=== PATIENT | male | born 1955 | race African-American/Black ===

== ENCOUNTER 2016-05-14 22:11 | Observation (INO) | payer MEDICARE, OTHER ==
[~2016-05-14] VITALS: Ht 175.3 cm; Wt 81.0 kg
[~2016-05-14 22:11] MED LIST: ALBU6.7H INH; ASPI81TA82 PO; BUME0.5T PO; CARV3.12 OR; DIGO0.25 PO; LOSA25TA31 PO; NITR0.4S SL; SPIR25TA PO; WAL-10TA2 PO
[2016-05-14 22:17] VITALS: BP 107/67; PULSE 70; RESP 16; TEMP 98; O2SAT 95
[2016-05-14 22:32] VITALS: BP 132/92; PULSE 89; RESP 18; TEMP 97.9; O2SAT 100
[2016-05-14 23:47] VITALS: PULSE 68; RESP 18; O2SAT 98
--- NOTE | 2016-05-14 23:47 | RADRPT ---
EXAM DATE/TIME: 05/14/2016 23:41 [place] COMPARISON: CHEST SINGLE AP, August 10, 2015, 2:12. INDICATIONS : Chest pain. MEDICAL HISTORY : Congestive heart failure. SURGICAL HISTORY : Pacemaker. ENCOUNTER: Initial ACUITY: 1 day PAIN SCORE: 4/10 LOCATION: Left chest FINDINGS: Pacemaker device is noted with control pack over the left chest. Lungs are focally clear. Cardiomedia stinal contours are stable with mild cardiac enlargement. CONCLUSION: No acute disease Rico Andre MD on May 14, 2016 at 23:45 Board Certified Radiologist. This report was verified electronically.
--- NOTE | 2016-05-14 23:48 | PD ---
HPI Chief Complaint: Chest Pain Time Seen by Provider: 23:29 Travel History International Travel<30 days: No Contact w/Intl Traveler<30days: No Traveled to known affect area: No History of Present Illness HPI The patient is a 61 year old male who presents to the [facility] emergency department with a history of chest pain surrounding his pacemaker site and shortness of breath that he reports is been present for the last month. He reports that he has a history of congestive heart failure with bradycardia and ventricular tachycardia managed by Dr. Styles. 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 He reports that they did do a stress test at that time that was reportedly normal. He reports that he is using an inhaler, however he denies ever being diagnosed with COPD or asthma. He denies any prior history of smoking. He reports that his cough is productive at times of clear sputum. He denies having any recent fevers or other congestion. He reports that he did have lower extremity edema previously, however this has improved with following the diet recommended by his dry mill operator. The patient reports that he did take his baby aspirin earlier today. The patient denies any recent neck pain, abdominal pain, vomiting, diarrhea, urinary symptoms, or neurologic symptoms. [facility] Past Medical History Narrative Medical The patient's past medical history is significant for a TIA, bradycardia, history of ventricular tachycardia congestive heart failure, nephrolithiasis. Hx Anticoagulant Therapy: Yes Arthritis: No Asthma: No Autoimmune Disease: No Blood Disorders: No Anxiety: No Depression: No Heart Rhythm Problems: Yes Cancer: No Cardiovascular Problems: Yes (HTN, PACEMAKER) High Cholesterol: No Chemotherapy: No Chest Pain: Yes Congestive Heart Failure: Yes COPD: No Cerebrovascular Accident: Yes (TIA) Diabetes: No Diminished Hearing: No Endocrine: No GERD: No Genitourinary: No Hiatal Hernia: No Hypertension: Yes Immune Disorder: No Kidney Stones: Yes Musculoskeletal: No Neurologic: Yes Psychiatric: No Reproductive: No Respiratory: Yes Immunizations Current: Yes Migraines: No Radiation Therapy: No Renal Failure: No Seizures: No Sleep Apnea: No Thyroid Disease: No Ulcer: No Past Surgical History Narrative Surgical The patient's past surgical history is significant for a pacemaker placement. Abdominal Surgery: No AICD: Yes Arteriovenous Shunt: No Cardiac Surgery: Yes (PACEMAKER DEFIB) Ear Surgery: No Endocrine Surgery: No Eye Surgery: No Genitourinary Surgery: No Gynecologic Surgery: No Insulin Pump: No Joint Replacement: No Oral Surgery: No Pacemaker: Yes Thoracic Surgery: No Other Surgery: Yes (glass removal from arm.) Social History Alcohol Use: No Tobacco Use: No Substance Use: No Allergies-Medications (Allergen,Severity, Reaction): Coded Allergies: No Known Allergies (Verified , 01/04/16) Reported Meds & Prescriptions Reported Meds & Active Scripts Active Reported Spironolactone 25 Mg Tab 25 Mg PO DAILY Nitroglycerin SL (Nitroglycerin) 0.4 Mg Subl 0.4 Mg SL DIRECTED PRN ONE TABLET UNDER THE TONGUE NEEDED FOR CHEST PAIN, MAY REPEAT EVERY FIVE MINUTES FOR A TOTAL OF 3 DOSES OR CALL 911 IF NO RELIEF Losartan (Losartan Potassium) 25 Mg Tab 25 Mg PO DAILY Loratadine 10 Mg Tab 10 Mg PO DAILY Digoxin 0.25 Mg Tab 0.25 Mg PO DAILY Carvedilol 3.125 Mg Tab 3.125 Mg PO BID Bumex (Bumetanide) 0.5 Mg Tab 0.5 Mg PO DAILY Aspirin 81 Mg Chew 81 Mg CHEW DAILY Proventil Hfa 6.7 GM Inh (Albuterol Sulfate) 90 Mcg/Act Aer 1 Puff INH Q4H PRN Review of Systems Except as stated in HPI: all other systems reviewed are Neg General / Constitutional: No: Fever Eyes: No: Visual changes HENT: No: Headaches Cardiovascular: Positive: Chest Pain or Discomfort, Dyspnea on exertion Respiratory: Positive: Cough, Shortness of Breath, Wheezing Gastrointestinal: No: Abdominal Pain Genitourinary: No: Dysuria Musculoskeletal: No: Pain Skin: No Rash Neurologic: No: Weakness Psychiatric: No: Depression Endocrine: No: Polydipsia Hematologic/Lymphatic: No: Easy Bruising Physical Exam Narrative General: The patient is a well-developed well-nourished male in no acute distress. Head and Neck exam: Head is normocephalic atraumatic. Eyes: EOMI, pupils are equal round and reactive to light. Nose: Midline septum with pink mucous membranes Mouth: Dentition unremarkable. Moist mucus membranes. Posterior oropharynx is not erythematous. No tonsillar hypertrophy. Uvula midline. Airway patent. Neck: No palpable lymphadenopathy. No nuchal rigidity. No thyromegaly. Cardiovascular: Regular rate and rhythm without murmurs, gallops, or rubs. No pulse deficit to the extremities and simultaneous auscultation and palpation of his radial artery. On palpation of the left side of his chest over his pacemaker, the patient has no swelling or erythema, no tenderness on palpation. No crepitus. Lungs: Soft expiratory wheezes audible in the lower lung contreras. No rhonchi, no crackles. Abdomen: Soft, without tenderness to palpation in all 4 quadrants of the abdomen. No guarding, rebound, or rigidity. Normal bowel sounds are audible. Extremities: No clubbing, cyanosis, or edema. 2+ pulses in all 4 extremities. No calf tenderness on palpation. Back: No spinous process tenderness to palpation. No costovertebral angle tenderness to palpation. Neurologic Exam: Grossly nonfocal. Skin Exam: No rash noted. Intact skin that is warm and dry. Data Data Last Documented VS Vital Signs Date Time Temp Pulse Resp B/P Pulse Ox O2 Delivery O2 Flow Rate FiO2 05/15/16 00:55 100 21 05/14/16 23:47 68 18 05/14/16 22:32 97.9 132/92 Room Air Orders Electrocardiogram (05/14/16 ) Complete Blood Count With Diff (05/14/16 23:29) Comprehensive Metabolic Panel (05/14/16 23:29) Creatine Kinase (Cpk) (05/14/16 23:29) Ckmb (Isoenzyme) Profile (05/14/16 23:29) Troponin I (05/14/16 23:29) B-Type Natriuretic Peptide (05/14/16 23:29) Prothrombin Time / Inr (Pt) (05/14/16 23:29) Act Partial Throm Time (Ptt) (05/14/16 23:29) Lipase (05/14/16 23:29) Urinalysis - C+S If Indicated (05/14/16 23:29) Magnesium (Mg) (05/14/16 23:29) Chest, Single Ap (05/14/16 23:29) Iv Access Insert/Monitor (05/14/16 23:29) Ecg Monitoring (05/14/16 23:29) Oximetry (05/14/16 23:29) Digoxin (05/15/16 00:04) CKMB (05/14/16 23:30) CKMB% (05/14/16 23:30) Nitroglycerin Sl (Nitrostat Sl) (05/15/16 01:00) Nitroglycerin 2% Oint (Nitroglycerin 2% (05/15/16 01:00) Aspirin Chew (Aspirin Chew) (05/15/16 01:00) Albuterol-Ipratropium Neb (Duoneb Neb) (05/15/16 01:00) Admit Order (Ed Use Only) (05/15/16 01:07) Labs Laboratory Tests Test 05/14/16 05/15/16 23:30 00:10 White Blood Count 4.8 TH/MM3 Red Blood Count 5.34 MIL/MM3 Hemoglobin 14.4 GM/DL Hematocrit 44.5 % Mean Corpuscular Volume 83.3 FL Mean Corpuscular Hemoglobin 27.0 PG Mean Corpuscular Hemoglobin 32.4 % Concent Red Cell Distribution Width 17.9 % Platelet Count 181 TH/MM3 Mean Platelet Volume 9.2 FL Neutrophils (%) (Auto) 57.7 % Lymphocytes (%) (Auto) 32.1 % Monocytes (%) (Auto) 9.2 % Eosinophils (%) (Auto) 0.4 % Basophils (%) (Auto) 0.6 % Neutrophils # (Auto) 2.8 TH/MM3 Lymphocytes # (Auto) 1.5 TH/MM3 Monocytes # (Auto) 0.4 TH/MM3 Eosinophils # (Auto) 0.0 TH/MM3 Basophils # (Auto) 0.0 TH/MM3 CBC Comment DIFF FINAL Differential Comment Prothrombin Time 15.5 SEC Prothromb Time International 1.4 RATIO Ratio Activated Partial 25.7 SEC Thromboplast Time Sodium Level 135 MEQ/L Potassium Level 4.8 MEQ/L Chloride Level 100 MEQ/L Carbon Dioxide Level 25.4 MEQ/L Anion Gap 10 MEQ/L Blood Urea Nitrogen 35 MG/DL Creatinine 1.84 MG/DL Estimat Glomerular Filtration 46 ML/MIN Rate Random Glucose 106 MG/DL Calcium Level 8.3 MG/DL Magnesium Level 2.0 MG/DL Total Bilirubin 1.4 MG/DL Aspartate Amino Transf 68 U/L (AST/SGOT) Alanine Aminotransferase 62 U/L (ALT/SGPT) Alkaline Phosphatase 178 U/L Total Creatine Kinase 164 U/L Creatine Kinase MB 1.8 NG/ML Troponin I 0.07 NG/ML B-Type Natriuretic Peptide 1227 PG/ML Total Protein 7.8 GM/DL Albumin 2.5 GM/DL Lipase 238 U/L Digoxin Level 0.8 NG/ML MDM Medical Decision Making Medical Screen Exam Complete: Yes Emergency Medical Condition: Yes Medical Record Reviewed: Yes Interpretation(s) Last Impressions Chest X-Ray 05/14/16 2329 Signed Impressions: Service Date/Time: Saturday, May 14, 2016 23:41 - CONCLUSION: No acute disease Rico Andre MD Differential Diagnosis Acute coronary syndrome, versus COPD exacerbation, versus congestive heart failure exacerbation, versus pneumonia Narrative Course During the course of the patients emergency department visit, the patients history, examination, and differential diagnosis were reviewed with the patient. The patient had IV access obtained and blood work sent for analysis. The patient was placed on a vegetable trimmer with oximetry and blood pressure monitoring. An EKG was ordered. The patient's EKG was compared to prior EKGs and showed no acute abnormality. The patient was provided aspirin 162 mg by mouth 1. The patient was given a DuoNeb 1. The patient was given nitroglycerin sublingual 1, nitroglycerin 1/ 2 inch the chest wall. The patients laboratory studies were reviewed and remarkable for a white count of 4.8, hemoglobin 14.4, platelets 181 with 9.2 monocytes. CMP is remarkable for sodium of 135, BUN 35, creatinine 1.84, calcium 8.3, total bilirubin 1.4, AST 68, alkaline phosphatase 178, CPK 164, troponin I of 0.07, BNP 1227, lipase 238. INR 1.4 Radiology studies were reviewed and remarkable for a chest x-ray that shows no acute abnormality. As the patient is reporting chest pain with an intermediate troponin I, the patient will be admitted to the hospital for rule out serial cardiac enzyme protocol. The patient's elevated troponin could be related to the patient's renal insufficiency which is slightly worse compared to previously. The trend of the patient's troponins will be evaluated over the next day. The patients results were discussed with the patient, including the plan of care. I explained that further testing and/ or monitoring is indicated based on the patients history, examination, and/ or laboratory findings. Therefore, I recommended admission for additional evaluation. The patient expressed understanding and was agreeable with this plan. The patient was admitted to the hospital in stable condition and sent to a bed under the care of Dr. Lopez. Physician Communication Physician Communication The patient's case was discussed with Dr. Lopez who did agree to admit the patient for further evaluation and treatment at this time Diagnosis Primary Impression: Chest pain, rule out acute myocardial infarction Additional Impression: Elevated troponin I level Admitting Information Admitting Physician Requests: Admit Tari Sanchez MD May 14, 2016 23:48
[2016-05-14 23:55] LABS: AUTOMATED NEUTROPHIL # 2.8 TH/MM3 (1.8-7.7); BASOPHIL % 0.6 % (0.0-2.0); EOSINOPHIL % 0.4 % (0.0-4.0); HEMATOCRIT 44.5 % (39.0-51.0); HEMO FLAGS DIFF FINAL; LYMPH % 32.1 % (9.0-44.0); LYMPHOCYTE # 1.5 TH/MM3 (1.0-4.8); MEAN CELL VOLUME 83.3 FL (80.0-100.0); MEAN CORPUSCULAR HGB CONC 32.4 % (32.0-36.0); MONO % 9.2 % (0.0-8.0); NEUT % 57.7 % (16.0-70.0); PLATELET COUNT 181 TH/MM3 (150-450); RED BLOOD COUNT 5.34 MIL/MM3 (4.50-5.90); RED CELL DISTRIBUTION WIDTH 17.9 % (11.6-17.2); WHITE BLOOD COUNT 4.8 TH/MM3 (4.0-11.0)
[2016-05-15] VITALS (10 sets, daily range): BP systolic 101–122; BP diastolic 65–84; PULSE 53–74; RESP 18–21; TEMP 95.8–98.8; O2SAT 90–100
[2016-05-15] MEDS ORDERED: BUME1TAB25 PO (00:03)
[2016-05-15] MEDS ORDERED: ASPI81CH CHEW (00:03)
[2016-05-15] MEDS ORDERED: NITR1SUB3 SL (00:03)
[2016-05-15] MEDS ORDERED: LOSA25TA PO (00:03)
[2016-05-15] MEDS ORDERED: LORA10TA PO (00:03)
[2016-05-15] MEDS ORDERED: DIGO0.25 PO (00:03)
[2016-05-15] MEDS ORDERED: CARV3.12 PO (00:03)
[2016-05-15] MEDS ORDERED: SPIR25TA PO (00:03)
[2016-05-15] MEDS ORDERED: ALBU6.7H INH (00:03)
[2016-05-15 00:15] LABS: ALKALINE PHOSPHATASE 178 U/L (45-117); ALT (GPT) 62 U/L (12-78); ANION GAP 10 MEQ/L (5-15); AST (GOT) 68 U/L (15-37); BICARBONATE 25.4 MEQ/L (21.0-32.0); BLOOD UREA NITROGEN 35 MG/DL (7-18); CHLORIDE 100 MEQ/L (98-107); CREATINE KINASE 164 U/L (39-308); GLOMERULAR FILTRATION RATE 46 ML/MIN (>89); POTASSIUM 4.8 MEQ/L (3.5-5.1); SODIUM (NA) 135 MEQ/L (136-145); TOTAL BILIRUBIN ADULT 1.4 MG/DL (0.2-1.0)
[2016-05-15 00:23] LABS: APTT (PATIENT) 25.7 SEC (24.3-30.1); INTERNATIONAL NORMALIZED RATIO 1.4 RATIO; PROTHROMBIN TIME - PATIENT 15.5 SEC (9.8-11.6)
[2016-05-15 00:32] LABS: CKMB 1.8 NG/ML (0.5-3.6)
[2016-05-15] MEDS ORDERED: RESP: ALBUTEROL 2.5 MG/IPRATROPIUM 0.5 MG NEB (SCH) NEB ONE (01:00)
[2016-05-15] MEDS ORDERED: NITROGLYCERIN 2% OINT 1 GM PACKET TOPICAL ONE (01:00)
[2016-05-15] MEDS ORDERED: ASPIRIN 81 MG CHEW TAB CHEW ONE (01:00)
[2016-05-15] MEDS ORDERED: NITROGLYCERIN 0.4 MG SL 25 TABS/BTL SL ONE (01:00)
[2016-05-15 01:44] LABS: BACTERIA, URINE RARE /hpf; BLOOD, URINE NEG (NEG); GLUCOSE,URINE NEG (NEG); HYALINE CAST, URINE 15 /lpf (RARE); KETONE, URINE NEG (NEG); MUCUS URINE FEW /lpf (OCC); NITRITE,URINE NEG (NEG); PH, URINE 5.5 (5.0-8.5); SQUAMOUS EPITHELIAL CELL URINE <1 /hpf (0-5); URINE COLOR YELLOW (YELLW/STRAW)
[2016-05-15 01:45] LABS: COMMENT (UR) CULT NOT INDICATED; CULTURE IF INDICATED CULT NOT INDICATED
--- NOTE | 2016-05-15 08:30 | HHI.HP ---
History of Present Illness Primary Care Physician Tao Lopez MD Admission Diagnosis cp ro mi, intermediate troponin Diagnoses: (1) CHF (congestive heart failure) (2) Elevated troponin I level (3) Chest pain, rule out acute myocardial infarction History of Present Illness 61 Y AAM. WAS AT [employer]OND[employer]OMIN[employer] YESTERDAY AND HAD CP. HE ADDS HE FELT PAIN ALL OVER LIKE HIS BODY WAS SQUEEZING IN AND THE BECAME SOB . PT RESENTED TO [facility]. PT SEEN IN ER. I WAS CALLED FOR ADMIT. PT STATES HIS CP IS GONE BUT HE IS VERY SHORT OF BREATH WITH ANY MOVEMENT. NTG RELIEVED THE PAIN. HE IS AFRAID TO MOVE HE REPORTS. PT DOES HAVE ANXIETY YET HAS HAD POOR UNDERSTANDING OF HIS CURRENT ILLNESS. Review of Systems ROS Limitations: Clinical Condition, Poor Historian Other NEGATIVE FOURTEEN POINT ROS EXCEPT ABOVE. Past Family Social History Allergies: Coded Allergies: No Known Allergies (Verified , 01/04/16) Past Medical History SCHF RI Past Surgical History PACER Active Ordered Medications Current Medications Medications (Trade) Dose Ordered Sig/Levi Route Start Time Stop Time Status Last Admin (Nitroglycerin 2% Oint) 0.5 inch Q6H TOPICAL 05/15/16 08:00 Family History NC Social History NO E/T/D; DISABLED Physical Exam Vital Signs Vital Signs Date Time Temp Pulse Resp B/P Pulse Ox O2 Delivery O2 Flow Rate FiO2 05/15/16 04:51 98.8 64 21 107/69 98 05/15/16 04:09 73 05/15/16 02:10 60 18 106/65 94 Room Air 05/15/16 00:55 100 21 05/14/16 23:47 68 18 98 05/14/16 22:32 97.9 89 18 132/92 100 Room Air 05/14/16 22:17 98.0 70 16 107/67 95 Room Air Physical Exam GENERAL: This is a well-nourished, well-developed patient, in no apparent distress. SKIN: No rashes, ecchymoses or lesions. Cool and dry. HEAD: Atraumatic. Normocephalic. No temporal or scalp tenderness. EYES: Pupils equal round and reactive. Extraocular motions intact. No scleral icterus. No injection or drainage. ENT: Nose without bleeding, purulent drainage or septal hematoma. Throat without erythema, tonsillar hypertrophy or exudate. Uvula midline. Airway patent. NECK: Trachea midline. No JVD or lymphadenopathy. Supple, nontender, no meningeal signs. CARDIOVASCULAR: Regular rate and rhythm without murmurs, gallops, or rubs. RESPIRATORY: Clear to auscultation. Breath sounds equal bilaterally. No wheezes , rales, or rhonchi. GASTROINTESTINAL: Abdomen soft, non-tender, nondistended. No hepato-splenomegaly , or palpable masses. No guarding. MUSCULOSKELETAL: Extremities without clubbing, cyanosis, or edema. No joint tenderness, effusion, or edema noted. No calf tenderness. Negative Homans sign bilaterally. NEUROLOGICAL: Awake and alert. Cranial nerves II through XII intact. Motor and sensory grossly within normal limits. 3 out of 5 muscle strength in all muscle groups. Normal speech. Laboratory Laboratory Tests Test 05/14/16 05/15/16 05/15/16 05/15/16 23:30 00:10 01:30 06:35 White Blood Count 4.8 Red Blood Count 5.34 Hemoglobin 14.4 Hematocrit 44.5 Mean Corpuscular Volume 83.3 Mean Corpuscular Hemoglobin 27.0 Mean Corpuscular Hemoglobin 32.4 Concent Red Cell Distribution Width 17.9 Platelet Count 181 Mean Platelet Volume 9.2 Neutrophils (%) (Auto) 57.7 Lymphocytes (%) (Auto) 32.1 Monocytes (%) (Auto) 9.2 Eosinophils (%) (Auto) 0.4 Basophils (%) (Auto) 0.6 Neutrophils # (Auto) 2.8 Lymphocytes # (Auto) 1.5 Monocytes # (Auto) 0.4 Eosinophils # (Auto) 0.0 Basophils # (Auto) 0.0 CBC Comment DIFF FINAL Differential Comment Prothrombin Time 15.5 Prothromb Time International 1.4 Ratio Activated Partial 25.7 Thromboplast Time Sodium Level 135 Potassium Level 4.8 Chloride Level 100 Carbon Dioxide Level 25.4 Anion Gap 10 Blood Urea Nitrogen 35 Creatinine 1.84 Estimat Glomerular Filtration 46 Rate Random Glucose 106 Calcium Level 8.3 Magnesium Level 2.0 Total Bilirubin 1.4 Aspartate Amino Transf 68 (AST/SGOT) Alanine Aminotransferase 62 (ALT/SGPT) Alkaline Phosphatase 178 Total Creatine Kinase 164 Creatine Kinase MB 1.8 Troponin I 0.07 0.06 B-Type Natriuretic Peptide 1227 Total Protein 7.8 Albumin 2.5 Lipase 238 Digoxin Level 0.8 Urine Color YELLOW Urine Turbidity CLEAR Urine pH 5.5 Urine Specific [place] 1.012 Urine Protein 30 Urine Glucose (UA) NEG Urine Ketones NEG Urine Occult Blood NEG Urine Nitrite NEG Urine Bilirubin NEG Urine Urobilinogen 2.0 Urine Leukocyte Esterase NEG Urine RBC 1 Urine WBC 2 Urine Squamous Epithelial <1 Cells Urine Bacteria RARE Urine Hyaline Casts 15 Urine Mucus FEW Microscopic Urinalysis Comment CULT NOT INDICATED Result Diagram: 05/14/16 23305/14/16 233 Imaging Last 24 hours Impressions Chest X-Ray 05/14/162328 Signed Impressions: Service Date/Time: Saturday, May 14, 2016 23:41 - CONCLUSION: No acute disease Rico Andre MD Assessment and Plan Problem List: (1) CHF (congestive heart failure) Status: Acute (2) Elevated troponin I level Status: Acute (3) Chest pain, rule out acute myocardial infarction Status: Acute Assessment and Plan NSTEMI ACS SCHF ANXIETY AC ON CKD 3 EDEMA DM PLAN: CARDIAC ENZYMES NTG PASTE ASA HEPARIN BID PROTONIX IV PT DR SOLIZ CONSULT OBS ADMIT SEE MY ORDERS PLEASE Tao Lopez MD May 15, 2016 08:30
[2016-05-15] MEDS ORDERED: BISACODYL 10 MG SUPP PR PRN (08:45)
[2016-05-15] MEDS ORDERED: ONDANSETRON HCL 4 MG/2 ML VIAL IVP PRN (08:45)
[2016-05-15] MEDS ORDERED: ACETAMINOPHEN/HYDROcodone 325 MG/5 MG TAB PO PRN (08:45)
[2016-05-15] MEDS ORDERED: ACETAMINOPHEN 325 MG TAB PO PRN (08:45)
[2016-05-15] MEDS ORDERED: MORPHINE SULFATE 8 MG/ML INJ IV PUSH PRN (08:45)
[2016-05-15] MEDS ORDERED: SODIUM CHLORIDE 0.9% FLUSH 5 ML FLUSH FLUSH PRN (08:45)
[2016-05-15] MEDS ORDERED: NALOXONE HCL 0.4 MG/ML AMP IV PRN (08:45)
[2016-05-15] MEDS ORDERED: LORazepam 0.5 MG TAB PO PRN (08:45)
[2016-05-15] MEDS ORDERED: MAGNESIUM HYDROXIDE SUSP 30 ML CUP PO PRN (08:45)
[2016-05-15] MEDS ORDERED: hydrALAZINE HCL 20 MG/ML VIAL IV PUSH PRN (08:45)
[2016-05-15] MEDS ORDERED: ENALAPRILAT 2.5 MG/2 ML VIAL IV PUSH PRN (08:45)
[2016-05-15] MEDS ORDERED: PILL SPLITTER OTHER PRN (08:45)
[2016-05-15] MEDS ORDERED: cloNIDine HCL 0.1 MG TAB PO PRN (08:45)
[2016-05-15] MEDS: HEPARIN SODIUM - SQ 10,000 UNITS/ML VIAL SQ SCH ×2 (09:00→22:03)
[2016-05-15] MEDS ORDERED: DIGOXIN 0.25 MG TAB PO SCH (09:00)
[2016-05-15] MEDS: ASPIRIN 81 MG CHEW TAB CHEW SCH (09:01)
[2016-05-15] MEDS: BUMETANIDE 1 MG TAB PO SCH (09:01)
[2016-05-15] MEDS: DOCUSATE SODIUM 100 MG CAP PO SCH ×2 (09:01→22:02)
[2016-05-15] MEDS: SPIRONOLACTONE 25 MG TAB PO SCH (09:01)
[2016-05-15] MEDS: NITROGLYCERIN 2% OINT 1 GM PACKET TOPICAL SCH ×3 (09:01→20:00)
[2016-05-15] MEDS: CARVEDILOL 3.125 MG TAB PO SCH ×2 (09:01→22:02)
[2016-05-15] MEDS: SODIUM CHLORIDE 0.9% FLUSH 5 ML FLUSH FLUSH SCH ×2 (09:02→22:02)
[2016-05-15] MEDS: PANTOPRAZOLE SODIUM 40 MG VIAL IV PUSH SCH (09:02)
--- NOTE | 2016-05-15 19:27 | EKG ---
Date Performed: 05/14/2016 Time Performed: 22:41:54 PTAGE: 61 years EKG: Sinus rhythm POSSIBLE LEFT ATRIAL ENLARGEMENT POSSIBLE ANTERIOR MYOCARDIAL INFARCTION ABNORMAL ECG PREVIOUS TRACING : 08/10/2015 10.52 DOCTOR: Jsoe Rodriguez Interpretating Date/Time 05/15/2016 19:23:28
[2016-05-15] MEDS ORDERED: ZOLPIDEM TARTRATE 5 MG TAB PO PRN (21:00)
[2016-05-16] VITALS (10 sets, daily range): BP systolic 98–121; BP diastolic 62–83; PULSE 61–112; RESP 16–20; TEMP 97.2–98.7; O2SAT 94–99
[2016-05-16] MEDS: NITROGLYCERIN 2% OINT 1 GM PACKET TOPICAL SCH ×2 (02:00→09:07)
[2016-05-16 04:15] LABS: AUTOMATED NEUTROPHIL # 2.4 TH/MM3 (1.8-7.7); BASOPHIL % 0.3 % (0.0-2.0); EOSINOPHIL % 0.6 % (0.0-4.0); HEMATOCRIT 42.1 % (39.0-51.0); HEMO FLAGS DIFF FINAL; LYMPH % 35.4 % (9.0-44.0); LYMPHOCYTE # 1.6 TH/MM3 (1.0-4.8); MEAN CELL VOLUME 83.6 FL (80.0-100.0); MEAN CORPUSCULAR HGB CONC 32.2 % (32.0-36.0); MONO % 9.4 % (0.0-8.0); NEUT % 54.3 % (16.0-70.0); PLATELET COUNT 172 TH/MM3 (150-450); RED BLOOD COUNT 5.03 MIL/MM3 (4.50-5.90); WHITE BLOOD COUNT 4.5 TH/MM3 (4.0-11.0)
[2016-05-16 04:31] LABS: BICARBONATE 25.9 MEQ/L (21.0-32.0)
--- NOTE | 2016-05-16 07:13 | MB ---
cc: WINSTON SOLIZ DATE OF CONSULTATION 05/15/2016 REASON FOR CONSULTATION Mr. Mann is a 61 year-old black male with a history of severe nonischemic cardiomyopathy, chronic systolic congestive heart failure, and Medtronic implantable defibrillator placement. He went to [place] yesterday and developed sudden shortness of breath, pain all over his body with squeezing sensation. He presented to the emergency room and had no pain, but was still short of breath. This was relieved with nitroglycerin. The patient slept well and today has no cardiac symptoms. PAST MEDICAL HISTORY Positive for: 1. Severe nonischemic cardiomyopathy with an ejection fraction of 15%. 2. Cardiac catheterization in 08/2011 showed widely patent coronary arteries. 3. Medtronic single chamber defibrillator was placed in 08/2011. 4. The patient also has a history of left elbow surgery. MEDICATIONS At home include: 1. Baby aspirin 2. Bumex 0.5 mg daily 3. Digoxin 0.25 mg daily 4. Spironolactone 25 mg daily 5. Carvedilol 3.125 mg twice a day 6. Losartan 25 mg once a day ALLERGIES None SOCIAL HISTORY The patient does not smoke or drink alcohol. FAMILY HISTORY Negative for heart disease. REVIEW OF SYSTEMS Otherwise negative. PHYSICAL EXAM Blood pressure 109/66, pulse 71 and regular. HEAD, EYES, EARS, NOSE, AND THROAT: Negative. NECK: 2+carotid upstrokes. No bruits. LUNGS: Clear. HEART: Regular with no murmur, gallop, rub. ABDOMEN: Soft, no bruits. EXTREMITIES: Without edema. 2+ distal pulses. NEUROLOGIC: Grossly nonfocal. EKG was reviewed and showed a normal sinus rhythm, delayed R-wave progression in the precordial leads. LABS Hemoglobin 14.4, potassium 4.8, creatinine 1.84, CK 164, CK-MB 1.8, 4.0, 0.07 and 0.06. BNP 1227. DIAGNOSIS 1. Acute exacerbation of chronic systolic congestive heart failure (Class 3) 2. Severe nonischemic cardiomyopathy (EF 15%) 3. Renal insufficiency 4. History of Medtronic single chamber defibrillator placement 5. Mildly abnormal troponin secondary to renal insufficiency DISPOSITION Mr. Mann likely suffered acute exacerbation of his chronic systolic congestive heart failure. He is now feeling better. I recommend to continue his therapy for heart failure including Carvedilol, Losartan and diuretics. He may need to decrease his Digoxin dose due to his renal insufficiency. His cardiac catheterization in 2011 showed widely patent coronary arteries. I do not believe his presentation is consistent with acute coronary syndrome. I recommend to increase his activities. He may benefit from renal evaluation. I will follow him for cardiology as an outpatient in our office after discharge. MD ADOLFO Blue/MAGNOLIA /2:56 PM /6:56 AM MTDGómez
[2016-05-16] MEDS: DOCUSATE SODIUM 100 MG CAP PO SCH ×2 (09:00→19:45)
[2016-05-16] MEDS ORDERED: DIGOXIN 0.125 MG TAB PO SCH (09:00)
[2016-05-16] MEDS: HEPARIN SODIUM - SQ 10,000 UNITS/ML VIAL SQ SCH ×2 (09:00→19:44)
[2016-05-16] MEDS: PANTOPRAZOLE SODIUM 40 MG VIAL IV PUSH SCH (09:07)
[2016-05-16] MEDS: SPIRONOLACTONE 25 MG TAB PO SCH (09:07)
[2016-05-16] MEDS: BUMETANIDE 1 MG TAB PO SCH (09:08)
[2016-05-16] MEDS: ASPIRIN 81 MG CHEW TAB CHEW SCH (09:08)
[2016-05-16] MEDS: CARVEDILOL 3.125 MG TAB PO SCH ×2 (09:08→19:44)
[2016-05-16] MEDS: SODIUM CHLORIDE 0.9% FLUSH 5 ML FLUSH FLUSH SCH ×2 (09:09→19:44)
--- NOTE | 2016-05-16 09:45 | HHI.FPPN ---
Subjective Remarks C/O SOB C/O WEAKNESS TELE REVIEWED LABS REVIEWED SPECIALISTS NOTES REVIEWED D/W RN Objective Vitals Vital Signs Date Time Temp Pulse Resp B/P Pulse Ox O2 Delivery O2 Flow Rate FiO2 05/16/16 08:00 97.2 62 18 104/73 99 05/16/16 04:14 97.9 86 20 98/69 94 05/16/16 00:40 97.8 72 20 103/79 94 05/15/16 20:02 72 05/15/16 19:13 53 05/15/16 19:04 97.9 74 18 110/84 96 05/15/16 16:00 96.0 70 20 101/81 90 05/15/16 12:00 95.8 71 20 109/66 95 I/O 05/15/16 05/15/16 05/15/16 05/16/16 05/16/16 05/16/16 07:00 15:00 23:00 07:00 15:00 23:00 Intake Total 0 ml Balance 0 ml Intake Oral 0 ml # Voids 1 1 Result Diagram: 05/16/16 0337 05/16/16 0354 Objective Remarks GENERAL: SKIN: Warm and dry. HEAD: Atraumatic. Normocephalic. EYES: Pupils equal and round. No scleral icterus. No injection or drainage. ENT: No nasal bleeding or discharge. Mucous membranes pink and moist. NECK: Trachea midline. No JVD. CARDIOVASCULAR: Regular rate and rhythm. RESPIRATORY: No accessory muscle use. Clear to auscultation. Breath sounds equal bilaterally. GASTROINTESTINAL: Abdomen soft, non-tender, nondistended. Hepatic and splenic margins not palpable. MUSCULOSKELETAL: Extremities without clubbing, cyanosis, or edema. No obvious deformities. NEUROLOGICAL: Awake and alert. No obvious cranial nerve deficits. Motor grossly within normal limits. 3 out of 5 muscle strength in the arms and legs. Normal speech. PSYCHIATRIC: Appropriate mood and affect; insight and judgment normal. Medications and IVs Current Medications Medications (Trade) Dose Ordered Sig/Levi Route Start Time Stop Time Status Last Admin (Nitroglycerin 2% Oint) 0.5 inch Q6H TOPICAL 05/15/16 08:00 05/15/16 09:01 (Aspirin Chew) 81 mg DAILY CHEW 05/15/16 09:00 05/16/16 09:08 (Bumetanide) 0.5 mg DAILY PO 05/15/16 09:00 05/16/16 09:08 (Coreg) 3.125 mg BID PO 05/15/16 09:00 05/16/16 09:08 (Aldactone) 25 mg DAILY PO 05/15/16 09:00 05/16/16 09:07 (NS Flush) 2 ml UNSCH PRN FLUSH 05/15/16 08:45 (NS Flush) 2 ml BID FLUSH 05/15/16 09:00 05/16/16 09:09 (Tylenol) 650 mg Q4H PRN PO 05/15/16 08:45 (Zofran Inj) 4 mg Q6H PRN IVP 05/15/16 08:45 (Dulcolax Supp) 10 mg DAILY PRN [place] 05/15/16 08:45 (Colace) 100 mg Q12HR PO 05/15/16 09:00 05/15/16 22:02 (Milk Of Magnesia Liq) 30 ml Q12H PRN PO 05/15/16 08:45 (Ambien) 5 mg HS PRN PO 05/15/16 21:00 (Heparin Inj) 5,000 units Q12H SQ 05/15/16 09:00 05/15/16 22:03 (Narcan Inj) 0.4 mg UNSCH PRN IV 05/15/16 08:45 (Apresoline Inj) 20 mg Q4H PRN IV PUSH 05/15/16 08:45 (Catapres) 0.1 mg Q6H PRN PO 05/15/16 08:45 (Ativan) 0.5 mg Q8H PRN PO 05/15/16 08:45 ([place] 5-325 Mg) 1 tab Q4H PRN PO 05/15/16 08:45 (Vasotec Inj) 2.5 mg Q6H PRN IV PUSH 05/15/16 08:45 (Morphine Inj) 5 mg Q4H PRN IV PUSH 05/15/16 08:45 (Protonix Inj) 40 mg Q24H IV PUSH 05/15/16 08:45 05/16/16 09:07 (Pill Splitter) 1 ea UNSCH PRN OTHER 05/15/16 08:45 (Lanoxin) 0.125 mg DAILY PO 05/16/16 09:00 05/16/16 09:08 A/P Problem List: (1) CHF (congestive heart failure) Status: Acute (2) Elevated troponin I level Status: Acute (3) Chest pain, rule out acute myocardial infarction Status: Acute Plan: NSTEMI ACS SCHF ANXIETY AC ON CKD 3 EDEMA DM PLAN: RENAL US RENAL CONSULT STOP NTG HOLD DIG ON T AND FRI CARDIAC ENZYMES ASA HEPARIN BID PROTONIX IV PT QUADRAT CONSULT OBS ADMIT SEE MY ORDERS PLEASE MAYBE DC TOMORROW. Tao Lopez MD May 16, 2016 09:45
--- NOTE | 2016-05-16 11:46 | RADRPT ---
EXAM DATE/TIME: 05/16/2016 09:51 [facility] COMPARISON: No previous studies available for comparison. INDICATIONS : Increased BUN and creatinine. MEDICAL HISTORY : Congestive heart failure. Hypertension. Renal calculi. Dyspnea. Gallbladder disease. Transient ischem ic attack. SURGICAL HISTORY : Eye prosthesis. Pacemaker. Left elbow surgery. ENCOUNTER: Initial ACUITY: 1 day PAIN SCORE: 0/10 LOCATION: Bilateral flank MEASUREMENTS: RIGHT KIDNEY: 9.0 x 4.6 x 4.4 cm LEFT KIDNEY: 10.0 x 4.7 x 5.8 cm FINDINGS: The kidneys demonstrates increased echogenicity of the cortex compatible with medical renal disease. No hydronephrosis or mass lesions are identified. There is a 1 cm cyst in the upper pole the right ki dney. Left pleural effusion is seen. The bladder appears normal. No wall thickening or intraluminal m asses are identified. CONCLUSION: 1. Echogenic kidneys bilaterally compatible with medical renal disease. Braden Treviño MD on May 16, 2016 at 11:44 Board Certified Radiologist. This report was verified electronically.
--- NOTE | 2016-05-16 19:38 | PD.CONS ---
HPI Service Nephrology Consult Requested By Dr. Styles Reason for Consult MICHELLE Primary Care Physician Tao Lopez MD History of Present Illness patient is a 61 year old male with history of Cardiomyopathy EF 15%, AICD placement came is with increasing shortness of breath while he was at [facility] his breathing got worse and he has to come in next day , he receive diuretics with good response and kidney US showed echogenic kidney, old records revealed creatinine 1.3 in January 2016. He has a creatinine of 18- 1.6 range upon this admission. Review of Systems Constitutional: COMPLAINS OF: Fatigue Respiratory: COMPLAINS OF: Shortness of breath Cardiovascular: COMPLAINS OF: Dyspnea on Exertion Past Family Social History Allergies: Coded Allergies: No Known Allergies (Verified , 01/04/16) Past Medical History Cardiomyopathy EF 15% AICD RI COPD Past Surgical History AICD Placement Heart catheterization Reported Medications Reported Meds & Active Scripts Active Reported Spironolactone 25 Mg Tab 25 Mg PO DAILY Nitroglycerin SL (Nitroglycerin) 0.4 Mg Subl 0.4 Mg SL DIRECTED PRN ONE TABLET UNDER THE TONGUE NEEDED FOR CHEST PAIN, MAY REPEAT EVERY FIVE MINUTES FOR A TOTAL OF 3 DOSES OR CALL 911 IF NO RELIEF Losartan (Losartan Potassium) 25 Mg Tab 25 Mg PO DAILY Loratadine 10 Mg Tab 10 Mg PO DAILY Digoxin 0.25 Mg Tab 0.25 Mg PO DAILY Carvedilol 3.125 Mg Tab 3.125 Mg PO BID Bumex (Bumetanide) 0.5 Mg Tab 0.5 Mg PO DAILY Aspirin 81 Mg Chew 81 Mg CHEW DAILY Proventil Hfa 6.7 GM Inh (Albuterol Sulfate) 90 Mcg/Act Aer 1 Puff INH Q4H PRN Active Ordered Medications Current Medications Medications (Trade) Dose Ordered Sig/Levi Route Start Time Stop Time Status Last Admin (Aspirin Chew) 81 mg DAILY CHEW 05/15/16 09:00 05/16/16 09:08 (Bumetanide) 0.5 mg DAILY PO 05/15/16 09:00 05/16/16 09:08 (Coreg) 3.125 mg BID PO 05/15/16 09:00 05/16/16 09:08 (Aldactone) 25 mg DAILY PO 05/15/16 09:00 05/16/16 09:07 (NS Flush) 2 ml UNSCH PRN FLUSH 05/15/16 08:45 (NS Flush) 2 ml BID FLUSH 05/15/16 09:00 05/16/16 09:09 (Tylenol) 650 mg Q4H PRN PO 05/15/16 08:45 (Zofran Inj) 4 mg Q6H PRN IVP 05/15/16 08:45 (Dulcolax Supp) 10 mg DAILY PRN MN 05/15/16 08:45 (Colace) 100 mg Q12HR PO 05/15/16 09:00 05/15/16 22:02 (Milk Of Sonia Liq) 30 ml Q12H PRN PO 05/15/16 08:45 (Ambien) 5 mg HS PRN PO 05/15/16 21:00 (Heparin Inj) 5,000 units Q12H SQ 05/15/16 09:00 05/15/16 22:03 (Narcan Inj) 0.4 mg UNSCH PRN IV 05/15/16 08:45 (Apresoline Inj) 20 mg Q4H PRN IV PUSH 05/15/16 08:45 (Catapres) 0.1 mg Q6H PRN PO 05/15/16 08:45 (Ativan) 0.5 mg Q8H PRN PO 05/15/16 08:45 ([place] 5-325 Mg) 1 tab Q4H PRN PO 05/15/16 08:45 (Vasotec Inj) 2.5 mg Q6H PRN IV PUSH 05/15/16 08:45 (Morphine Inj) 5 mg Q4H PRN IV PUSH 05/15/16 08:45 (Pill Splitter) 1 ea UNSCH PRN OTHER 05/15/16 08:45 (Protonix) 40 mg DAILY PO 05/17/16 09:00 (Lanoxin) 0.125 mg DAILY PO 05/17/16 09:00 Family History noncontributory Social History denies smoking/ETOH Physical Exam Vital Signs Vital Signs Date Time Temp Pulse Resp B/P Pulse Ox O2 Delivery O2 Flow Rate FiO2 05/16/16 15:58 97.6 64 16 100/83 95 05/16/16 12:36 97.5 64 18 100/62 94 05/16/16 10:00 70 05/16/16 09:50 98 21 05/16/16 08:00 97.2 62 18 104/73 99 05/16/16 04:14 97.9 86 20 98/69 94 05/16/16 00:40 97.8 72 20 103/79 94 05/15/16 20:02 72 Physical Exam GENERAL: Well-nourished, well-developed patient. SKIN: Warm and dry. HEAD: Normocephalic. EYES: No scleral icterus. No injection or drainage. NECK: Supple, trachea midline. No JVD or lymphadenopathy. CARDIOVASCULAR: Regular rate and rhythm without murmurs, gallops, or rubs. RESPIRATORY: Breath sounds Diminished at bases. No accessory muscle use. GASTROINTESTINAL: Abdomen soft, non-tender, nondistended. EXTREMITIES: No cyanosis, or edema. NEUROLOGICAL: Awake, alert, and oriented x 3. Non-focal. Laboratory Laboratory Tests Test 05/16/16 05/16/16 03:37 03:54 White Blood Count 4.5 Red Blood Count 5.03 Hemoglobin 13.6 Hematocrit 42.1 Mean Corpuscular Volume 83.6 Mean Corpuscular Hemoglobin 27.0 Mean Corpuscular Hemoglobin 32.2 Concent Red Cell Distribution Width 18.0 Platelet Count 172 Mean Platelet Volume 9.1 Neutrophils (%) (Auto) 54.3 Lymphocytes (%) (Auto) 35.4 Monocytes (%) (Auto) 9.4 Eosinophils (%) (Auto) 0.6 Basophils (%) (Auto) 0.3 Neutrophils # (Auto) 2.4 Lymphocytes # (Auto) 1.6 Monocytes # (Auto) 0.4 Eosinophils # (Auto) 0.0 Basophils # (Auto) 0.0 CBC Comment DIFF FINAL Differential Comment Sodium Level 135 Potassium Level 4.0 Chloride Level 99 Carbon Dioxide Level 25.9 Anion Gap 10 Blood Urea Nitrogen 34 Creatinine 1.67 Estimat Glomerular Filtration 51 Rate Random Glucose 115 Calcium Level 8.7 Result Diagram: 05/16/16 0337 05/16/16 0354 Imaging Last Impressions Renal Ultrasound 05/16/16 0000 Signed Impressions: Service Date/Time: Monday, May 16, 2016 09:51 - CONCLUSION: 1. Echogenic kidneys bilaterally compatible with medical renal disease. Braden Treviño MD Chest X-Ray 05/14/16 2329 Signed Impressions: Service Date/Time: Saturday, May 14, 2016 23:41 - CONCLUSION: No acute disease Rico Andre MD Assessment and Plan Problem List: (1) Acute renal failure Plan: Patient is diuresing and he may have cardiorenal syndrome due to poor EF causing relative ischemia leading to nephrosclerosis this can be followed as out patient check STEPHAN, C3, SPEP Discharge planning can send patient home follow up in 2 weeks (2) CKD (chronic kidney disease) stage 3, GFR 30-59 ml/min Plan: likely etiology as above (3) CHF (congestive heart failure) Plan: EF 15% Cardiology following Jacek oPtter MD May 16, 2016 19:38
[2016-05-17 04:01] VITALS: BP 109/73; PULSE 63; RESP 18; TEMP 97.8; O2SAT 95
[2016-05-17 04:29] LABS: AUTOMATED NEUTROPHIL # 2.5 TH/MM3 (1.8-7.7); BASOPHIL % 0.3 % (0.0-2.0); EOSINOPHIL % 0.6 % (0.0-4.0); HEMATOCRIT 46.1 % (39.0-51.0); HEMO FLAGS DIFF FINAL; LYMPH % 32.5 % (9.0-44.0); LYMPHOCYTE # 1.4 TH/MM3 (1.0-4.8); MEAN CELL VOLUME 86.9 FL (80.0-100.0); MEAN CORPUSCULAR HEMOGLOBIN 26.5 PG (27.0-34.0); MEAN CORPUSCULAR HGB CONC 30.5 % (32.0-36.0); MONO % 9.4 % (0.0-8.0); NEUT % 57.2 % (16.0-70.0); PLATELET COUNT 157 TH/MM3 (150-450); RED BLOOD COUNT 5.31 MIL/MM3 (4.50-5.90); RED CELL DISTRIBUTION WIDTH 18.7 % (11.6-17.2); WHITE BLOOD COUNT 4.5 TH/MM3 (4.0-11.0)
[2016-05-17 04:53] LABS: BICARBONATE 29.3 MEQ/L (21.0-32.0); POTASSIUM 4.1 MEQ/L (3.5-5.1)
[2016-05-17 04:54] LABS: TOTAL PROTEIN SPE 7.3 GM/DL (6.0-7.6)
[2016-05-17 07:56] VITALS: BP 98/60; PULSE 64; RESP 18; TEMP 97.6; O2SAT 94
[2016-05-17 08:10] VITALS: PULSE 68
[2016-05-17] MEDS: SPIRONOLACTONE 25 MG TAB PO SCH (09:00)
[2016-05-17] MEDS ORDERED: DIGOXIN 0.125 MG TAB PO SCH (09:00)
[2016-05-17] MEDS ORDERED: PANTOPRAZOLE SOD 40 MG DELAYED RELEASE TAB PO SCH (09:00)
[2016-05-17] MEDS: HEPARIN SODIUM - SQ 10,000 UNITS/ML VIAL SQ SCH (09:00)
[2016-05-17] MEDS: SODIUM CHLORIDE 0.9% FLUSH 5 ML FLUSH FLUSH SCH (09:00)
[2016-05-17] MEDS: CARVEDILOL 3.125 MG TAB PO SCH (09:01)
[2016-05-17] MEDS: ASPIRIN 81 MG CHEW TAB CHEW SCH (09:01)
[2016-05-17] MEDS: BUMETANIDE 1 MG TAB PO SCH (09:01)
[2016-05-17] MEDS: DOCUSATE SODIUM 100 MG CAP PO SCH (09:01)
[2016-05-17 09:35] LABS: ALBUMIN SPE 2.82 GM/DL (3.50-5.00); ALPHA 1 GLOBULIN 0.28 GM/DL (0.11-0.29); ALPHA 2 GLOBULIN 0.96 GM/DL (0.22-1.00); BETA GLOBULINS (SPE) 0.92 GM/DL (0.53-1.03)
--- NOTE | 2016-05-17 10:18 | HHI.DS ---
Discharge Summary Admission Date May 15, 2016 at 01:09 Discharge Date: May 17, 2016 Admitting Diagnosis cp ro mi, intermediate troponin (1) CHF (congestive heart failure) (2) Elevated troponin I level (3) Chest pain, rule out acute myocardial infarction (4) Acute renal failure (5) CKD (chronic kidney disease) stage 3, GFR 30-59 ml/min Brief History 61 Y AAM. WAS AT [employer] YESTERDAY AND HAD CP. HE ADDS HE FELT PAIN ALL OVER LIKE HIS BODY WAS SQUEEZING IN AND THE BECAME SOB . PT RESENTED TO [facility] [place] ER. PT SEEN IN ER. I WAS CALLED FOR ADMIT. PT STATES HIS CP IS GONE BUT HE IS VERY SHORT OF BREATH WITH ANY MOVEMENT. NTG RELIEVED THE PAIN. HE IS AFRAID TO MOVE HE REPORTS. PT DOES HAVE ANXIETY YET HAS HAD POOR UNDERSTANDING OF HIS CURRENT ILLNESS. CBC/BMP: 05/17/16 0400 05/17/16 0400 Significant Findings Laboratory Tests Test 05/14/16 05/15/16 05/15/16 05/16/16 23:30 01:30 06:35 03:37 Red Cell Distribution Width 17.9 % 18.0 % (11.6-17.2) (11.6-17.2) Monocytes (%) (Auto) 9.2 % (0.0-8.0) 9.4 % (0.0-8.0) Prothrombin Time 15.5 SEC (9.8-11.6) Sodium Level 135 MEQ/L (136-145) Blood Urea Nitrogen 35 MG/DL (7-18) Creatinine 1.84 MG/DL (0.60-1.30) Estimat Glomerular Filtration 46 ML/MIN (>89) Rate Calcium Level 8.3 MG/DL (8.5-10.1) Total Bilirubin 1.4 MG/DL (0.2-1.0) Aspartate Amino Transf 68 U/L (15-37) (AST/SGOT) Alkaline Phosphatase 178 U/L (45-117) Troponin I 0.07 NG/ML 0.06 NG/ML (0.02-0.05) (0.02-0.05) B-Type Natriuretic Peptide 1227 PG/ML (0-100) Albumin 2.5 GM/DL (3.4-5.0) Urine Protein 30 mg/dL (NEG-TRACE) Urine Bacteria RARE /hpf (NONE) Urine Mucus FEW /lpf (OCC) Test 05/16/16 05/17/16 03:54 04:00 Sodium Level 135 MEQ/L 134 MEQ/L (136-145) (136-145) Blood Urea Nitrogen 34 MG/DL (7-18) 33 MG/DL (7-18) Creatinine 1.67 MG/DL 1.59 MG/DL (0.60-1.30) (0.60-1.30) Estimat Glomerular Filtration 51 ML/MIN (>89) 54 ML/MIN (>89) Rate Random Glucose 115 MG/DL 152 MG/DL (74-106) (74-106) Mean Corpuscular Hemoglobin 26.5 PG (27.0-34.0) Mean Corpuscular Hemoglobin 30.5 % Concent (32.0-36.0) Red Cell Distribution Width 18.7 % (11.6-17.2) Monocytes (%) (Auto) 9.4 % (0.0-8.0) Calcium Level 8.4 MG/DL (8.5-10.1) Albumin 2.82 GM/DL (3.50-5.00) Albumin/Globulin Ratio 0.63 (1.39-2.23) Gamma Globulins 2.32 GM/DL (0.50-1.39) PE at Discharge GENERAL: SKIN: Warm and dry. HEAD: Atraumatic. Normocephalic. EYES: Pupils equal and round. No scleral icterus. No injection or drainage. ENT: No nasal bleeding or discharge. Mucous membranes pink and moist. NECK: Trachea midline. No JVD. CARDIOVASCULAR: Regular rate and rhythm. RESPIRATORY: No accessory muscle use. Clear to auscultation. Breath sounds equal bilaterally. GASTROINTESTINAL: Abdomen soft, non-tender, nondistended. Hepatic and splenic margins not palpable. MUSCULOSKELETAL: Extremities without clubbing, cyanosis, or edema. No obvious deformities. NEUROLOGICAL: Awake and alert. No obvious cranial nerve deficits. Motor grossly within normal limits. Five out of 5 muscle strength in the arms and legs. Normal speech. PSYCHIATRIC: Appropriate mood and affect; insight and judgment normal. Hospital Course 61 y AAM, ADMIT WITH - NSTEMI ACS SCHF ANXIETY CARDIORENAL SYNDROME AC ON CKD 3 EDEMA DM PLAN: RENAL US - RENAL CONSULT STOP NTG HOLD DIG ON T AND FRI CARDIAC ENZYMES ASA HEPARIN BID PROTONIX IV PT DR STYLES CONSULT OBS ADMIT SEE MY ORDERS PLEASE Discharge Instructions Follow up Referrals: Cardiology - 1 Week with Chace Styles MD Nephrology - [address] SHANIA YOUNGER PCP Follow-up - 1 Week New Medications: Ipratropium-Albuterol Neb (Duoneb) 0.5-2.5 Mg/3 Ml Neb 1 NEBULE INH Q6HR NEB PRN SHORTNESS OF BREATH #120 Ref 11 NEBULE Continued Medications: Albuterol 6.7 GM Inh (Proventil Hfa 6.7 GM Inh) 90 Mcg/Act Aer 1 PUFF INH Q4H PRN SHORTNESS OF BREATH #1 Ref 0 INHALER Aspirin (Aspirin) 81 Mg Chew 81 MG CHEW DAILY Ref 0 TAB Bumetanide (Bumex) 0.5 Mg Tab 0.5 MG PO DAILY Ref 0 TAB Carvedilol (Carvedilol) 3.125 Mg Tab 3.125 MG PO BID #60 Ref 0 TAB Digoxin (Digoxin) 0.25 Mg Tab 0.25 MG PO DAILY Regulate Heart Beat #30 Ref 0 TAB Loratadine (Loratadine) 10 Mg Tab 10 MG PO DAILY Allergy Management Ref 0 TAB Losartan (Losartan) 25 Mg Tab 25 MG PO DAILY Blood Pressure Management #30 Ref 0 TAB Nitroglycerin SL (Nitroglycerin SL) 0.4 Mg Subl 0.4 MG SL DIRECTED ONE TABLET UNDER THE TONGUE NEEDED FOR CHEST PAIN, MAY REPEAT EVERY FIVE MINUTES FOR A TOTAL OF 3 DOSES OR CALL 911 IF NO RELIEF PRN CHEST PAIN #100 Ref 0 TAB.SL Spironolactone (Spironolactone) 25 Mg Tab 25 MG PO DAILY #30 Ref 0 TAB Tao Lopez MD May 17, 2016 10:18
--- NOTE | 2016-05-17 10:20 | HHI.DCPOC ---
Discharge Care Plan Diagnosis: (1) CHF (congestive heart failure) (2) Elevated troponin I level (3) Chest pain, rule out acute myocardial infarction (4) Acute renal failure (5) CKD (chronic kidney disease) stage 3, GFR 30-59 ml/min Goals to Promote Your Health * To prevent worsening of your condition and complications * To maintain your health at the optimal level Directions to Meet Your Goals Take your medications as prescribed Follow your dietary instruction Follow activity as directed Keep your appointments as scheduled Take your immunizations and boosters as scheduled If your symptoms worsen call your PCP, if no PCP go to Urgent Care Center or Emergency Room Smoking is Dangerous to Your Health. Avoid second hand smoke Call the 24-hour hour crisis hotline for domestic abuse at Tao Lopez MD May 17, 2016 10:20
[2016-05-17] MEDS ORDERED: IPRASOL INH (10:23)
== END 2016-05-17 11:52 | disposition home or self-care (01) ==
LOC: NEPE 22:11 → INTOOBSV 05-15 01:09 → NEDA 05-15 01:09 → NEPFCDU 05-15 03:43
PROVIDERS: ADMIT Family Medicine; ATTEND Family Medicine
DX: I13.0 Hypertensive heart and chronic kidney disease with heart failure and stage 1 through stage 4 chronic kidney disease, or unspecified chronic kidney disease (principal); I50.23 Acute on chronic systolic (congestive) heart failure; N18.3 Chronic kidney disease, stage 3 (moderate); N17.9 Acute kidney failure, unspecified; N28.9 Disorder of kidney and ureter, unspecified; R79.89 Other specified abnormal findings of blood chemistry; I42.8 Other cardiomyopathies; F41.9 Anxiety disorder, unspecified; R06.02 Shortness of breath; Z95.0 Presence of cardiac pacemaker; Z79.01 Long term (current) use of anticoagulants; Z86.73 Personal history of transient ischemic attack (TIA), and cerebral infarction without residual deficits
CPT/HCPCS: 71010; 76775; 80048; 80053; 80162; 81001; 82550; 82552; 83690; 83735; 83880; 84100; 84165; 84484; 85025; 85610; 85730; 86038; 86160; 93005; 94664; 97161; 99285; C9113; G0378; G8987; G8988; J1644

== ENCOUNTER 2016-10-02 04:54 | Observation (INO) | payer MEDICARE, OTHER ==
[2016-10-02] VITALS (9 sets, daily range): BP systolic 89–114; BP diastolic 60–87; PULSE 32–69; RESP 15–22; TEMP 95.4–98.2; O2SAT 93–97
[~2016-10-02] VITALS: Ht 175.3 cm; Wt 77.5 kg
[~2016-10-02 04:54] MED LIST changes: +ASPI81CH CHEW; -ASPI81TA82 PO; -BUME0.5T PO; +BUME1TAB25 PO; -CARV3.12 OR; +CARV3.12 PO; +IPRASOL INH; +LORA10TA PO; +LOSA25TA PO; -LOSA25TA31 PO; -NITR0.4S SL; +NITR1SUB3 SL; -WAL-10TA2 PO
[2016-10-02] MEDS ORDERED: TRAM50TA PO (05:12)
[2016-10-02] MEDS ORDERED: ZOFR4TAB PO (05:12)
[2016-10-02] MEDS ORDERED: POTA10CA PO (05:12)
--- NOTE | 2016-10-02 05:30 | PD ---
HPI Chief Complaint: Edema Time Seen by Provider: 05:08 Travel History International Travel<30 days: No Contact w/Intl Traveler<30days: No Traveled to known affect area: No History of Present Illness HPI 61-year-old male complains of shortness of breath, chest discomfort, bilateral lower extremity swelling. Patient states that the symptoms started a week ago. Patient has history of CHF, chronic kidney disease, severe nonischemic cardiomyopathy, [employer] implantable defibrillator placement. Patient states that he noticed bilateral lower extremity swelling more than usual for the past week. Patient denies any headache. Patient states that he has shortness of breath. Patient states that he has occasional chest discomfort. Patient states that he had rattling cough recently. Patient denies any fever chills. Patient denies abdominal pain. Patient denies any nausea vomiting diarrhea. Patient denies any recent injury to lower extremity. Patient denies history of DVT or PE. Patient is on Bumex 0.5 mg daily and has been taking it as directed. Patient also on spironolactone 25 mg daily. PFSH Past Medical History Hx Anticoagulant Therapy: Yes Arthritis: No Asthma: No Autoimmune Disease: No Blood Disorders: No Anxiety: No Depression: No Heart Rhythm Problems: Yes Cancer: No Cardiovascular Problems: Yes High Cholesterol: No Chemotherapy: No Chest Pain: Yes Congestive Heart Failure: Yes COPD: No Cerebrovascular Accident: Yes (TIA) Diabetes: No Diminished Hearing: No Endocrine: No GERD: No Genitourinary: No Hiatal Hernia: No Hypertension: Yes Immune Disorder: No Implanted Vascular Access Dvce: Yes Kidney Stones: Yes Musculoskeletal: No Neurologic: Yes Psychiatric: No Reproductive: No Respiratory: Yes Immunizations Current: Yes Migraines: No Radiation Therapy: No Renal Failure: No Seizures: No Sleep Apnea: No Thyroid Disease: No Ulcer: No Past Surgical History Abdominal Surgery: No AICD: Yes Arteriovenous Shunt: No Cardiac Surgery: Yes (PACEMAKER DEFIB) Ear Surgery: No Endocrine Surgery: No Eye Surgery: No Genitourinary Surgery: No Gynecologic Surgery: No Insulin Pump: No Joint Replacement: No Oral Surgery: No Pacemaker: Yes Thoracic Surgery: No Other Surgery: Yes (glass removal from arm.) Social History Alcohol Use: No Tobacco Use: No Substance Use: No Allergies-Medications (Allergen,Severity, Reaction): Coded Allergies: No Known Allergies (Verified , 10/02/16) Reported Meds & Prescriptions Reported Meds & Active Scripts Active Reported Zofran (Ondansetron HCl) 4 Mg Tab 4 Mg PO Q6HR PRN Tramadol (Tramadol HCl) 50 Mg Tab 50 Mg PO Q4H PRN Potassium Chloride ER (Potassium Chloride) 10 Meq Cap 10 Meq PO DAILY Spironolactone 25 Mg Tab 25 Mg PO DAILY Losartan (Losartan Potassium) 25 Mg Tab 25 Mg PO DAILY Digoxin 0.25 Mg Tab 0.25 Mg PO DAILY Carvedilol 3.125 Mg Tab 3.125 Mg PO BID Aspirin 81 Mg Chew 81 Mg CHEW DAILY Review of Systems General / Constitutional: No: Fever Eyes: No: Visual changes HENT: No: Headaches Cardiovascular: No: Chest Pain or Discomfort Respiratory: Positive: Cough, Shortness of Breath Gastrointestinal: No: Abdominal Pain Genitourinary: No: Dysuria Musculoskeletal: Positive: Edema, No: Pain Skin: No Rash Neurologic: No: Weakness Psychiatric: No: Depression Endocrine: No: Polydipsia Hematologic/Lymphatic: No: Easy Bruising Physical Exam Narrative GENERAL: Well-nourished, well-developed patient. SKIN: Focused skin assessment warm/dry. HEAD: Normocephalic. EYES: No scleral icterus. No injection or drainage. NECK: Supple, trachea midline. No JVD or lymphadenopathy. CARDIOVASCULAR: Regular rate and rhythm without murmurs, gallops, or rubs. RESPIRATORY: Breath sounds equal bilaterally. No accessory muscle use. GASTROINTESTINAL: Abdomen soft, non-tender, nondistended. MUSCULOSKELETAL: Patient had +2 pitting edema lower extremity. BACK: Nontender without obvious deformity. No CVA tenderness. Neurologic exam normal. Data Data Last Documented VS Vital Signs Date Time Temp Pulse Resp B/P Pulse Ox O2 Delivery O2 Flow Rate FiO2 10/02/16 06:00 68 20 106/69 93 Room Air 10/02/16 05:03 98.2 Orders Electrocardiogram (10/02/16 05:19) Complete Blood Count With Diff (10/02/16 05:19) Comprehensive Metabolic Panel (10/02/16 05:19) Creatine Kinase (Cpk) (10/02/16 05:19) Troponin I (10/02/16 05:19) B-Type Natriuretic Peptide (10/02/16 05:19) Prothrombin Time / Inr (Pt) (10/02/16 05:19) Act Partial Throm Time (Ptt) (10/02/16 05:19) Urinalysis - C+S If Indicated (10/02/16 05:19) Thyroid Stimulating Hormone (10/02/16 05:19) Chest, Single Ap (10/02/16 05:19) Iv Access Insert/Monitor (10/02/16 05:19) Ecg Monitoring (10/02/16 05:19) Oximetry (10/02/16 05:19) Us Leg Venous Doppler Bilat (10/02/16 05:19) Labs Laboratory Tests Test 10/02/16 05:15 White Blood Count 5.0 TH/MM3 Red Blood Count 5.11 MIL/MM3 Hemoglobin 13.6 GM/DL Hematocrit 41.4 % Mean Corpuscular Volume 80.9 FL Mean Corpuscular Hemoglobin 26.5 PG Mean Corpuscular Hemoglobin 32.7 % Concent Red Cell Distribution Width 21.4 % Platelet Count 193 TH/MM3 Mean Platelet Volume 10.1 FL Neutrophils (%) (Auto) 61.4 % Lymphocytes (%) (Auto) 27.3 % Monocytes (%) (Auto) 9.9 % Eosinophils (%) (Auto) 0.8 % Basophils (%) (Auto) 0.6 % Neutrophils # (Auto) 3.1 TH/MM3 Lymphocytes # (Auto) 1.4 TH/MM3 Monocytes # (Auto) 0.5 TH/MM3 Eosinophils # (Auto) 0.0 TH/MM3 Basophils # (Auto) 0.0 TH/MM3 CBC Comment DIFF FINAL Differential Comment Prothrombin Time 14.7 SEC Prothromb Time International 1.3 RATIO Ratio Activated Partial 26.5 SEC Thromboplast Time Sodium Level 135 MEQ/L Potassium Level 5.5 MEQ/L Chloride Level 99 MEQ/L Carbon Dioxide Level 28.9 MEQ/L Anion Gap 7 MEQ/L Blood Urea Nitrogen 43 MG/DL Creatinine 2.02 MG/DL Estimat Glomerular Filtration 41 ML/MIN Rate Random Glucose 78 MG/DL Calcium Level 8.5 MG/DL Total Bilirubin 2.5 MG/DL Aspartate Amino Transf 66 U/L (AST/SGOT) Alanine Aminotransferase 30 U/L (ALT/SGPT) Alkaline Phosphatase 334 U/L Total Creatine Kinase 166 U/L Troponin I 0.04 NG/ML B-Type Natriuretic Peptide 817 PG/ML Total Protein 8.5 GM/DL Albumin 2.3 GM/DL Thyroid Stimulating Hormone 4.470 uIU/ML 3rd Gen [facility] Medical Decision Making Medical Screen Exam Complete: Yes Emergency Medical Condition: Yes Interpretation(s) 6:37 AM. Chest x-ray shows clear lung. Cardiac silhouette remains widened. CBC within normal limit. Potassium 5.5. Slight hemolysis noted. BUN 43. Creatinine 2.02. GFR 41. Total bili 2.5. AST 66. Alkaline phosphatase 334. Cardiac enzymes are normal. BNP 817. TSH 4.47. INR 1.3. Differential Diagnosis Differential diagnosis including acute exacerbation CHF, DVT, pleural effusion, pneumonia, PE, pneumothorax. Narrative Course 61-year-old male with lower extremity edema, shortness of breath and chest discomfort. History of CHF and chronic renal disease. Emigdio De Los Santos MD Oct 02, 2016 05:30
[2016-10-02 05:40] LABS: AUTOMATED NEUTROPHIL # 3.1 TH/MM3 (1.8-7.7); BASOPHIL % 0.6 % (0.0-2.0); EOSINOPHIL % 0.8 % (0.0-4.0); HEMATOCRIT 41.4 % (39.0-51.0); HEMO FLAGS DIFF FINAL; LYMPH % 27.3 % (9.0-44.0); LYMPHOCYTE # 1.4 TH/MM3 (1.0-4.8); MEAN CELL VOLUME 80.9 FL (80.0-100.0); MEAN CORPUSCULAR HEMOGLOBIN 26.5 PG (27.0-34.0); MEAN CORPUSCULAR HGB CONC 32.7 % (32.0-36.0); MONO % 9.9 % (0.0-8.0); NEUT % 61.4 % (16.0-70.0); PLATELET COUNT 193 TH/MM3 (150-450); RED BLOOD COUNT 5.11 MIL/MM3 (4.50-5.90); RED CELL DISTRIBUTION WIDTH 21.4 % (11.6-17.2)
[2016-10-02 05:51] LABS: APTT (PATIENT) 26.5 SEC (24.3-30.1); INTERNATIONAL NORMALIZED RATIO 1.3 RATIO; PROTHROMBIN TIME - PATIENT 14.7 SEC (9.8-11.6)
[2016-10-02 06:13] LABS: ALKALINE PHOSPHATASE 334 U/L (45-117); ALT (GPT) 30 U/L (12-78); ANION GAP 7 MEQ/L (5-15); AST (GOT) 66 U/L (15-37); BICARBONATE 28.9 MEQ/L (21.0-32.0); BLOOD UREA NITROGEN 43 MG/DL (7-18); CHLORIDE 99 MEQ/L (98-107); CREATINE KINASE 166 U/L (39-308); GLOMERULAR FILTRATION RATE 41 ML/MIN (>89); SODIUM (NA) 135 MEQ/L (136-145); TOTAL BILIRUBIN ADULT 2.5 MG/DL (0.2-1.0)
[2016-10-02 06:14] LABS: POTASSIUM 5.5 MEQ/L (3.5-5.1)
--- NOTE | 2016-10-02 06:32 | RADRPT ---
EXAM DATE/TIME: 10/02/2016 05:36 [facility] COMPARISON: CHEST SINGLE AP, May 14, 2016, 23:41. INDICATIONS : Chest pain. MEDICAL HISTORY : None. SURGICAL HISTORY : Pacemaker. ENCOUNTER: Initial ACUITY: 1 day PAIN SCORE: 0/10 LOCATION: Bilateral chest FINDINGS: A single view of the chest demonstrates the lungs to be symmetrically aerated without evidence of mas s, infiltrate or effusion. Left subclavian pacer in good position. Cardiac silhouette remains enlarge d. The cardiomediastinal contours are unremarkable. Osseous structures are intact. CONCLUSION: Lungs are mostly clear. Cardiac silhouette remains widened. Robin Ramirez MD on October 02, 2016 at 6:30 Board Certified Radiologist. This report was verified electronically.
--- NOTE | 2016-10-02 09:11 | RADRPT ---
EXAM DATE/TIME: 10/02/2016 07:55 [facility] COMPARISON: US KIDNEY/RENAL/BLADDER, May 16, 2016, 9:51. INDICATIONS : Bilateral feet and ankle swelling. MEDICAL HISTORY : Congestive heart failure. Hypertension. Eye prosthesis. Reading glasses. Transient ischemic attack. Dizziness. Cardiac disorders. Anticoagulant therapy. Chest pain. Irregular heartbeat. Respiratory dis orders. Dyspnea. Gallbladder disease. Kidney stones. Claustrophobia. SURGICAL HISTORY : Pacemaker. Internal Defibrillator. Left elbow surgery. Glass removal from arm. ENCOUNTER: Initial ACUITY: 1 week PAIN SCORE: 2/10 LOCATION: Bilateral legs. TECHNIQUE: Venous ultrasound of the left and right leg was performed from the inguinal ligament to the proximal calf. Real-time, color Doppler and spectral tracing, compression and augmentation techniques were us ed. FINDINGS: RIGHT LEG: There is normal compressibility of the deep venous system from the inguinal region to the proximal ca lf. No echogenic clot is seen in the lumen of the common femoral, femoral, popliteal, and posterior tibial veins. There is a normal response of the venous system to proximal and distal augmentation an d respiration. LEFT LEG: There is normal compressibility of the deep venous system from the inguinal region to the proximal ca lf. No echogenic clot is seen in the lumen of the common femoral, femoral, popliteal, and posterior tibial veins. There is a normal response of the venous system to proximal and distal augmentation an d respiration. CONCLUSION: 1. No DVT identified. 2. There are edematous changes within the subcutaneous soft tissues bilaterally. Carmine Jernigan MD on October 02, 2016 at 9:09 Board Certified Radiologist. This report was verified electronically.
--- NOTE | 2016-10-02 10:48 | PD ---
Physical Exam Date Seen by Provider: Oct 02, 2016 Time Seen by Provider: 10:45 Narrative 61-year-old male came to the emergency room with history of bilateral pedal edema and shortness of breath upon exertion. This is slowly progressing over past few weeks. Patient has been admitted in recent past for congestive heart failure. He was seen by the previous ER physician and the case was signed out to me. Please refer to his history and physical for further details. Sign out was to follow-up on the ultrasound of his legs which was done to rule out DVT. Blood test was suggestive off renal insufficiency and congestive heart failure. Patient also had slightly elevated potassium level. Ultrasound came back negative for DVT. I discussed with the patient and his and realized that the patient's Bumex dose was doubled recently. In spite of that he has worsened with his congestive heart failure and now his kidneys are under stress as well with the evident renal insufficiency. I tried to put out a page to his unhairing inspector Dr. Styles to discuss this with him. However have not heard back from him yet. At this point I decided to admit him since patient obviously is failing outpatient treatment. Given the fact that he is in persistent congestive heart failure and at the same time worsening renal function he would benefit from inpatient treatment. I discussed this with his primary care who is in agreement. I also emphasized that patient should get a spudder consult it and referred to outpatient when he is discharged this time. Patient and is in agreement with this plan as well. Data Data Last Documented VS Vital Signs Date Time Temp Pulse Resp B/P Pulse Ox O2 Delivery O2 Flow Rate FiO2 10/02/16 07:39 58 15 89/66 97 Room Air 10/02/16 05:03 98.2 Orders Electrocardiogram (10/02/16 05:19) Complete Blood Count With Diff (10/02/16 05:19) Comprehensive Metabolic Panel (10/02/16 05:19) Creatine Kinase (Cpk) (10/02/16 05:19) Troponin I (10/02/16 05:19) B-Type Natriuretic Peptide (10/02/16 05:19) Prothrombin Time / Inr (Pt) (10/02/16 05:19) Act Partial Throm Time (Ptt) (10/02/16 05:19) Urinalysis - C+S If Indicated (10/02/16 05:19) Thyroid Stimulating Hormone (10/02/16 05:19) Chest, Single Ap (10/02/16 05:19) Iv Access Insert/Monitor (10/02/16 05:19) Ecg Monitoring (10/02/16 05:19) Oximetry (10/02/16 05:19) Us Leg Venous Doppler Bilat (10/02/16 05:19) Admit Order (Ed Use Only) (10/02/16 10:41) Labs Laboratory Tests Test 10/02/16 05:15 White Blood Count 5.0 TH/MM3 Red Blood Count 5.11 MIL/MM3 Hemoglobin 13.6 GM/DL Hematocrit 41.4 % Mean Corpuscular Volume 80.9 FL Mean Corpuscular Hemoglobin 26.5 PG Mean Corpuscular Hemoglobin 32.7 % Concent Red Cell Distribution Width 21.4 % Platelet Count 193 TH/MM3 Mean Platelet Volume 10.1 FL Neutrophils (%) (Auto) 61.4 % Lymphocytes (%) (Auto) 27.3 % Monocytes (%) (Auto) 9.9 % Eosinophils (%) (Auto) 0.8 % Basophils (%) (Auto) 0.6 % Neutrophils # (Auto) 3.1 TH/MM3 Lymphocytes # (Auto) 1.4 TH/MM3 Monocytes # (Auto) 0.5 TH/MM3 Eosinophils # (Auto) 0.0 TH/MM3 Basophils # (Auto) 0.0 TH/MM3 CBC Comment DIFF FINAL Differential Comment Prothrombin Time 14.7 SEC Prothromb Time International 1.3 RATIO Ratio Activated Partial 26.5 SEC Thromboplast Time Sodium Level 135 MEQ/L Potassium Level 5.5 MEQ/L Chloride Level 99 MEQ/L Carbon Dioxide Level 28.9 MEQ/L Anion Gap 7 MEQ/L Blood Urea Nitrogen 43 MG/DL Creatinine 2.02 MG/DL Estimat Glomerular Filtration 41 ML/MIN Rate Random Glucose 78 MG/DL Calcium Level 8.5 MG/DL Total Bilirubin 2.5 MG/DL Aspartate Amino Transf 66 U/L (AST/SGOT) Alanine Aminotransferase 30 U/L (ALT/SGPT) Alkaline Phosphatase 334 U/L Total Creatine Kinase 166 U/L Troponin I 0.04 NG/ML B-Type Natriuretic Peptide 817 PG/ML Total Protein 8.5 GM/DL Albumin 2.3 GM/DL Free Thyroxine 1.89 NG/DL Thyroid Stimulating Hormone 4.470 uIU/ML 3rd Gen Digoxin Level 1.4 NG/ML MDM Supervised Visit with GAUTAM: No Physician Communication Physician Communication Dr. Styles Diagnosis Primary Impression: CHF (congestive heart failure) Qualified Code: I50.9 - Congestive heart failure, unspecified congestive heart failure chronicity, unspecified congestive heart failure type Additional Impressions: Renal insufficiency Failure of outpatient treatment Admitting Information Admitting Physician Requests: it Haider Rossi MD Oct 02, 2016 10:48
--- NOTE | 2016-10-02 11:09 | HHI.HP ---
History of Present Illness Primary Care Physician Tao Lopez MD Admission Diagnosis congestive heart failure, renal insufficiency, outpatient treatment Diagnoses: (1) Chest pain, rule out acute myocardial infarction (2) Acute renal failure (3) CKD (chronic kidney disease) stage 3, GFR 30-59 ml/min (4) Renal insufficiency (5) Failure of outpatient treatment (6) CHF (congestive heart failure) (7) Elevated troponin I level History of Present Illness 61 Y AAM. INCREASING SOB AND CHF SYMPTOMS PROGRESSIVELY OVER THE PAST FEW YEARS. PT IN MY OFFICE ROUTINELY AND WE HAVE BEEN MONITORING HIS CHF. PT W GENERAL DECLINE OVER THE LAST FEW MONTHS AND PRESENTED WITH HIS TODAY WITH INCR SOB AND EDEMA. I WAS CALLED BY THE ER MD FOR ADMIT. DR SOLIZ CONSULTED. PT C/O INCR XIONG AND UNABLE TO FUNCTION AT HOME. LABS WORSENED, INCR RI. PT C/O DIZZINESS W SITTING UP AND WEAKNESS INCREASE. Review of Systems Constitutional: COMPLAINS OF: Fatigue, Weight gain, Change in appetite Respiratory: COMPLAINS OF: Cough, Shortness of breath Cardiovascular: COMPLAINS OF: Chest pain Musculoskeletal: COMPLAINS OF: Joint pain, Muscle aches, Stiffness, Joint Swelling, Back pain Psychiatric: COMPLAINS OF: Mood changes, Depression Past Family Social History Allergies: Coded Allergies: No Known Allergies (Verified , 10/02/16) Past Medical History chf htn RI Past Surgical History PACER Family History NC Social History NO E/T/D Physical Exam Vital Signs Vital Signs Date Time Temp Pulse Resp B/P Pulse Ox O2 Delivery O2 Flow Rate FiO2 10/02/16 07:39 58 15 89/66 97 Room Air 10/02/16 06:00 68 20 106/69 93 Room Air 10/02/16 05:33 20 97 Room Air 10/02/16 05:15 20 97 Room Air 10/02/16 05:03 98.2 66 22 93/68 97 10/02/16 04:59 97.7 32 18 99/80 Room Air Physical Exam GENERAL: This is frail, cachectic, SOB with talking SKIN: No rashes, ecchymoses or lesions. Cool and dry. HEAD: Atraumatic. Normocephalic. No temporal or scalp tenderness. EYES: Pupils equal round and reactive. Extraocular motions intact. No scleral icterus. No injection or drainage. ENT: Nose without bleeding, purulent drainage or septal hematoma. Throat without erythema, tonsillar hypertrophy or exudate. Uvula midline. Airway patent. NECK: Trachea midline. No JVD or lymphadenopathy. Supple, nontender, no meningeal signs. CARDIOVASCULAR: Regular rate and rhythm without murmurs, gallops, or rubs. RESPIRATORY: Clear to auscultation. Breath sounds equal bilaterally. No wheezes , rales, or rhonchi. GASTROINTESTINAL: Abdomen soft, non-tender, nondistended. No hepato-splenomegaly , or palpable masses. No guarding. MUSCULOSKELETAL: Extremities without clubbing, cyanosis, three plus edema. No joint tenderness, effusion, No calf tenderness. Negative Homans sign bilaterally. NEUROLOGICAL: Awake and alert. Cranial nerves II through XII intact. Motor and sensory grossly within normal limits. 2 out of 5 muscle strength in all muscle groups. Normal speech. Laboratory Laboratory Tests Test 10/02/16 05:15 White Blood Count 5.0 Red Blood Count 5.11 Hemoglobin 13.6 Hematocrit 41.4 Mean Corpuscular Volume 80.9 Mean Corpuscular Hemoglobin 26.5 Mean Corpuscular Hemoglobin 32.7 Concent Red Cell Distribution Width 21.4 Platelet Count 193 Mean Platelet Volume 10.1 Neutrophils (%) (Auto) 61.4 Lymphocytes (%) (Auto) 27.3 Monocytes (%) (Auto) 9.9 Eosinophils (%) (Auto) 0.8 Basophils (%) (Auto) 0.6 Neutrophils # (Auto) 3.1 Lymphocytes # (Auto) 1.4 Monocytes # (Auto) 0.5 Eosinophils # (Auto) 0.0 Basophils # (Auto) 0.0 CBC Comment DIFF FINAL Differential Comment Prothrombin Time 14.7 Prothromb Time International 1.3 Ratio Activated Partial 26.5 Thromboplast Time Sodium Level 135 Potassium Level 5.5 Chloride Level 99 Carbon Dioxide Level 28.9 Anion Gap 7 Blood Urea Nitrogen 43 Creatinine 2.02 Estimat Glomerular Filtration 41 Rate Random Glucose 78 Calcium Level 8.5 Total Bilirubin 2.5 Aspartate Amino Transf 66 (AST/SGOT) Alanine Aminotransferase 30 (ALT/SGPT) Alkaline Phosphatase 334 Total Creatine Kinase 166 Troponin I 0.04 B-Type Natriuretic Peptide 817 Total Protein 8.5 Albumin 2.3 Thyroid Stimulating Hormone 4.470 3rd Gen Result Diagram: 10/02/1615 10/02/1615 Assessment and Plan Problem List: (1) CHF (congestive heart failure) Status: Acute (2) Failure of outpatient treatment Status: Acute (3) Chest pain, rule out acute myocardial infarction Status: Acute (4) Acute renal failure Status: Acute (5) CKD (chronic kidney disease) stage 3, GFR 30-59 ml/min Status: Acute (6) Renal insufficiency Status: Acute Assessment and Plan PLAN: HOLD SPIRONOLACTONE D/T HYPERKALEMIA DX HOLD LOSARTAN CHECK DIGOXIN LEVEL HOLD FURTHER DIURESIS FOR NOW D/T MICHELLE TELE NEPHRO CONSULT CARDIO CONSULT PT HEPARIN 5000 BID FOR PROPHYLAXIS SCD'S/TEDS AM LABS OBS ADMIT. Problem Qualifiers (1) CHF (congestive heart failure): Qualified Code: I50.9 - Congestive heart failure, unspecified congestive heart failure chronicity, unspecified congestive heart failure type Tao Lopez MD Oct 02, 2016 11:09
[2016-10-02] MEDS ORDERED: NALOXONE HCL 0.4 MG/ML AMP IV PRN (11:30)
[2016-10-02] MEDS ORDERED: LACTULOSE SYRUP 20 GM/30 ML CUP PO PRN (11:30)
[2016-10-02] MEDS ORDERED: BISACODYL 10 MG SUPP RECTAL PRN (11:30)
[2016-10-02] MEDS ORDERED: ONDANSETRON HCL 4 MG/2 ML VIAL IVP PRN (11:30)
[2016-10-02] MEDS ORDERED: ACETAMINOPHEN 325 MG TAB PO PRN (11:30)
[2016-10-02] MEDS ORDERED: SODIUM CHLORIDE 0.9% FLUSH 10 ML FLUSH IV FLUSH PRN (11:30)
[2016-10-02] MEDS ORDERED: SENNOSIDES 8.6 MG TAB PO PRN (11:30)
[2016-10-02] MEDS ORDERED: ZOLPIDEM TARTRATE 5 MG TAB PO PRN (11:30)
[2016-10-02] MEDS ORDERED: MAGNESIUM HYDROXIDE SUSP 30 ML CUP PO PRN (11:30)
[2016-10-02] MEDS: DOCUSATE SODIUM 50 MG/SENNA 8.6 MG TAB PO SCH ×2 (12:00→20:53)
[2016-10-02] MEDS ORDERED: traMADol HCL 50 MG TAB PO PRN (12:00)
[2016-10-02] MEDS: HEPARIN SODIUM - SQ 10,000 UNITS/ML VIAL SQ SCH ×2 (12:00→23:42)
--- NOTE | 2016-10-02 12:02 | PD.CONS ---
HPI Service Nephrology Consult Requested By Reason for Consult Acute on CKD Primary Care Physician Tao Lopez MD History of Present Illness This is a very pleasant AAM patient. He came to ER for lower extremity edema and reports decreased urine output with weight gain of 5 pounds over past 3 weeks. We were consulted for renal management. His creatinine measures 2.02 today, K 5.5. Looking through his record, it appears he has CKD. In April of 2016 his best creatinine was 1.59 with GFR 54, consistent with CKD stage 2. In 2014 his creatinine was normal. PMH of HTN and CHF, with EF 15%, has AICD in place. Today he is not in distress. Blood pressure is borderline low since arrival. He admits to taking PRN NSAIDs. He is a full code. (Lis Crane) Review of Systems Constitutional: COMPLAINS OF: Fatigue, Weight gain, DENIES: Change in appetite , Night Sweats Respiratory: COMPLAINS OF: Shortness of breath Cardiovascular: COMPLAINS OF: Dyspnea on Exertion, Lower Extremity Edema, DENIES: Chest pain Gastrointestinal: DENIES: Abdominal pain (Lis Crane) Past Family Social History Allergies: Coded Allergies: No Known Allergies (Verified , 10/02/16) Past Medical History CKD 3, Creatinine 1.59, GFR 54 HTN CHF, EF 15% Past Surgical History AICD Reported Medications Zofran (Ondansetron HCl) 4 Mg Tab 4 Mg PO Q6HR PRN Tramadol (Tramadol HCl) 50 Mg Tab 50 Mg PO Q4H PRN Potassium Chloride ER (Potassium Chloride) 10 Meq Cap 10 Meq PO DAILY Spironolactone 25 Mg Tab 25 Mg PO DAILY Losartan (Losartan Potassium) 25 Mg Tab 25 Mg PO DAILY Digoxin 0.25 Mg Tab 0.25 Mg PO DAILY Carvedilol 3.125 Mg Tab 3.125 Mg PO BID Aspirin 81 Mg Chew 81 Mg CHEW DAILY Active Ordered Medications Current Medications Medications (Trade) Dose Ordered Sig/Levi Route Start Time Stop Time Status Last Admin (Aspirin Chew) 81 mg DAILY CHEW 10/03/16 09:00 (Coreg) 3.125 mg BID PO 10/02/16 21:00 (Lanoxin) 0.25 mg DAILY PO 10/03/16 09:00 (Ultram) 50 mg Q4H PRN PO 10/02/16 12:00 (NS Flush) 2 ml UNSCH PRN IV FLUSH 10/02/16 11:30 (NS Flush) 2 ml BID IV FLUSH 10/02/16 21:00 (Tylenol) 650 mg Q4H PRN PO 10/02/16 11:30 (Zofran Inj) 4 mg Q6H PRN IVP 10/02/16 11:30 (Ambien) 5 mg HS PRN PO 10/02/16 11:30 (Heparin Inj) 5,000 units Q12H SQ 10/02/16 12:00 (Narcan Inj) 0.4 mg UNSCH PRN IV 10/02/16 11:30 (Maria G-Colace) 1 tab BID PO 10/02/16 12:00 (Milk Of Magnesia Liq) 30 ml Q12H PRN PO 10/02/16 11:30 (Senokot) 17.2 mg Q12H PRN PO 10/02/16 11:30 (Dulcolax Supp) 10 mg DAILY PRN RECTAL 10/02/16 11:30 (Lactulose Liq) 30 ml DAILY PRN PO 10/02/16 11:30 Family History no hx of renal disorders Social History non smoker denies ETOH , 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 (Lis Crane) Physical Exam Vital Signs Vital Signs Date Time Temp Pulse Resp B/P Pulse Ox O2 Delivery O2 Flow Rate FiO2 10/02/16 07:39 58 15 89/66 97 Room Air 10/02/16 06:00 68 20 106/69 93 Room Air 10/02/16 05:33 20 97 Room Air 10/02/16 05:15 20 97 Room Air 10/02/16 05:03 98.2 66 22 93/68 97 10/02/16 04:59 97.7 32 18 99/80 Room Air Physical Exam Middle aged AAM, awake/alert not in distress S1/S2, regular rate, no murmurs; AICD left chest lungs clear abdomen soft, non tender Ext 2-3+ pitting Laboratory Laboratory Tests Test 10/02/16 05:15 White Blood Count 5.0 Red Blood Count 5.11 Hemoglobin 13.6 Hematocrit 41.4 Mean Corpuscular Volume 80.9 Mean Corpuscular Hemoglobin 26.5 Mean Corpuscular Hemoglobin 32.7 Concent Red Cell Distribution Width 21.4 Platelet Count 193 Mean Platelet Volume 10.1 Neutrophils (%) (Auto) 61.4 Lymphocytes (%) (Auto) 27.3 Monocytes (%) (Auto) 9.9 Eosinophils (%) (Auto) 0.8 Basophils (%) (Auto) 0.6 Neutrophils # (Auto) 3.1 Lymphocytes # (Auto) 1.4 Monocytes # (Auto) 0.5 Eosinophils # (Auto) 0.0 Basophils # (Auto) 0.0 CBC Comment DIFF FINAL Differential Comment Prothrombin Time 14.7 Prothromb Time International 1.3 Ratio Activated Partial 26.5 Thromboplast Time Sodium Level 135 Potassium Level 5.5 Chloride Level 99 Carbon Dioxide Level 28.9 Anion Gap 7 Blood Urea Nitrogen 43 Creatinine 2.02 Estimat Glomerular Filtration 41 Rate Random Glucose 78 Calcium Level 8.5 Total Bilirubin 2.5 Aspartate Amino Transf 66 (AST/SGOT) Alanine Aminotransferase 30 (ALT/SGPT) Alkaline Phosphatase 334 Total Creatine Kinase 166 Troponin I 0.04 B-Type Natriuretic Peptide 817 Total Protein 8.5 Albumin 2.3 Thyroid Stimulating Hormone 4.470 3rd Gen (Lis Crane) Result Diagram: 10/02/1651410/02/16514 Imaging Last Impressions Lower Extremity Ultrasound 10/02/16518 Signed Impressions: Service Date/Time: Sunday, October 02, 2016 07:55 - CONCLUSION: 1. No DVT identified. 2. There are edematous changes within the subcutaneous soft tissues bilaterally. Carmine Jernigan MD Chest X-Ray 10/02/16518 Signed Impressions: Service Date/Time: Sunday, October 02, 2016 05:36 - CONCLUSION: Lungs are mostly clear. Cardiac silhouette remains widened. Robin Ramirez MD (Lis Crane) Assessment and Plan Problem List: (1) Acute renal failure Plan: Acute on CKD 3 MICHELLE may be due to CHF exacerbation, also relative hypotension causing decreased renal perfusion cardiorenal syndrome will have to be considered K 5.5, at this time I would stop Spironolactone begin Bumex 40 IV BID, monitor effect obtain UA for analysis avoid IVF, nephrotoxic medications. daily renal panel (2) CHF (congestive heart failure) Plan: EF 15%, continue diuresis, follow weights, I/Os,. fluid status oral restriction discussed he is on coreg (3) Hypertension Plan: borderline hypotensive monitor BP with addition of lasix. He is on coreg continue with hold parameters (Lis Crane) Problem List: (1) Acute renal failure Plan: Acute on CKD 3 MICHELLE may be due to CHF exacerbation, also relative hypotension causing decreased renal perfusion cardiorenal syndrome will have to be considered K 5.5, at this time I would stop Spironolactone begin Lasix 40 IV BID, monitor effect obtain UA for analysis avoid IVF, nephrotoxic medications. daily renal panel (2) CHF (congestive heart failure) Plan: EF 15%, continue diuresis, follow weights, I/Os,. fluid status oral restriction discussed he is on coreg (3) Hypertension Plan: borderline hypotensive monitor BP with addition of lasix. He is on coreg continue with hold parameters Assessment and Plan patient was seen and examined. Acute on CKD could be due to increased renal vein pressure resulting from CHF decompensation. Continue diuretics. Prognosis is guarded. Hold Spironolactone for the time being due to hyperkalemia. ( Jim Mccoy MD) Problem Qualifiers (1) CHF (congestive heart failure): Qualified Code: I50.9 - Congestive heart failure, unspecified congestive heart failure chronicity, unspecified congestive heart failure type Lis Crane Oct 02, 2016 12:01 Jim Mccoy MD Oct 02, 2016 13:11
--- NOTE | 2016-10-02 14:26 | EKG ---
Date Performed: 10/02/2016 Time Performed: 05:07:54 PTAGE: 61 years EKG: Sinus rhythm WITH FREQUENT VENTRICULAR PREMATURE COMPLEXES POSSIBLE LEFT ATRIAL ENLARGEMENT MARKED RIGHT AXIS DEV IATION POSSIBLE ANTERIOR MYOCARDIAL INFARCTION Compared to prior tracing the axis has shifted slightl y, otherwise no major change ABNORMAL ECG PREVIOUS TRACING : 05/14/2016 22.41 DOCTOR: Pedro Sanchez Interpretating Date/Time 10/02/2016 14:25:37
[2016-10-02] MEDS: FUROSEMIDE 40 MG/4 ML VIAL IV PUSH SCH (18:37)
[2016-10-02] MEDS: SODIUM CHLORIDE 0.9% FLUSH 10 ML FLUSH IV FLUSH SCH (20:53)
[2016-10-02] MEDS: CARVEDILOL 3.125 MG TAB PO SCH (21:00)
[2016-10-03] VITALS (10 sets, daily range): BP systolic 98–130; BP diastolic 59–85; PULSE 32–70; RESP 16–20; TEMP 95.9–98.8; O2SAT 90–97
[2016-10-03 05:50] LABS: BICARBONATE 29.2 MEQ/L (21.0-32.0)
--- NOTE | 2016-10-03 08:17 | MB ---
cc: CHACE STYLES MD Corrected: 10/16/2016 DATE OF CONSULTATION 10/02/16 HISTORY OF PRESENT ILLNESS Mr. Mann is a 61-year-old black male known to my practice with history of nonischemic cardiomyopathy and chronic systolic congestive heart failure with an ejection fraction of 15%. He has had increased edema and also mildly increased shortness of breath over the last week. He denies any chest discomfort. He has had several admissions for CHF exacerbation over the last several months. PAST MEDICAL HISTORY Positive for congestive heart failure, chronic systolic nonischemic cardiomyopathy with severe LV dysfunction, Medtronic dual chamber defibrillator placement in 08/2011. Cardiac catheterization on 09/08/2011 showing patent coronary arteries and severe left ventricular systolic dysfunction. History of left elbow surgery. MEDICATIONS At home included: 1. Aspirin. 2. Bumex. 3. Digoxin. 4. Spironolactone. 5. Carvedilol. 6. Losartan. 7. Klor-Con. 8. Zofran. 9. Pantoprazole. ALLERGIES None. SOCIAL HISTORY The patient does not smoke. He does not drink alcohol. FAMILY HISTORY Negative for heart disease. REVIEW OF SYSTEMS The review of systems is otherwise negative. PHYSICAL EXAMINATION VITAL SIGNS: Blood pressure 100/60, pulse 57. HEENT: Negative. 2+ carotid upstrokes. No bruits. LUNGS: Clear. HEART: Regular with no murmur or gallop. ABDOMEN: Soft. No bruits. EXTREMITIES: 2 to 3+ pitting pretibial edema. 1+ distal pulses. NEUROLOGIC: Grossly nonfocal. CHEST: There is intact ICD site in the left upper chest. CARDIOLOGY STUDIES EKG was reviewed and showed sinus rhythm, left atrial enlargement, indeterminate axis, delayed R-wave progression of precordial leads, PVCs. LABORATORY DATA Hemoglobin 13.6, potassium 5.5, creatinine 2.0, AST 66, ALT 30. Troponin 0.04. BNP 817. TSH 4.47. DIAGNOSIS 1. Acute exacerbation of chronic systolic congestive heart failure. 2. Nonischemic cardiomyopathy with very severe left ventricular systolic dysfunction. 3. Acute exacerbation of chronic kidney disease. 4. History of Medtronic dual chamber defibrillator placement. DISPOSITION Mr. Mann will be monitored on telemetry. We will hold spironolactone and losartan due to his hyperkalemia, and start IV Lasix as recommended by nephrology closely monitoring renal function and potassium. We will continue therapy for congestive heart failure including Coreg. We will restart ARB again before discharge once hyperkalemia is corrected. I will follow him for cardiology during his hospitalization. I will refer him for the consideration of cardiac transplant once his current condition is stabilized. Chace Styles MD OAmanda/NETTE /3:59 PM /8:11 AM MTDGómez
[2016-10-03] MEDS: FUROSEMIDE 40 MG/4 ML VIAL IV PUSH SCH ×2 (08:54→17:50)
[2016-10-03] MEDS: DIGOXIN 0.25 MG TAB PO SCH (08:54)
[2016-10-03] MEDS: ASPIRIN 81 MG CHEW TAB CHEW SCH (08:54)
[2016-10-03] MEDS: CARVEDILOL 3.125 MG TAB PO SCH ×2 (08:54→21:06)
[2016-10-03] MEDS: DOCUSATE SODIUM 50 MG/SENNA 8.6 MG TAB PO SCH ×2 (08:55→21:00)
[2016-10-03] MEDS: SODIUM CHLORIDE 0.9% FLUSH 10 ML FLUSH IV FLUSH SCH ×2 (08:55→21:06)
[2016-10-03] MEDS ORDERED: PNEUMOCOCCAL POLYVALENT INJ 25 MCG/0.5 ML SYR IM ONE (09:00)
--- NOTE | 2016-10-03 10:53 | HHI.FPPN ---
Subjective Remarks UNABLE TO LAY FLAT LETHARGIC SITTING UP D/W INSPECTOR RAW QUARTZ REVIEWED LABS REVIEWED CONSULTANTS REPORTS REVIEWED Objective Vitals Vital Signs Date Time Temp Pulse Resp B/P Pulse Ox O2 Delivery O2 Flow Rate FiO2 10/03/16 08:52 62 110/80 10/03/16 08:27 97.3 57 18 98/64 95 10/03/16 05:01 97 21 10/03/16 04:16 98.8 63 16 130/77 90 10/03/16 00:50 97.8 66 18 107/85 97 10/03/16 00:36 65 10/02/16 20:00 95.4 60 20 114/87 97 10/02/16 18:50 69 10/02/16 15:09 57 16 100/60 98 10/02/16 12:12 97 21 I/O 10/02/16 10/02/16 10/02/16 10/03/16 10/03/16 10/03/16 07:00 15:00 23:00 07:00 15:00 23:00 Output Total 1000 ml Balance -1000 ml Output Urine Total 1000 ml # Voids 2 1 Result Diagram: 10/02/16 0515 10/03/16 0421 Objective Remarks GENERAL: SKIN: Warm and dry. HEAD: Atraumatic. Normocephalic. EYES: Pupils equal and round. No scleral icterus. No injection or drainage. ENT: No nasal bleeding or discharge. Mucous membranes pink and moist. NECK: Trachea midline. No JVD. CARDIOVASCULAR: Regular rate and rhythm. RESPIRATORY: B R/R GASTROINTESTINAL: Abdomen soft, non-tender, nondistended. Hepatic and splenic margins not palpable. MUSCULOSKELETAL: Extremities without clubbing, cyanosis. 3 edema. No obvious deformities. NEUROLOGICAL: Awake and alert. No obvious cranial nerve deficits. Motor grossly within normal limits. Five out of 5 muscle strength in the arms and legs. Normal speech. PSYCHIATRIC: Appropriate mood and affect; insight and judgment normal. Medications and IVs Current Medications Medications (Trade) Dose Ordered Sig/Levi Route Start Time Stop Time Status Last Admin (Aspirin Chew) 81 mg DAILY CHEW 10/03/16 09:00 10/03/16 08:54 (Coreg) 3.125 mg BID PO 10/02/16 21:00 10/03/16 08:54 (Lanoxin) 0.25 mg DAILY PO 10/03/16 09:00 10/03/16 08:54 (Ultram) 50 mg Q4H PRN PO 10/02/16 12:00 (NS Flush) 2 ml UNSCH PRN IV FLUSH 10/02/16 11:30 (NS Flush) 2 ml BID IV FLUSH 10/02/16 21:00 10/03/16 08:55 (Tylenol) 650 mg Q4H PRN PO 10/02/16 11:30 (Zofran Inj) 4 mg Q6H PRN IVP 10/02/16 11:30 (Ambien) 5 mg HS PRN PO 10/02/16 11:30 (Heparin Inj) 5,000 units Q12H SQ 10/02/16 12:00 10/02/16 23:42 (Narcan Inj) 0.4 mg UNSCH PRN IV 10/02/16 11:30 (Maria G-Colace) 1 tab BID PO 10/02/16 12:00 10/02/16 20:53 (Milk Of Magnesia Liq) 30 ml Q12H PRN PO 10/02/16 11:30 (Senokot) 17.2 mg Q12H PRN PO 10/02/16 11:30 (Dulcolax Supp) 10 mg DAILY PRN RECTAL 10/02/16 11:30 (Lactulose Liq) 30 ml DAILY PRN PO 10/02/16 11:30 (Lasix Inj) 40 mg BID@09,18 IV PUSH 10/02/16 18:00 10/03/16 08:54 A/P Problem List: (1) CHF (congestive heart failure) Status: Acute (2) Acute renal failure Status: Acute (3) Renal insufficiency Status: Acute (4) CKD (chronic kidney disease) stage 3, GFR 30-59 ml/min Status: Acute (5) Failure of outpatient treatment Status: Acute (6) Hypertension Status: Acute Plan: PLAN: IV LASIX HOLD SPIRONOLACTONE D/T HYPERKALEMIA DX HOLD LOSARTAN CHECK DIGOXIN LEVEL TELE NEPHRO CONSULT CARDIO CONSULT PT HEPARIN 5000 BID FOR PROPHYLAXIS SCD'S/TEDS AM LABS, MONITOR CARDIORENAL SYNDROME SEE ORDERS PLEASE. OBS ADMIT. Problem Qualifiers (1) CHF (congestive heart failure): Qualified Code: I50.9 - Congestive heart failure, unspecified congestive heart failure chronicity, unspecified congestive heart failure type Tao Lopez MD Oct 03, 2016 10:53
[2016-10-03] MEDS: HEPARIN SODIUM - SQ 10,000 UNITS/ML VIAL SQ SCH ×2 (12:13→21:13)
--- NOTE | 2016-10-03 12:21 | HHI.NPPN ---
Subjective General Problems: Edema, Heart Disease Renal Failure: Chronic, Acute Interval History Sitting up in chair. Doing well. Edema and renal function are better. (Lis Crane) Review of Systems Respiratory Lungs: SOB (Lis Crane) Cardiovascular Cardiac: Edema (Lis Crane) Objective Data Data 10/02/16 10/03/16 19:00 07:00 Output Total 1000 ml Balance -1000 ml Output Urine Total 1000 ml # Voids 3 Vital Signs Date Time Temp Pulse Resp B/P Pulse Ox O2 Delivery O2 Flow Rate FiO2 10/03/16 11:42 97.5 65 20 116/81 95 10/03/16 08:52 62 110/80 10/03/16 08:27 97.3 57 18 98/64 95 10/03/16 08:00 69 10/03/16 05:01 97 21 10/03/16 04:16 98.8 63 16 130/77 90 10/03/16 00:50 97.8 66 18 107/85 97 10/03/16 00:36 65 10/02/16 20:00 95.4 60 20 114/87 97 10/02/16 18:50 69 10/02/16 15:09 57 16 100/60 98 (Lis Crane) -: 10/02/16 0515 10/03/16 0421 Imaging Last 72 hours Impressions Lower Extremity Ultrasound 10/02/16 05 Signed Impressions: Service Date/Time: Sunday, October 02, 2016 07:55 - CONCLUSION: 1. No DVT identified. 2. There are edematous changes within the subcutaneous soft tissues bilaterally. Carmine Jernigan MD Chest X-Ray 10/02/16 05 Signed Impressions: Service Date/Time: Sunday, October 02, 2016 05:36 - CONCLUSION: Lungs are mostly clear. Cardiac silhouette remains widened. Robin Ramirez MD (Lis Crane) Physical Exam General Appearance: Well Developed, Well Nourished, No Acute Distress (Lis Crane) Neck Neck Exam: Neck Supple (Lis Crane) Pulmonary Resp Exam: Clear Bilaterally, Breath Sounds Equal (Lis Crane) Cardiology CV Exam: Regular, Normal Sinus Rhythm CV Remarks AICD left chest (Lis Crane) Gastrointestinal/Abdomen GI Exam: Soft, Non-Tender (Lis Crane) Musculoskeletal MS Exam: Joints Intact, Normal Gait (Lis Crane) Integumentary Skin Exam: Clear, Warm (Lis Crane) Extremeties Extremities Exam: Pedal Pulses Palpable, Moderate Edema (Lis Crane) Neurologic Neuro Exam: Alert, Awake, Oriented, Speech Clear, Moving All Extremities ( Lis Crane) Psychiatric Psych Exam: Appropriate Responses (Lis Crane) Assessment/Plan Discussed Condition With: Patient Assessment Summary: MICHELLE/Acute Renal Failure, Anemia of CKD, Hypertension, CKD Stage III Problem List: (1) Acute renal failure Plan: Acute on CKD 3 MICHELLE from CHF exacerbation, renal function is better and back to baseline K is now normal continue Lasix 40 , now on PO dosage No UA available avoid IVF, nephrotoxic medications. he is stable and cleared for discharge from nephrology perspective (2) CHF (congestive heart failure) Plan: EF 15%, has AICD continue diuresis, follow weights, I/Os,. fluid status oral restriction discussed he is on coreg to follow with cardiology after discharge (3) Hypertension Plan: BP better. He is on PO lasix and coreg continue with hold parameters (Lis Crane) Plan patient is sitting on a chair. His renal function is at baseline. He can be discharged from renal standpoint. (Jim Mccoy MD) Problem Qualifiers (1) CHF (congestive heart failure): Qualified Code: I50.9 - Congestive heart failure, unspecified congestive heart failure chronicity, unspecified congestive heart failure type Lis Crane Oct 03, 2016 12:21 Jim Mccoy MD Oct 03, 2016 15:20
--- NOTE | 2016-10-03 14:15 | PD.CARD.PN ---
Subjective Subjective Remarks SOB improved, still w mild edema, no CP Objective Medications Current Medications Medications (Trade) Dose Ordered Sig/Levi Route Start Time Stop Time Status Last Admin (Aspirin Chew) 81 mg DAILY CHEW 10/03/16 09:00 10/03/16 08:54 (Coreg) 3.125 mg BID PO 10/02/16 21:00 10/03/16 08:54 (Lanoxin) 0.25 mg DAILY PO 10/03/16 09:00 10/03/16 08:54 (Ultram) 50 mg Q4H PRN PO 10/02/16 12:00 (NS Flush) 2 ml UNSCH PRN IV FLUSH 10/02/16 11:30 (NS Flush) 2 ml BID IV FLUSH 10/02/16 21:00 10/03/16 08:55 (Tylenol) 650 mg Q4H PRN PO 10/02/16 11:30 (Zofran Inj) 4 mg Q6H PRN IVP 10/02/16 11:30 (Ambien) 5 mg HS PRN PO 10/02/16 11:30 (Heparin Inj) 5,000 units Q12H SQ 10/02/16 12:00 10/02/16 23:42 (Narcan Inj) 0.4 mg UNSCH PRN IV 10/02/16 11:30 (Maria G-Colace) 1 tab BID PO 10/02/16 12:00 10/02/16 20:53 (Milk Of Magnesia Liq) 30 ml Q12H PRN PO 10/02/16 11:30 (Senokot) 17.2 mg Q12H PRN PO 10/02/16 11:30 (Dulcolax Supp) 10 mg DAILY PRN RECTAL 10/02/16 11:30 (Lactulose Liq) 30 ml DAILY PRN PO 10/02/16 11:30 (Lasix Inj) 40 mg BID@,18 IV PUSH 10/02/16 18:00 10/03/16 08:54 Vital Signs / I&O Vital Signs Date Time Temp Pulse Resp B/P Pulse Ox O2 Delivery O2 Flow Rate FiO2 10/03/16 11:42 97.5 65 20 116/81 95 10/03/16 08:52 62 110/80 10/03/16 08:27 97.3 57 18 98/64 95 10/03/16 08:00 69 10/03/16 05:01 97 21 10/03/16 04:16 98.8 63 16 130/77 90 10/03/16 00:50 97.8 66 18 107/85 97 10/03/16 00:36 65 10/02/16 20:00 95.4 60 20 114/87 97 10/02/16 18:50 69 10/02/16 15:09 57 16 100/60 98 I/O 10/02/16 10/02/16 10/02/16 10/03/16 10/03/16 10/03/16 07:00 15:00 23:00 07:00 15:00 23:00 Output Total 1000 ml Balance -1000 ml Output Urine Total 1000 ml # Voids 2 1 Physical Exam GENERAL: In NAD SKIN: Warm and dry. HEAD: Normocephalic. EYES: No scleral icterus. No injection or drainage. NECK: Supple, trachea midline. No JVD or lymphadenopathy. CARDIOVASCULAR: Regular rate and rhythm without murmurs, gallops, or rubs. RESPIRATORY: Breath sounds equal bilaterally. No accessory muscle use. GASTROINTESTINAL: Abdomen soft, non-tender, nondistended. MUSCULOSKELETAL: No cyanosis, 1+ LE edema. Laboratory Laboratory Tests Test 10/03/16 04:21 Sodium Level 136 MEQ/L Potassium Level 4.0 MEQ/L Chloride Level 97 MEQ/L Carbon Dioxide Level 29.2 MEQ/L Anion Gap 10 MEQ/L Blood Urea Nitrogen 41 MG/DL Creatinine 1.62 MG/DL Estimat Glomerular Filtration 53 ML/MIN Rate Random Glucose 90 MG/DL Calcium Level 8.8 MG/DL Phosphorus Level 3.2 MG/DL Imaging Last Impressions Lower Extremity Ultrasound 10/02/16518 Signed Impressions: Service Date/Time: Sunday, October 02, 2016 07:55 - CONCLUSION: 1. No DVT identified. 2. There are edematous changes within the subcutaneous soft tissues bilaterally. Carmine Jernigan MD Chest X-Ray 10/02/16518 Signed Impressions: Service Date/Time: Sunday, October 02, 2016 05:36 - CONCLUSION: Lungs are mostly clear. Cardiac silhouette remains widened. Robin Ramirez MD Assessment and Plan Problem List: (1) Acute systolic CHF (congestive heart failure), NYHA class 3 (2) Nonischemic congestive cardiomyopathy (3) Acute renal failure (4) AICD (automatic cardioverter/defibrillator) present Assessment and Plan Diuresing, renal fx improved. Still with mild edema. Increase activity. Continue tx for CHF. Anticipate discharge if stable in the next 24-48 hrs. Will consider the referral for cardiac transplant evaluation after the next outpatient followup. D/w pt and . Chace Styles MD Oct 03, 2016 14:14
[2016-10-03 16:23] LABS: BLOOD, URINE NEG (NEG); GLUCOSE,URINE NEG (NEG); KETONE, URINE NEG (NEG); MUCUS URINE FEW /lpf (OCC); NITRITE,URINE NEG (NEG); SQUAMOUS EPITHELIAL CELL URINE <1 /hpf (0-5); URINE COLOR YELLOW (YELLW/STRAW)
[2016-10-03 16:28] LABS: COMMENT (UR) CULT NOT INDICATED; CULTURE IF INDICATED CULT NOT INDICATED
[2016-10-04 00:14] VITALS: PULSE 76
[2016-10-04 07:24] LABS: BICARBONATE 30.5 MEQ/L (21.0-32.0)
[2016-10-04 07:31] LABS: POTASSIUM 5.3 MEQ/L (3.5-5.1)
[2016-10-04 07:50] VITALS: BP 86/64; PULSE 59; RESP 18; TEMP 97.6; O2SAT 95
[2016-10-04] MEDS: CARVEDILOL 3.125 MG TAB PO SCH ×2 (09:00→19:55)
[2016-10-04] MEDS: DOCUSATE SODIUM 50 MG/SENNA 8.6 MG TAB PO SCH ×2 (09:00→19:55)
[2016-10-04] MEDS: ASPIRIN 81 MG CHEW TAB CHEW SCH (09:00)
[2016-10-04] MEDS: DIGOXIN 0.25 MG TAB PO SCH (09:00)
[2016-10-04] MEDS: SODIUM CHLORIDE 0.9% FLUSH 10 ML FLUSH IV FLUSH SCH ×2 (09:01→19:55)
[2016-10-04] MEDS: FUROSEMIDE 40 MG/4 ML VIAL IV PUSH SCH ×2 (09:01→18:06)
--- NOTE | 2016-10-04 09:26 | HHI.NPPN ---
Subjective General Problems: Edema, Heart Disease Renal Failure: Chronic, Acute Interval History Eating breakfast. Renal function is better. Still with lower extremity edema. ( Lis Crane) Review of Systems Respiratory Lungs: SOB (Lis Crane) Cardiovascular Cardiac: Edema (Lis Crane) Objective Data Data Vital Signs Date Time Temp Pulse Resp B/P Pulse Ox O2 Delivery O2 Flow Rate FiO2 10/04/16 07:50 97.6 59 18 86/64 95 10/04/16 00:14 76 10/03/16 19:45 97.7 70 18 107/59 10/03/16 15:30 95.9 32 18 116/78 10/03/16 11:42 97.5 65 20 116/81 95 (Lis Crane) -: 10/02/16 0515 10/04/16 0600 Imaging Last 72 hours Impressions Lower Extremity Ultrasound 10/02/16518 Signed Impressions: Service Date/Time: Sunday, October 02, 2016 07:55 - CONCLUSION: 1. No DVT identified. 2. There are edematous changes within the subcutaneous soft tissues bilaterally. Carmine Jernigan MD Chest X-Ray 10/02/16518 Signed Impressions: Service Date/Time: Sunday, October 02, 2016 05:36 - CONCLUSION: Lungs are mostly clear. Cardiac silhouette remains widened. Robin Ramirez MD (Lis Crane) Physical Exam General Appearance: Well Developed, Well Nourished, No Acute Distress (Lis Crane) Neck Neck Exam: Neck Supple, Trachea Midline (Lis Crane) Pulmonary Resp Exam: Clear Bilaterally, Breath Sounds Equal, No Distress (Lis Crane) Cardiology CV Exam: Regular, Normal Sinus Rhythm CV Remarks AICD left chest (Lis Crane) Gastrointestinal/Abdomen GI Exam: Soft, Non-Tender, Bowel Sounds Present (Lis Crane) Musculoskeletal MS Exam: Joints Intact, Normal Tone, Good Strength (Lis Crane) Integumentary Skin Exam: Clear, Warm, Dry, Intact (Lis Crane) Extremeties Extremities Exam: Pedal Pulses Palpable, Moderate Edema, Pitting Edema ( Lis Crane) Neurologic Neuro Exam: Alert, Awake, Oriented, Speech Clear, Moving All Extremities ( Lis Crane) Psychiatric Psych Exam: Appropriate Responses (Lis Crane) VTE Prophylaxis Device: SCDs (Lis Crane) Assessment/Plan Discussed Condition With: Patient Assessment Summary: MICHELLE/Acute Renal Failure, Anemia of CKD, Fluid/Volume Overload, CHF, Hypertension, CKD Stage III Problem List: (1) Acute renal failure Plan: Acute on CKD 3 MICHELLE from CHF exacerbation, renal function is better K 5.3, change to renal diet continue lasix BID UA is benign avoid IVF, nephrotoxic medications. he is stable and cleared for discharge from nephrology perspective (2) CHF (congestive heart failure) Plan: EF 15%, has AICD continue diuresis, follow weights, I/Os, fluid status oral restriction discussed he is on coreg and digoxin to follow with cardiology after discharge (3) Hypertension Plan: Low BP in the morning he is on lasix BID and coreg continue with hold parameters (Lis Crane) Plan patient was seen and examined. Renal function is stable. Needs dietary potassium restriction. (Jim Mccoy MD) Problem Qualifiers (1) CHF (congestive heart failure): Qualified Code: I50.9 - Congestive heart failure, unspecified congestive heart failure chronicity, unspecified congestive heart failure type Lis Crane Oct 04, 2016 09:26 Jim Mccoy MD Oct 04, 2016 10:20
--- NOTE | 2016-10-04 11:17 | HHI.FPPN ---
Subjective Remarks incr EDEMA C/O INCR COUGH D/W , WANTS HIM BETTER REPORTS NOT FUNCTIONING ENOUGH TO GO HOME D/W RN Objective Vitals Vital Signs Date Time Temp Pulse Resp B/P Pulse Ox O2 Delivery O2 Flow Rate FiO2 10/04/16 07:50 97.6 59 18 86/64 95 10/04/16 00:14 76 10/03/16 19:45 97.7 70 18 107/59 10/03/16 15:30 95.9 32 18 116/78 10/03/16 11:42 97.5 65 20 116/81 95 Result Diagram: 10/02/16 0515 10/04/16 0600 Objective Remarks GENERAL: SKIN: Warm and dry. HEAD: Atraumatic. Normocephalic. EYES: Pupils equal and round. No scleral icterus. No injection or drainage. ENT: No nasal bleeding or discharge. Mucous membranes pink and moist. NECK: Trachea midline. No JVD. CARDIOVASCULAR: Regular rate and rhythm. RESPIRATORY: B R/R GASTROINTESTINAL: Abdomen soft, non-tender, nondistended. Hepatic and splenic margins not palpable. MUSCULOSKELETAL: Extremities without clubbing, cyanosis. 3 edema. No obvious deformities. NEUROLOGICAL: Awake and alert. No obvious cranial nerve deficits. Motor grossly within normal limits. Five out of 5 muscle strength in the arms and legs. Normal speech. PSYCHIATRIC: Appropriate mood and affect; insight and judgment normal. Medications and IVs Current Medications Medications (Trade) Dose Ordered Sig/Levi Route Start Time Stop Time Status Last Admin (Aspirin Chew) 81 mg DAILY CHEW 10/03/16 09:00 10/04/16 09:00 (Coreg) 3.125 mg BID PO 10/02/16 21:00 10/04/16 09:00 (Lanoxin) 0.25 mg DAILY PO 10/03/16 09:00 10/04/16 09:00 (Ultram) 50 mg Q4H PRN PO 10/02/16 12:00 (NS Flush) 2 ml UNSCH PRN IV FLUSH 10/02/16 11:30 (NS Flush) 2 ml BID IV FLUSH 10/02/16 21:00 10/04/16 09:01 (Tylenol) 650 mg Q4H PRN PO 10/02/16 11:30 (Zofran Inj) 4 mg Q6H PRN IVP 10/02/16 11:30 (Ambien) 5 mg HS PRN PO 10/02/16 11:30 (Heparin Inj) 5,000 units Q12H SQ 10/02/16 12:00 10/02/16 23:42 (Narcan Inj) 0.4 mg UNSCH PRN IV 10/02/16 11:30 (Maria G-Colace) 1 tab BID PO 10/02/16 12:00 10/04/16 09:00 (Milk Of Magnesia Liq) 30 ml Q12H PRN PO 10/02/16 11:30 (Senokot) 17.2 mg Q12H PRN PO 10/02/16 11:30 (Dulcolax Supp) 10 mg DAILY PRN RECTAL 10/02/16 11:30 (Lactulose Liq) 30 ml DAILY PRN PO 10/02/16 11:30 (Lasix Inj) 40 mg BID@09,18 IV PUSH 10/02/16 18:00 10/04/16 09:01 A/P Problem List: (1) CHF (congestive heart failure) Status: Acute (2) Acute renal failure Status: Acute (3) Renal insufficiency Status: Acute (4) CKD (chronic kidney disease) stage 3, GFR 30-59 ml/min Status: Acute (5) Failure of outpatient treatment Status: Acute (6) Hypertension Status: Acute Plan: PLAN: IV LASIX HOLD SPIRONOLACTONE D/T HYPERKALEMIA DX FOLLOWUP K LEVEL HOLD LOSARTAN CHECK DIGOXIN LEVEL TELE NEPHRO CONSULT CARDIO CONSULT PT HEPARIN 5000 BID FOR PROPHYLAXIS SCD'S/TEDS AM LABS, MONITOR CARDIORENAL SYNDROME SEE ORDERS PLEASE. OBS ADMIT. Problem Qualifiers (1) CHF (congestive heart failure): Qualified Code: I50.9 - Congestive heart failure, unspecified congestive heart failure chronicity, unspecified congestive heart failure type Tao Lopez MD Oct 04, 2016 11:17
[2016-10-04 11:27] VITALS: BP 92/67; PULSE 65; RESP 21; TEMP 97.6
[2016-10-04] MEDS: HEPARIN SODIUM - SQ 10,000 UNITS/ML VIAL SQ SCH (12:00)
--- NOTE | 2016-10-04 16:27 | PD.CARD.PN ---
Subjective Subjective Remarks No CP, SOB improving, edema better Objective Medications Current Medications Medications (Trade) Dose Ordered Sig/Levi Route Start Time Stop Time Status Last Admin (Aspirin Chew) 81 mg DAILY CHEW 10/03/16 09:00 10/04/16 09:00 (Coreg) 3.125 mg BID PO 10/02/16 21:00 10/04/16 09:00 (Lanoxin) 0.25 mg DAILY PO 10/03/16 09:00 10/04/16 09:00 (Ultram) 50 mg Q4H PRN PO 10/02/16 12:00 (NS Flush) 2 ml UNSCH PRN IV FLUSH 10/02/16 11:30 (NS Flush) 2 ml BID IV FLUSH 10/02/16 21:00 10/04/16 09:01 (Tylenol) 650 mg Q4H PRN PO 10/02/16 11:30 (Zofran Inj) 4 mg Q6H PRN IVP 10/02/16 11:30 (Ambien) 5 mg HS PRN PO 10/02/16 11:30 (Heparin Inj) 5,000 units Q12H SQ 10/02/16 12:00 10/04/16 12:00 (Narcan Inj) 0.4 mg UNSCH PRN IV 10/02/16 11:30 (Maria G-Colace) 1 tab BID PO 10/02/16 12:00 10/04/16 09:00 (Milk Of Magnesia Liq) 30 ml Q12H PRN PO 10/02/16 11:30 (Senokot) 17.2 mg Q12H PRN PO 10/02/16 11:30 (Dulcolax Supp) 10 mg DAILY PRN RECTAL 10/02/16 11:30 (Lactulose Liq) 30 ml DAILY PRN PO 10/02/16 11:30 (Lasix Inj) 40 mg BID@,18 IV PUSH 10/02/16 18:00 10/04/16 09:01 Vital Signs / I&O Vital Signs Date Time Temp Pulse Resp B/P Pulse Ox O2 Delivery O2 Flow Rate FiO2 10/04/16 11:27 97.6 65 21 92/67 10/04/16 07:50 97.6 59 18 86/64 95 10/04/16 00:14 76 10/03/16 19:45 97.7 70 18 107/59 Physical Exam GENERAL: In NAD SKIN: Warm and dry. HEAD: Normocephalic. EYES: No scleral icterus. No injection or drainage. NECK: Supple, trachea midline. No JVD or lymphadenopathy. CARDIOVASCULAR: Regular rate and rhythm without murmurs, gallops, or rubs. RESPIRATORY: Breath sounds equal bilaterally. No accessory muscle use. GASTROINTESTINAL: Abdomen soft, non-tender, nondistended. MUSCULOSKELETAL: No cyanosis, trace LE edema. Laboratory Laboratory Tests Test 10/04/16 06:00 Sodium Level 133 MEQ/L Potassium Level 5.3 MEQ/L Chloride Level 93 MEQ/L Carbon Dioxide Level 30.5 MEQ/L Anion Gap 10 MEQ/L Blood Urea Nitrogen 38 MG/DL Creatinine 1.48 MG/DL Estimat Glomerular Filtration 59 ML/MIN Rate Random Glucose 102 MG/DL Calcium Level 8.6 MG/DL Imaging Last Impressions Lower Extremity Ultrasound 10/02/16518 Signed Impressions: Service Date/Time: Sunday, October 02, 2016 07:55 - CONCLUSION: 1. No DVT identified. 2. There are edematous changes within the subcutaneous soft tissues bilaterally. Carmine Jernigan MD Chest X-Ray 10/02/16518 Signed Impressions: Service Date/Time: Sunday, October 02, 2016 05:36 - CONCLUSION: Lungs are mostly clear. Cardiac silhouette remains widened. Robin Ramirez MD Assessment and Plan Problem List: (1) Acute systolic CHF (congestive heart failure), NYHA class 3 (2) Nonischemic congestive cardiomyopathy (3) Acute renal failure (4) AICD (automatic cardioverter/defibrillator) present Assessment and Plan Continues to diurese well, renal fx steadily improving. Increase activity. Continue tx for CHF. Anticipate discharge if stable tomorrow. Will consider the referral for cardiac transplant evaluation after the next outpatient followup. D /w pt. Chace Styles MD Oct 04, 2016 16:27
[2016-10-04 19:53] VITALS: BP 177/101; PULSE 66; RESP 18
[2016-10-04 23:58] VITALS: PULSE 107; RESP 20; TEMP 97.5; O2SAT 94
[2016-10-05 00:06] VITALS: BP 83/59; PULSE 65; RESP 20; TEMP 96.3; O2SAT 94
[2016-10-05 00:08] VITALS: BP 169/104
[2016-10-05] MEDS: HEPARIN SODIUM - SQ 10,000 UNITS/ML VIAL SQ SCH ×2 (02:22→12:00)
[2016-10-05 04:45] VITALS: BP 87/66; PULSE 52; RESP 20; O2SAT 92
[2016-10-05 07:46] VITALS: BP 108/64; PULSE 69; RESP 20; TEMP 97.9; O2SAT 95
[2016-10-05 07:59] LABS: BICARBONATE 29.3 MEQ/L (21.0-32.0); POTASSIUM 3.8 MEQ/L (3.5-5.1)
--- NOTE | 2016-10-05 09:01 | HHI.NPPN ---
Subjective General Problems: Edema, Heart Disease Renal Failure: Chronic, Acute Interval History Feels better. Edema improved. Renal function and potassium also improved. ( Lis Crnae) Review of Systems Respiratory Lungs: SOB (Lsi Crane) Cardiovascular Cardiac: Edema Cardiac Remarks minimal edema (Lis Crane) Objective Data Data Vital Signs Date Time Temp Pulse Resp B/P Pulse Ox O2 Delivery O2 Flow Rate FiO2 10/05/16 07:46 97.9 69 20 108/64 95 10/05/16 04:45 52 20 87/66 92 10/05/16 00:06 96.3 65 20 83/59 94 10/04/16 19:53 66 18 177/101 10/04/16 11:27 97.6 65 21 92/67 (Lis Crane) -: 10/02/16 0515 10/05/16 0618 Imaging Last Impressions Lower Extremity Ultrasound 10/02/16 0519 Signed Impressions: Service Date/Time: Sunday, October 02, 2016 07:55 - CONCLUSION: 1. No DVT identified. 2. There are edematous changes within the subcutaneous soft tissues bilaterally. Carmine Jernigan MD Chest X-Ray 10/02/16 05 Signed Impressions: Service Date/Time: Sunday, October 02, 2016 05:36 - CONCLUSION: Lungs are mostly clear. Cardiac silhouette remains widened. Robin Ramirez MD (Lis Crane) Physical Exam General Appearance: Well Developed, Well Nourished, No Acute Distress, Comfortable ( Lis Crane) Neck Neck Exam: Neck Supple, Trachea Midline (Lis Crane) Pulmonary Resp Exam: Clear Bilaterally, Breath Sounds Equal, No Distress (Lis Crane) Cardiology CV Exam: Regular, Normal Sinus Rhythm, Good Perfusion CV Remarks AICD left chest (Lis Crane) Gastrointestinal/Abdomen GI Exam: Soft, Non-Tender, Bowel Sounds Present (Lis Crane) Musculoskeletal MS Exam: Joints Intact, Normal Tone, Good Strength (Lis Crane) Integumentary Skin Exam: Clear, Warm, Dry, Intact (Lis Crane) Extremeties Extremities Exam: Pedal Pulses Palpable, Trace Edema, Pitting Edema (Lis Crane) Neurologic Neuro Exam: Alert, Awake, Oriented, Speech Clear, Moving All Extremities ( Lis Crane) Psychiatric Psych Exam: Appropriate Responses (Lis Crane) VTE Prophylaxis Device: SCDs (Lis Crane) Assessment/Plan Discussed Condition With: Patient Assessment Summary: MICHELLE/Acute Renal Failure, Anemia of CKD, Fluid/Volume Overload, CHF, Hypertension, CKD Stage III Problem List: (1) Acute renal failure Plan: Acute on CKD 3 MICHELLE from CHF exacerbation, renal function has improved potassium is in normal range change diuretics to oral prior to discharge per cardiology no acute renal concerns stable for discharge avoid NSAIDs after discharge (2) CHF (congestive heart failure) Plan: EF 15%, has AICD continue diuresis oral restriction discussed he is on coreg and digoxin to follow with cardiology after discharge, will be referred to cardiac transplant center (3) Hypertension Plan: AM blood pressure readings have been low he is on lasix BID and coreg continue with hold parameters Plan we will sign off at this time please call us if needed (Lis Crane) Plan patient was seen and examined. Renal function has improved. Continue diuretic. I will sign off at this time. (Jim Mccoy MD) Problem Qualifiers (1) CHF (congestive heart failure): Qualified Code: I50.9 - Congestive heart failure, unspecified congestive heart failure chronicity, unspecified congestive heart failure type Lis Crane Oct 05, 2016 09:01 Jim Mccoy MD Oct 05, 2016 10:56
[2016-10-05] MEDS: DIGOXIN 0.25 MG TAB PO SCH (10:12)
[2016-10-05] MEDS: FUROSEMIDE 40 MG/4 ML VIAL IV PUSH SCH (10:12)
[2016-10-05] MEDS: DOCUSATE SODIUM 50 MG/SENNA 8.6 MG TAB PO SCH (10:12)
[2016-10-05] MEDS: ASPIRIN 81 MG CHEW TAB CHEW SCH (10:12)
[2016-10-05] MEDS: CARVEDILOL 3.125 MG TAB PO SCH (10:12)
[2016-10-05] MEDS: SODIUM CHLORIDE 0.9% FLUSH 10 ML FLUSH IV FLUSH SCH (10:13)
--- NOTE | 2016-10-05 10:27 | PD.CARD.PN ---
Subjective Subjective Remarks No CP or SOB, feels better Objective Medications Current Medications Medications (Trade) Dose Ordered Sig/Levi Route Start Time Stop Time Status Last Admin (Aspirin Chew) 81 mg DAILY CHEW 10/03/16 09:00 10/05/16 10:12 (Coreg) 3.125 mg BID PO 10/02/16 21:00 10/05/16 10:12 (Lanoxin) 0.25 mg DAILY PO 10/03/16 09:00 10/05/16 10:12 (Ultram) 50 mg Q4H PRN PO 10/02/16 12:00 (NS Flush) 2 ml UNSCH PRN IV FLUSH 10/02/16 11:30 (NS Flush) 2 ml BID IV FLUSH 10/02/16 21:00 10/05/16 10:13 (Tylenol) 650 mg Q4H PRN PO 10/02/16 11:30 (Zofran Inj) 4 mg Q6H PRN IVP 10/02/16 11:30 (Ambien) 5 mg HS PRN PO 10/02/16 11:30 (Heparin Inj) 5,000 units Q12H SQ 10/02/16 12:00 10/05/16 02:22 (Narcan Inj) 0.4 mg UNSCH PRN IV 10/02/16 11:30 (Maria G-Colace) 1 tab BID PO 10/02/16 12:00 10/05/16 10:12 (Milk Of Magnesia Liq) 30 ml Q12H PRN PO 10/02/16 11:30 (Senokot) 17.2 mg Q12H PRN PO 10/02/16 11:30 (Dulcolax Supp) 10 mg DAILY PRN RECTAL 10/02/16 11:30 (Lactulose Liq) 30 ml DAILY PRN PO 10/02/16 11:30 (Lasix Inj) 40 mg BID@18 IV PUSH 10/02/16 18:00 10/05/16 10:12 Vital Signs / I&O Vital Signs Date Time Temp Pulse Resp B/P Pulse Ox O2 Delivery O2 Flow Rate FiO2 10/05/16 07:46 97.9 69 20 108/64 95 10/05/16 04:45 52 20 87/66 92 10/05/16 00:06 96.3 65 20 83/59 94 10/04/16 19:53 66 18 177/101 10/04/16 11:27 97.6 65 21 92/67 Physical Exam GENERAL: In NAD SKIN: Warm and dry. HEAD: Normocephalic. EYES: No scleral icterus. No injection or drainage. NECK: Supple, trachea midline. No JVD or lymphadenopathy. CARDIOVASCULAR: Regular rate and rhythm without murmurs, gallops, or rubs. RESPIRATORY: Breath sounds equal bilaterally. No accessory muscle use. GASTROINTESTINAL: Abdomen soft, non-tender, nondistended. MUSCULOSKELETAL: No cyanosis, trace LE edema. Laboratory Laboratory Tests Test 10/05/16 06:18 Sodium Level 134 MEQ/L Potassium Level 3.8 MEQ/L Chloride Level 95 MEQ/L Carbon Dioxide Level 29.3 MEQ/L Anion Gap 10 MEQ/L Blood Urea Nitrogen 33 MG/DL Creatinine 1.22 MG/DL Estimat Glomerular Filtration 73 ML/MIN Rate Random Glucose 111 MG/DL Calcium Level 8.9 MG/DL Imaging Last Impressions Lower Extremity Ultrasound 10/02/16518 Signed Impressions: Service Date/Time: Sunday, October 02, 2016 07:55 - CONCLUSION: 1. No DVT identified. 2. There are edematous changes within the subcutaneous soft tissues bilaterally. Carmine Jernigan MD Chest X-Ray 10/02/16518 Signed Impressions: Service Date/Time: Sunday, October 02, 2016 05:36 - CONCLUSION: Lungs are mostly clear. Cardiac silhouette remains widened. Robin Ramirez MD Assessment and Plan Problem List: (1) Acute systolic CHF (congestive heart failure), NYHA class 3 (2) Nonischemic congestive cardiomyopathy (3) Acute renal failure (4) AICD (automatic cardioverter/defibrillator) present Assessment and Plan Continues to diurese well, renal fx significantly improved. Increase activity. Continue tx for CHF. Will refer for cardiac transplant evaluation after the next outpatient followup. D/w pt. OK to discharge home. Chace Styles MD Oct 05, 2016 10:27
[2016-10-05 11:39] VITALS: BP 98/64; PULSE 68; RESP 20; TEMP 97.9; O2SAT 95
[2016-10-05] MEDS ORDERED: FURO1TAB60 PO (14:14)
--- NOTE | 2016-10-05 14:16 | HHI.DCPOC ---
Discharge Care Plan Diagnosis: (1) Acute renal failure (2) CHF (congestive heart failure) (3) Renal insufficiency (4) CKD (chronic kidney disease) stage 3, GFR 30-59 ml/min (5) Chest pain, rule out acute myocardial infarction (6) Failure of outpatient treatment (7) Hypertension (8) Nonischemic congestive cardiomyopathy (9) Acute systolic CHF (congestive heart failure), NYHA class 3 (10) AICD (automatic cardioverter/defibrillator) present Goals to Promote Your Health * To prevent worsening of your condition and complications * To maintain your health at the optimal level Directions to Meet Your Goals Take your medications as prescribed Follow your dietary instruction Follow activity as directed Keep your appointments as scheduled Take your immunizations and boosters as scheduled If your symptoms worsen call your PCP, if no PCP go to Urgent Care Center or Emergency Room Smoking is Dangerous to Your Health. Avoid second hand smoke Call the 24-hour hour crisis hotline for domestic abuse at Tao Lopez MD Oct 05, 2016 14:16
--- NOTE | 2016-10-05 14:18 | HHI.DS ---
Discharge Summary Admission Date Oct 02, 2016 at 10:42 Discharge Date: Oct 05, 2016 Admitting Diagnosis congestive heart failure, renal insufficiency, outpatient treatment (1) Acute renal failure (2) CHF (congestive heart failure) (3) Renal insufficiency (4) CKD (chronic kidney disease) stage 3, GFR 30-59 ml/min (5) Chest pain, rule out acute myocardial infarction (6) Failure of outpatient treatment (7) Hypertension (8) Nonischemic congestive cardiomyopathy (9) Acute systolic CHF (congestive heart failure), NYHA class 3 (10) AICD (automatic cardioverter/defibrillator) present Brief History 61 Y AAM. INCREASING SOB AND CHF SYMPTOMS PROGRESSIVELY OVER THE PAST FEW YEARS. PT IN MY OFFICE ROUTINELY AND WE HAVE BEEN MONITORING HIS CHF. PT W GENERAL DECLINE OVER THE LAST FEW MONTHS AND PRESENTED WITH HIS TODAY WITH INCR SOB AND EDEMA. I WAS CALLED BY THE ER MD FOR ADMIT. DR SOLIZ CONSULTED. PT C/O INCR XIONG AND UNABLE TO FUNCTION AT HOME. LABS WORSENED, INCR RI. PT C/O DIZZINESS W SITTING UP AND WEAKNESS INCREASE. CBC/BMP: 10/02/16 0515 10/05/16 0618 Significant Findings Laboratory Tests Test 10/03/16 10/03/16 10/04/16 10/05/16 04:21 15:45 06:00 06:18 Chloride Level 97 MEQ/L 93 MEQ/L 95 MEQ/L (98-107) (98-107) (98-107) Blood Urea Nitrogen 41 MG/DL (7-18) 38 MG/DL (7-18) 33 MG/DL (7-18) Creatinine 1.62 MG/DL 1.48 MG/DL (0.60-1.30) (0.60-1.30) Estimat Glomerular Filtration 53 ML/MIN (>89) 59 ML/MIN (>89) 73 ML/MIN (>89) Rate Urine Mucus FEW /lpf (OCC) Sodium Level 133 MEQ/L 134 MEQ/L (136-145) (136-145) Potassium Level 5.3 MEQ/L (3.5-5.1) Random Glucose 111 MG/DL (74-106) PE at Discharge GENERAL: SKIN: Warm and dry. HEAD: Atraumatic. Normocephalic. EYES: Pupils equal and round. No scleral icterus. No injection or drainage. ENT: No nasal bleeding or discharge. Mucous membranes pink and moist. NECK: Trachea midline. No JVD. CARDIOVASCULAR: Regular rate and rhythm. RESPIRATORY: No accessory muscle use. Clear to auscultation. Breath sounds equal bilaterally. GASTROINTESTINAL: Abdomen soft, non-tender, nondistended. Hepatic and splenic margins not palpable. MUSCULOSKELETAL: Extremities without clubbing, cyanosis, or edema. No obvious deformities. NEUROLOGICAL: Awake and alert. No obvious cranial nerve deficits. Motor grossly within normal limits. Five out of 5 muscle strength in the arms and legs. Normal speech. PSYCHIATRIC: Appropriate mood and affect; insight and judgment normal. Hospital Course 61 Y CM. ADMIT W END STAGE CHF. FAILED OUTPT DIURESIS. C/O CP, SEEN BY CARDIO AND NEPHRO. PT ADN REQ DC. PT IMPROVED OVERALL, WALKED WITH WALKER Discharge Disposition: Disch w/ Home Health Serv Discharge Instructions DIET: Follow Instructions for: Heart Healthy Diet Activities you can perform: Regular-No Restrictions Tao Lopez MD Oct 05, 2016 14:18
[2016-10-05] MEDS ORDERED: ADJUSTABLE COMM1 MIS (14:21)
--- NOTE | 2016-10-05 14:23 | HHI.FF ---
Face to Face Verification Diagnosis: (1) Acute renal failure (2) CHF (congestive heart failure) (3) Renal insufficiency (4) Hypertension (5) CKD (chronic kidney disease) stage 3, GFR 30-59 ml/min (6) Nonischemic congestive cardiomyopathy (7) Chest pain, rule out acute myocardial infarction (8) Acute systolic CHF (congestive heart failure), NYHA class 3 (9) Failure of outpatient treatment (10) AICD (automatic cardioverter/defibrillator) present Home Health Nursing Order: Medical education Signs/symptoms of disease process CHF education Medication education-adverse effect Nursing assessment with vital signs Telehealth Home Health Aide Order: To Assist In: Bathing and personal care, director of event sales and meal prep Superintendent [place] Order: To Evaluate: Living conditions/environment, Support services Order: To Provide: Long range planning, Community services I have seen patient Pankaj Mann on 10/05/16. My clinical findings support the need for the requested home health care services because: Ltd mobility - disease progression Patient has SOB Deconditioned w/ increased weakness Med compliance is questionable Limited ability to care for self Need for psychosocial assistance Impaired cognition/judgement I certify that my clinical findings support that this patient is homebound because: Impaired cognitive ability/safety Unsteady gait/balance Unsafe to leave home unassisted Need for psychosocial assistance Poor cardiac reserve Tao Lopez MD Oct 05, 2016 14:23
== END 2016-10-05 15:08 | disposition home or self-care (01) ==
LOC: NEPC 04:54 → INTOOBSV 10:42 → NEDA 10:42 → NEPGCP 15:48
PROVIDERS: ADMIT Family Medicine; ATTEND Family Medicine
DX: I13.0 Hypertensive heart and chronic kidney disease with heart failure and stage 1 through stage 4 chronic kidney disease, or unspecified chronic kidney disease (principal); N17.9 Acute kidney failure, unspecified; I50.23 Acute on chronic systolic (congestive) heart failure; N18.3 Chronic kidney disease, stage 3 (moderate); I42.0 Dilated cardiomyopathy; E87.5 Hyperkalemia; Z95.810 Presence of automatic (implantable) cardiac defibrillator; Z86.73 Personal history of transient ischemic attack (TIA), and cerebral infarction without residual deficits; Z79.82 Long term (current) use of aspirin; R06.02 Shortness of breath; R60.9 Edema, unspecified
CPT/HCPCS: 71010; 80048; 80053; 80162; 81001; 82550; 83880; 84100; 84439; 84443; 84484; 85025; 85610; 85730; 93005; 93970; 97110; 97116; 97163; 99285; G0378; G8987; G8988; J1644; J1940

== ENCOUNTER 2016-10-31 22:50 | Inpatient (IN) | payer MEDICARE, OTHER ==
[~2016-10-31] VITALS: Ht 172.7 cm; Wt 82.0 kg
[~2016-10-31 22:50] MED LIST changes: +ADJUSTABLE COMM1 MIS; -ALBU6.7H INH; -BUME1TAB25 PO; +FURO1TAB60 PO; -IPRASOL INH; -LORA10TA PO; -LOSA25TA PO; -NITR1SUB3 SL; +TRAM50TA PO; +ZOFR4TAB PO
[2016-10-31 22:55] VITALS: BP 140/73; PULSE 70; RESP 20; TEMP 98.6
[2016-10-31 23:12] VITALS: BP 127/83; PULSE 66; RESP 16; RESP 24; O2SAT 93; O2SAT 96
[2016-10-31 23:15] VITALS: RESP 22; O2SAT 92
[2016-10-31] MEDS ORDERED: TRAZ50TA12 PO (23:19)
--- NOTE | 2016-10-31 23:24 | PD ---
HPI Chief Complaint: Respiratory Symptoms Time Seen by Provider: 23:01 Travel History International Travel<30 days: No Contact w/Intl Traveler<30days: No Traveled to known affect area: No History of Present Illness HPI The patient is 61 year old male who presents to the [facility] emergency department with a history of shortness of breath that began at 8 PM today. The patient reports that he has a history of congestive heart failure. He reports that his lower extremity edema has been worse today. He however denies any recent changes in his weight. He reports that he does weigh himself daily. The patient denies having any chest pain. He reports that he has had a cough that is productive of clear sputum. He denies having any fevers or chills. On review of systems, the patient denies any recent neck pain, abdominal pain, vomiting, diarrhea, urinary symptoms, or neurologic symptoms. The patient denies having any prior history of myocardial infarction, DVT, or PE. PFS Past Medical History Narrative Medical The patient's past medical history is significant for congestive heart failure, hypertension, chronic renal insufficiency, prior history of TIA. Hx Anticoagulant Therapy: Yes Arthritis: No Asthma: No Autoimmune Disease: No Blood Disorders: No Anxiety: No Depression: No Heart Rhythm Problems: Yes Cancer: No Cardiovascular Problems: Yes High Cholesterol: No Chemotherapy: No Chest Pain: Yes Congestive Heart Failure: Yes COPD: No Cerebrovascular Accident: Yes (TIA (denies)) Diabetes: No Diminished Hearing: No Endocrine: No GERD: No Genitourinary: No Hiatal Hernia: No Hypertension: Yes Immune Disorder: No Implanted Vascular Access Dvce: Yes Kidney Stones: Yes Musculoskeletal: No Neurologic: Yes Psychiatric: No Reproductive: No Respiratory: Yes Immunizations Current: Yes Migraines: No Radiation Therapy: No Renal Failure: No Seizures: No Sleep Apnea: No Thyroid Disease: No Ulcer: No Past Surgical History Narrative Surgical The patient's past surgical history is significant for AICD pacemaker placement. Abdominal Surgery: No AICD: Yes Arteriovenous Shunt: No Cardiac Surgery: Yes (PACEMAKER DEFIB) Ear Surgery: No Endocrine Surgery: No Eye Surgery: No Genitourinary Surgery: No Gynecologic Surgery: No Insulin Pump: No Joint Replacement: No Oral Surgery: No Pacemaker: Yes Thoracic Surgery: No Other Surgery: Yes (glass removal from arm.) Social History Alcohol Use: No Tobacco Use: No Substance Use: No Allergies-Medications (Allergen,Severity, Reaction): Coded Allergies: No Known Allergies (Verified , 10/02/16) Reported Meds & Prescriptions Reported Meds & Active Scripts Active Adjustable Commode 3-in-1 (Device) 1 Mis Mis 1 Ea .ROUTE DIRECTED Lasix (Furosemide) 40 Mg Tab 40 Mg PO BID Reported Trazodone (Trazodone HCl) 50 Mg Tab 50 Mg PO HS Spironolactone 25 Mg Tab 25 Mg PO DAILY Digoxin 0.25 Mg Tab 0.25 Mg PO DAILY Carvedilol 3.125 Mg Tab 3.125 Mg PO BID Aspirin 81 Mg Chew 81 Mg CHEW DAILY Review of Systems General / Constitutional: No: Fever, Chills Eyes: No: Visual changes HENT: No: Headaches Cardiovascular: Positive: Chest Pain or Discomfort, Dyspnea on exertion Respiratory: Positive: Cough, Shortness of Breath Gastrointestinal: No: Nausea, Vomiting, Diarrhea, Abdominal Pain Genitourinary: No: Dysuria Musculoskeletal: No: Pain Skin: No Rash Neurologic: No: Weakness, Focal Abnormalities, Change in Mentation, Slurred Speech, Sensory Disturbance Psychiatric: No: Depression Endocrine: No: Polydipsia Hematologic/Lymphatic: No: Easy Bruising Physical Exam Narrative General: The patient is a well-developed well-nourished male in no acute distress, slightly tachypneic on examination. Head and Neck exam: Head is normocephalic atraumatic. Eyes: EOMI, pupils are equal round and reactive to light. Nose: Midline septum with pink mucous membranes Mouth: Dentition unremarkable. Moist mucus membranes. Posterior oropharynx is not erythematous. No tonsillar hypertrophy. Uvula midline. Airway patent. Neck: No palpable lymphadenopathy. No nuchal rigidity. No thyromegaly. Cardiovascular: Regular rate and rhythm without murmurs, gallops, or rubs. No pulse deficit to the extremities and simultaneous auscultation and palpation of his radial artery. Lungs: Decreased breath sounds in bilateral bases. No wheezes, rhonchi, or crackles are audible. The patient is slightly tachypneic on initial evaluation. Abdomen: Soft, without tenderness to palpation in all 4 quadrants of the abdomen. No guarding, rebound, or rigidity. Negative Somers sign. Extremities: No clubbing or cyanosis. The patient has 1+ pitting edema bilateral lower extremities. The patient has compression stockings in place. The patient has no calf tenderness on palpation. 2+ pulses in all 4 extremities. Back: No spinous process tenderness to palpation. No costovertebral angle tenderness to palpation. Neurologic Exam: Grossly nonfocal. Skin Exam: No rash noted. Intact skin that is warm and dry. Data Data Last Documented VS Vital Signs Date Time Temp Pulse Resp B/P Pulse Ox O2 Delivery O2 Flow Rate FiO2 11/01/16 01:49 80 22 114/78 99 Nasal Cannula 2 10/31/16 22:55 98.6 Orders Electrocardiogram (10/31/16 23:13) Complete Blood Count With Diff (10/31/16 23:13) Comprehensive Metabolic Panel (10/31/16 23:13) Creatine Kinase (Cpk) (10/31/16 23:13) Ckmb (Isoenzyme) Profile (10/31/16 23:13) Troponin I (10/31/16 23:13) Prothrombin Time / Inr (Pt) (10/31/16 23:13) Act Partial Throm Time (Ptt) (10/31/16 23:13) Lipase (10/31/16 23:13) Urinalysis - C+S If Indicated (10/31/16 23:13) D-Dimer (10/31/16 23:13) Magnesium (Mg) (10/31/16 23:13) Digoxin (10/31/16 23:13) Chest, Single Ap (10/31/16 23:13) Iv Access Insert/Monitor (10/31/16 23:13) Ecg Monitoring (10/31/16 23:13) Oximetry (10/31/16 23:13) CKMB (10/31/16 23:28) CKMB% (10/31/16 23:28) Ct Pulmonary Angiogram (11/01/16 00:55) Iohexol 350 Inj (Omnipaque 350 Inj) (11/01/16 01:23) B-Type Natriuretic Peptide (11/01/16 01:36) Blood Culture (11/01/16 02:11) Ceftriaxone Inj (Rocephin Inj) (11/01/16 02:15) Azithromycin Inj (Zithromax Inj) (11/01/16 02:15) Admit Order (Ed Use Only) (11/01/16 02:19) Albuterol-Ipratropium Neb (Duoneb Neb) (11/01/16 02:30) Labs Laboratory Tests Test 10/31/16 11/01/16 23:28 01:04 White Blood Count 4.8 TH/MM3 Red Blood Count 5.07 MIL/MM3 Hemoglobin 13.0 GM/DL Hematocrit 42.3 % Mean Corpuscular Volume 83.4 FL Mean Corpuscular Hemoglobin 25.7 PG Mean Corpuscular Hemoglobin 30.8 % Concent Red Cell Distribution Width 21.6 % Platelet Count 120 TH/MM3 Mean Platelet Volume 10.6 FL Neutrophils (%) (Auto) 52.7 % Lymphocytes (%) (Auto) 35.4 % Monocytes (%) (Auto) 10.5 % Eosinophils (%) (Auto) 0.8 % Basophils (%) (Auto) 0.6 % Neutrophils # (Auto) 2.5 TH/MM3 Lymphocytes # (Auto) 1.7 TH/MM3 Monocytes # (Auto) 0.5 TH/MM3 Eosinophils # (Auto) 0.0 TH/MM3 Basophils # (Auto) 0.0 TH/MM3 CBC Comment DIFF FINAL Differential Comment Prothrombin Time 17.7 SEC Prothromb Time International 1.6 RATIO Ratio Activated Partial 27.5 SEC Thromboplast Time D-Dimer Quantitative (PE/DVT) 14.94 MG/L FEU Sodium Level 136 MEQ/L Potassium Level 4.8 MEQ/L Chloride Level 99 MEQ/L Carbon Dioxide Level 28.1 MEQ/L Anion Gap 9 MEQ/L Blood Urea Nitrogen 34 MG/DL Creatinine 1.88 MG/DL Estimat Glomerular Filtration 45 ML/MIN Rate Random Glucose 126 MG/DL Calcium Level 8.5 MG/DL Magnesium Level 2.0 MG/DL Total Bilirubin 2.7 MG/DL Aspartate Amino Transf 61 U/L (AST/SGOT) Alanine Aminotransferase 27 U/L (ALT/SGPT) Alkaline Phosphatase 289 U/L Total Creatine Kinase 172 U/L Creatine Kinase MB LESS THAN 0.5 NG/ML Troponin I 0.04 NG/ML B-Type Natriuretic Peptide 815 PG/ML Total Protein 8.9 GM/DL Albumin 2.3 GM/DL Lipase 124 U/L Digoxin Level 0.6 NG/ML Urine Color YELLOW Urine Turbidity CLEAR Urine pH 5.5 Urine Specific [place] 1.013 Urine Protein 30 mg/dL Urine Glucose (UA) NEG mg/dL Urine Ketones NEG mg/dL Urine Occult Blood NEG Urine Nitrite NEG Urine Bilirubin SMALL Urine Urobilinogen 4.0 MG/DL Urine Leukocyte Esterase NEG Urine RBC 1 /hpf Urine WBC 2 /hpf Urine Bacteria RARE /hpf Urine Hyaline Casts 38 /lpf Microscopic Urinalysis Comment CULT NOT INDICATED MDM Medical Decision Making Medical Screen Exam Complete: Yes Emergency Medical Condition: Yes Medical Record Reviewed: Yes Interpretation(s) Last Impressions CT Angiography 11/01/16 0055 Signed Impressions: Service Date/Time: Tuesday, November 01, 2016 01:12 - CONCLUSION: 1. No evidence for pulmonary embolism. 2. Patchy infiltrates right middle lobe and right lower lobe. 3. Cardiomegaly. Sammy Ornelas MD Chest X-Ray 10/31/16 5913 Signed Impressions: Service Date/Time: Monday, October 31, 2016 23:35 - CONCLUSION: 1. Right basilar consolidation could be related to parenchymal scarring versus less likely infiltrate as this was present on previous study. Sammy Ornelas MD Differential Diagnosis Congestive heart failure exacerbation, versus pneumonia, versus pulmonary embolism, versus acute coronary syndrome Narrative Course During the course of the patients emergency department visit, the patients history, examination, and differential diagnosis were reviewed with the patient. The patient had IV access obtained and blood work sent for analysis. The patient was placed on a compliance monitor with oximetry and blood pressure monitoring. An ECG was done on arrival. The patient's ECG reveals a sinus rhythm heart rate of 71, marked right axis deviation, no acute ST segment elevation or depression, QRS duration is 125 ms, QTc is 427 ms. The patients laboratory studies were reviewed and remarkable for a white count of 4.8, hemoglobin 13, platelets 120 with 10.5 monocytes, CMP is remarkable for BUN of 34, creatinine 1.88 in a patient with a known history of renal insufficiency, glucose 126, total bilirubin 2.7, AST 61, alkaline phosphatase 289, CPK 172, CK-MB less than 0.5, troponin I 0.04, BNP is 815, lipase 124. PT 17.7, INR 1.6, PTT 27.5, d-dimer 14.94. Urinalysis shows small bilirubin for urobilinogen, rare bacteria, otherwise unremarkable, digoxin level 0.6 Radiology studies were reviewed and remarkable for a chest x-ray that shows a right basilar consolidation. The patient had blood cultures 2 ordered. The patient was given Rocephin 1 g IV, Zithromax 500 IV. A CTA to rule out PE shows no evidence of pulmonary embolism, patchy infiltrates right middle lobe and right lower lobe, cardiomegaly. The patients results were discussed with the patient, including the plan of care. I explained that further testing and/ or monitoring is indicated based on the patients history, examination, and/ or laboratory findings. Therefore, I recommended admission for additional evaluation. The patient expressed understanding and was agreeable with this plan. The patient was admitted to the hospital in stable condition and sent to a bed under the care of Dr. Lopez. Physician Communication Physician Communication The patient's case was discussed with Dr. Lopez who did agree to admit the patient for further evaluation and treatment at this time. Admitting Information Admitting Physician Requests: Tari Walls MD Oct 31, 2016 23:23
[2016-10-31 23:51] LABS: AUTOMATED NEUTROPHIL # 2.5 TH/MM3 (1.8-7.7); BASOPHIL % 0.6 % (0.0-2.0); EOSINOPHIL % 0.8 % (0.0-4.0); HEMATOCRIT 42.3 % (39.0-51.0); HEMO FLAGS DIFF FINAL; LYMPH % 35.4 % (9.0-44.0); LYMPHOCYTE # 1.7 TH/MM3 (1.0-4.8); MEAN CELL VOLUME 83.4 FL (80.0-100.0); MEAN CORPUSCULAR HEMOGLOBIN 25.7 PG (27.0-34.0); MEAN CORPUSCULAR HGB CONC 30.8 % (32.0-36.0); MONO % 10.5 % (0.0-8.0); NEUT % 52.7 % (16.0-70.0); PLATELET COUNT 120 TH/MM3 (150-450); RED BLOOD COUNT 5.07 MIL/MM3 (4.50-5.90); RED CELL DISTRIBUTION WIDTH 21.6 % (11.6-17.2); WHITE BLOOD COUNT 4.8 TH/MM3 (4.0-11.0)
[2016-11-01] VITALS (9 sets, daily range): BP systolic 94–186; BP diastolic 61–82; PULSE 61–80; RESP 16–22; TEMP 95.8–97.8; O2SAT 94–99
[2016-11-01 00:06] LABS: APTT (PATIENT) 27.5 SEC (24.3-30.1); INTERNATIONAL NORMALIZED RATIO 1.6 RATIO; PROTHROMBIN TIME - PATIENT 17.7 SEC (9.8-11.6)
--- NOTE | 2016-11-01 00:16 | RADRPT ---
EXAM DATE/TIME: 10/31/2016 23:35 [facility] COMPARISON: CHEST SINGLE AP, October 02, 2016, 5:36. INDICATIONS : Shortness of breath. MEDICAL HISTORY : None. SURGICAL HISTORY : Pacemaker. ENCOUNTER: Initial ACUITY: 1 day PAIN SCORE: 0/10 LOCATION: Bilateral chest FINDINGS: A single view of the chest demonstrates cardiomegaly. Right basilar density. Left-sided defibrillator with single intact lead. Osseous structures are intact. CONCLUSION: 1. Right basilar consolidation could be related to parenchymal scarring versus less likely infiltrate as this was present on previous study. Sammy Ornelas MD on November 01, 2016 at 0:14 Board Certified Radiologist. This report was verified electronically.
[2016-11-01 00:19] LABS: ALKALINE PHOSPHATASE 289 U/L (45-117); ALT (GPT) 27 U/L (12-78); ANION GAP 9 MEQ/L (5-15); AST (GOT) 61 U/L (15-37); BICARBONATE 28.1 MEQ/L (21.0-32.0); BLOOD UREA NITROGEN 34 MG/DL (7-18); CHLORIDE 99 MEQ/L (98-107); CREATINE KINASE 172 U/L (39-308); DIGOXIN 0.6 NG/ML (0.8-2.0); GLOMERULAR FILTRATION RATE 45 ML/MIN (>89); POTASSIUM 4.8 MEQ/L (3.5-5.1); SODIUM (NA) 136 MEQ/L (136-145); TOTAL BILIRUBIN ADULT 2.7 MG/DL (0.2-1.0)
[2016-11-01 00:31] LABS: CKMB LESS THAN 0.5 NG/ML (0.5-3.6)
[2016-11-01] MEDS ORDERED: IOHEXOL 350 MG/ML 10 ML VIAL (for RAD DIAG) IV ONE (01:23)
[2016-11-01 01:33] LABS: BACTERIA, URINE RARE /hpf; BLOOD, URINE NEG (NEG); COMMENT (UR) CULT NOT INDICATED; CULTURE IF INDICATED CULT NOT INDICATED; GLUCOSE,URINE NEG (NEG); HYALINE CAST, URINE 38 /lpf (RARE); KETONE, URINE NEG (NEG); NITRITE,URINE NEG (NEG); PH, URINE 5.5 (5.0-8.5); URINE COLOR YELLOW (YELLW/STRAW)
--- NOTE | 2016-11-01 02:03 | RADRPT ---
EXAM DATE/TIME: 11/01/2016 01:12 [facility] COMPARISON: No previous studies available for comparison. INDICATIONS : Shortness of breath with left leg swelling. IV CONTRAST: 70 cc Omnipaque 350 (iohexol) IV RADIATION DOSE: 23.38 CTDIvol (mGy) MEDICAL HISTORY : Cerebrovascular disease. Cardiovascular disease Hypertension. SURGICAL HISTORY : Pacemaker. ENCOUNTER: Initial ACUITY: 1 day PAIN SCALE: 2/10 LOCATION: chest TECHNIQUE: Volumetric scanning of the chest was performed using a pulmonary embolism protocol MIP images were re constructed. Using automated exposure control and adjustment of the mA and/or kV according to patien t size, radiation dose was kept as low as reasonably achievable to obtain optimal diagnostic quality images. DICOM format image data is available electronically for review and comparison. FINDINGS: PULMONARY ARTERIES: No filling defects are seen in the pulmonary arteries through the segmental level. LUNGS: There is patchy densities in the right middle lobe and right lower lobe.. No concerning pulmonary no dule is visualized. PLEURAE: There is no pleural thickening or pleural effusion. MEDIASTINUM: There is good visualization of the great vessels of the middle mediastinum. No evidence of mediastin al or hilar adenopathy/mass. Heart enlarged. MUSCULOSKELETAL: Within normal limits for patient age. MISCELLANEOUS: The visualized upper abdominal organs demonstrate no acute abnormality. CONCLUSION: 1. No evidence for pulmonary embolism. 2. Patchy infiltrates right middle lobe and right lower lobe. 3. Cardiomegaly. Sammy Ornelas MD on November 01, 2016 at 1:59 Board Certified Radiologist. This report was verified electronically.
[2016-11-01] MEDS ORDERED: AZITHROMYCIN INJ 500 MG in SODIUM CHLOR 0.9% 250 ML INJ 250 ML IV ONE (02:15)
[2016-11-01] MEDS ORDERED: cefTRIAXone INJ 1,000 MG in SODIUM CHLORIDE 0.9% INJ 100 ML IV ONE (02:15)
[2016-11-01] MEDS ORDERED: RESP: ALBUTEROL 2.5 MG/IPRATROPIUM 0.5 MG NEB (SCH) NEB ONE (02:30)
[2016-11-01] MEDS ORDERED: LACTULOSE SYRUP 20 GM/30 ML CUP PO PRN (04:30)
[2016-11-01] MEDS ORDERED: MAGNESIUM HYDROXIDE SUSP 30 ML CUP PO PRN (04:30)
[2016-11-01] MEDS ORDERED: ZOLPIDEM TARTRATE 5 MG TAB PO PRN (04:30)
[2016-11-01] MEDS ORDERED: SENNOSIDES 8.6 MG TAB PO PRN (04:30)
[2016-11-01] MEDS ORDERED: ACETAMINOPHEN 325 MG TAB PO PRN (04:30)
[2016-11-01] MEDS ORDERED: NALOXONE HCL 0.4 MG/ML AMP IV PRN (04:30)
[2016-11-01] MEDS ORDERED: ONDANSETRON HCL 4 MG/2 ML VIAL IVP PRN (04:30)
[2016-11-01] MEDS ORDERED: BISACODYL 10 MG SUPP RECTAL PRN (04:30)
[2016-11-01] MEDS ORDERED: SODIUM CHLORIDE 0.9% FLUSH 10 ML FLUSH IV FLUSH PRN (04:30)
[2016-11-01] MEDS ORDERED: cloNIDine HCL 0.1 MG TAB PO PRN (04:45)
[2016-11-01] MEDS ORDERED: ACETAMINOPHEN/HYDROcodone 325 MG/5 MG TAB PO PRN (04:45)
[2016-11-01] MEDS: PANTOPRAZOLE SODIUM 40 MG VIAL IV PUSH SCH (08:58)
[2016-11-01] MEDS: ASPIRIN 81 MG CHEW TAB CHEW SCH (08:58)
[2016-11-01] MEDS: SODIUM CHLORIDE 0.9% FLUSH 10 ML FLUSH IV FLUSH SCH ×2 (08:58→21:12)
[2016-11-01] MEDS: DIGOXIN 0.25 MG TAB PO SCH (08:59)
[2016-11-01] MEDS: CARVEDILOL 3.125 MG TAB PO SCH ×2 (08:59→21:12)
[2016-11-01] MEDS: SPIRONOLACTONE 25 MG TAB PO SCH (08:59)
[2016-11-01] MEDS: DOCUSATE SODIUM 50 MG/SENNA 8.6 MG TAB PO SCH ×2 (09:00→21:00)
[2016-11-01] MEDS ORDERED: FUROSEMIDE 40 MG TAB PO SCH (09:00)
[2016-11-01] MEDS ORDERED: HEPARIN SODIUM - SQ 10,000 UNITS/ML VIAL SQ SCH (09:00)
--- NOTE | 2016-11-01 09:16 | EKG ---
Date Performed: 10/31/2016 Time Performed: 23:10:45 PTAGE: 61 years EKG: Sinus rhythm WITH FIRST DEGREE AV BLOCK WITH OCCASIONAL VENTRICULAR PREMATURE COMPLEXES LEFT ATRIAL ENLARGEMENT M ARKED RIGHT AXIS DEVIATION POSSIBLE ANTERIOR MYOCARDIAL INFARCTION ABNORMAL ECG PREVIOUS TRACING : 10/02/2016 05.07 DOCTOR: Robin Adames Interpretating Date/Time 11/01/2016 09:15:48
--- NOTE | 2016-11-01 10:08 | HHI.HP ---
History of Present Illness Primary Care Physician Tao Lopez MD Admission Diagnosis Pneumonia Diagnoses: Past Family Social History Allergies: Coded Allergies: No Known Allergies (Verified , 10/02/16) Physical Exam Vital Signs Vital Signs Date Time Temp Pulse Resp B/P Pulse Ox O2 Delivery O2 Flow Rate FiO2 11/01/16 08:16 97.8 62 16 94/69 94 11/01/16 01:49 80 22 114/78 99 Nasal Cannula 2 11/01/16 01:03 66 22 186/75 95 Nasal Cannula 2 10/31/16 23:15 22 92 Nasal Cannula 2 10/31/16 23:12 66 24 127/83 93 Room Air 10/31/16 22:58 22 Room Air 10/31/16 22:55 98.6 70 20 140/73 Physical Exam GENERAL: This is a well-nourished, well-developed patient, in no apparent distress. SKIN: No rashes, ecchymoses or lesions. Cool and dry. HEAD: Atraumatic. Normocephalic. No temporal or scalp tenderness. EYES: Pupils equal round and reactive. Extraocular motions intact. No scleral icterus. No injection or drainage. ENT: Nose without bleeding, purulent drainage or septal hematoma. Throat without erythema, tonsillar hypertrophy or exudate. Uvula midline. Airway patent. NECK: Trachea midline. No JVD or lymphadenopathy. Supple, nontender, no meningeal signs. CARDIOVASCULAR: Regular rate and rhythm without murmurs, gallops, or rubs. RESPIRATORY: Clear to auscultation. Breath sounds equal bilaterally. No wheezes , rales, or rhonchi. GASTROINTESTINAL: Abdomen soft, non-tender, nondistended. No hepato-splenomegaly , or palpable masses. No guarding. MUSCULOSKELETAL: Extremities without clubbing, cyanosis, or edema. No joint tenderness, effusion, or edema noted. No calf tenderness. Negative Homans sign bilaterally. NEUROLOGICAL: Awake and alert. Cranial nerves II through XII intact. Motor and sensory grossly within normal limits. Five out of 5 muscle strength in all muscle groups. Normal speech. Laboratory Laboratory Tests Test 10/31/16 11/01/16 23:28 01:04 White Blood Count 4.8 Red Blood Count 5.07 Hemoglobin 13.0 Hematocrit 42.3 Mean Corpuscular Volume 83.4 Mean Corpuscular Hemoglobin 25.7 Mean Corpuscular Hemoglobin 30.8 Concent Red Cell Distribution Width 21.6 Platelet Count 120 Mean Platelet Volume 10.6 Neutrophils (%) (Auto) 52.7 Lymphocytes (%) (Auto) 35.4 Monocytes (%) (Auto) 10.5 Eosinophils (%) (Auto) 0.8 Basophils (%) (Auto) 0.6 Neutrophils # (Auto) 2.5 Lymphocytes # (Auto) 1.7 Monocytes # (Auto) 0.5 Eosinophils # (Auto) 0.0 Basophils # (Auto) 0.0 CBC Comment DIFF FINAL Differential Comment Prothrombin Time 17.7 Prothromb Time International 1.6 Ratio Activated Partial 27.5 Thromboplast Time D-Dimer Quantitative (PE/DVT) 14.94 Sodium Level 136 Potassium Level 4.8 Chloride Level 99 Carbon Dioxide Level 28.1 Anion Gap 9 Blood Urea Nitrogen 34 Creatinine 1.88 Estimat Glomerular Filtration 45 Rate Random Glucose 126 Calcium Level 8.5 Magnesium Level 2.0 Total Bilirubin 2.7 Aspartate Amino Transf 61 (AST/SGOT) Alanine Aminotransferase 27 (ALT/SGPT) Alkaline Phosphatase 289 Total Creatine Kinase 172 Creatine Kinase MB LESS THAN 0.5 Troponin I 0.04 B-Type Natriuretic Peptide 815 Total Protein 8.9 Albumin 2.3 Lipase 124 Digoxin Level 0.6 Urine Color YELLOW Urine Turbidity CLEAR Urine pH 5.5 Urine Specific [place] 1.013 Urine Protein 30 Urine Glucose (UA) NEG Urine Ketones NEG Urine Occult Blood NEG Urine Nitrite NEG Urine Bilirubin SMALL Urine Urobilinogen 4.0 Urine Leukocyte Esterase NEG Urine RBC 1 Urine WBC 2 Urine Bacteria RARE Urine Hyaline Casts 38 Microscopic Urinalysis Comment CULT NOT INDICATED Date/Time Procedure Status Source Growth 11/01/16 02:32 Aerobic Blood Culture Received Blood Peripheral Pending 11/01/16 02:32 Anaerobic Blood Culture Received Blood Peripheral Pending Result Diagram: 10/31/16 2328 10/31/168 Assessment and Plan Assessment and Plan INPT ADMIT FOR PNA AND CHF OUTLINED IN MY A/P. EXPECT THREE DAYS INPT STAY. PT WOULD AT HOME W/O INPT STAY. Tao Lopez MD Nov 01, 2016 10:08
--- NOTE | 2016-11-01 10:17 | MH ---
cc: TAO VILLA MD DATE OF ADMISSION: 11/01/2016 NEW PATIENT HISTORY AND PHYSICAL CHIEF COMPLAINT Shortness of breath, weakness. HISTORY OF PRESENT ILLNESS A 61-year-old -Thai male who has developed increased sputum production. He was seen again in my office after discharge and was complaining of cough and congestion. He was asking for something to help his cough. I gave him Tessalon Perles for him to use sparingly as he was desperate for something to give him some rest at night. The patient presented to the emergency room with chest pain. He was found to have pneumonia on CT scan. I was called by the emergency room physician after she gave him antibiotics and was asking for admission. The patient states that he had some chest pain and increased shortness of breath. He states that he is feeling about the same and we discussed a CT scan and he feels like there is something there on the right side of his chest and complains of rhonchi and coughing when he lays flat. PAST MEDICAL HISTORY 1. CHF. 2. Renal insufficiency. 3. Chronic kidney disease Stage III. 4. Chest pain. 5. Hypertension 6. Cardiomyopathy. 7. AICD placement. PAST SURGICAL HISTORY Pacemaker placement. FAMILY HISTORY Father with coronary disease, otherwise noncontributory he reports. SOCIAL HISTORY No alcohol, tobacco or illicit drug usage. He is disabled. REVIEW OF SYSTEMS Shortness of breath, weakness, increased edema, increased sputum production and dizziness. Negative 14-point review of systems otherwise. PHYSICAL EXAMINATION VITAL SIGNS: Temperature 97.8, pulse 62, respirations 16, blood pressure 94/69, pulse 94. GENERAL: In general he is an alert -Thai male. He is sitting at an incline, becomes short of breath when speaking. He talks in 3-4 word sentences. CHEST: He has crackles at the right central and right base area and harsh cough, otherwise clear. CARDIOVASCULAR: Regular rate and rhythm. ABDOMEN: Soft, nontender. No rebound or guarding. EXTREMITIES: 3+ edema of the patellas bilaterally. SKIN: Clear. NEURO: A&O x 3. Cranial nerves are intact. No sensory loss. No focal deficits. MUSCULOSKELETAL: He has pain on palpation of his chest wall bilaterally and otherwise normal musculoskeletal examination. Strength is 3/5 in all extremities. He is generally weak. LABORATORY DATA WBC is 4.8, platelets are 120. Creatinine 1.88. INR 1.6. AST 61, ALT 27, BNP 815. Digoxin 0.6. Urinalysis shows proteinuria and rare bacteria. ASSESSMENT 1. Community acquired pneumonia. 2. Systolic CHF. 3. Nonischemic cardiomyopathy. 4. Acute kidney injury. 5. Thrombocytopenia 6. Coagulopathy. 7. Elevated LFTs likely due to congestive hepatopathy. 8. Hypotension. PLAN 1. IV Rocephin daily. 2. IV azithromycin. 3. Lasix 40 IV b.i.d. 4. Aspirin 81 mg daily. 5. As needed clonidine. 6. Digoxin daily. 7. Heparin 5000 units subcu q.12 hours for DVT prophylaxis. Will hold on the heparin due to thrombocytopenia and will mobilize the patient will have SCDs and TEDs for prophylaxis. 8. Blood cultures. 9. Telemetry. 10. Dr. Styles consult. 11. Observation admission. Tao Villa MD RP/ARIANA /9:33 AM /9:53 AM
--- NOTE | 2016-11-01 14:01 | PD.CONS ---
HPI Service Cardiology Physicians Consult Requested By Dr Lopez Reason for Consult CHF/CAP Primary Care Physician Tao Lopez MD History of Present Illness The patient is a 61 year old male known to Dr. Styles with a cardiac history of chronic systolic CHF and non-ischemic cardiomyopathy EF 15% s/p AICD who was referred for cardiac transplant evaluation pending appt next week. The patient presented to the hospital for severe SOB, coughing and "feeling like his heart was racing inside his chest." He denies CP, fevers or chills, sick contacts or recent aspiration of food or liquid. He weighs himself daily and states that his weight is stable. He has some increase of lower extremity edema. (Blanca Tesfaye) Review of Systems Consitutional: DENIES: Fatigue, Fever, Chills, Weight gain, Weight loss Eyes: DENIES: Amaurosis Fugax, Change in vision HEENT: DENIES: Lightheadedness, Change in hearing Respiratory: COMPLAINS OF: Cough, Shortness of breath, Sputum production, DENIES: See HPI, Snoring, Wheezing Cardiovascular: COMPLAINS OF: Palpitations, Tachycardia, DENIES: See HPI, Chest pain, Syncope Gastrointestinal: DENIES: Nausea, Vomiting, Change in bowel habits, Reflux, Bloody stools, Melena Genitourinary: DENIES: Urinary incontinence, Difficulty voiding Integumentary: DENIES: Rash Neurologic: DENIES: Tingling or numbness, Memory problems, Poor Balance, Stroke symptoms Musculoskeletal: DENIES: Joint pain, Muscle pain, Limited range of motion, Back pain Psychiatric: DENIES: Anxiety, Depression, Sleep disturbances Hematologic: DENIES: Bruising tendencies, Bleeding tendencies Endocrine: DENIES: Weight gain, Weight loss, Thyroid disease (Blanca Tesfaye ) Past Family Social History Allergies: Coded Allergies: No Known Allergies (Verified , 10/02/16) Past Medical History See HPI Past Surgical History AICD 2011 Cardiac cath 2011 patent coronary arteries, decrease LV function Reported Medications Reported Meds & Active Scripts Active Adjustable Commode 3-in-1 (Device) 1 Mis Mis 1 Ea .ROUTE DIRECTED Lasix (Furosemide) 40 Mg Tab 40 Mg PO BID Reported Trazodone (Trazodone HCl) 50 Mg Tab 50 Mg PO HS Spironolactone 25 Mg Tab 25 Mg PO DAILY Digoxin 0.25 Mg Tab 0.25 Mg PO DAILY Carvedilol 3.125 Mg Tab 3.125 Mg PO BID Aspirin 81 Mg Chew 81 Mg CHEW DAILY Active Ordered Medications Current Medications Medications (Trade) Dose Ordered Sig/Levi Route Start Time Stop Time Status Last Admin (NS Flush) 2 ml UNSCH PRN IV FLUSH 11/01/16 04:30 (NS Flush) 2 ml BID IV FLUSH 11/01/16 09:00 11/01/16 08:58 (Tylenol) 650 mg Q4H PRN PO 11/01/16 04:30 (Zofran Inj) 4 mg Q6H PRN IVP 11/01/16 04:30 (Ambien) 5 mg HS PRN PO 11/01/16 04:30 (Narcan Inj) 0.4 mg UNSCH PRN IV 11/01/16 04:30 (Maria G-Colace) 1 tab BID PO 11/01/16 09:00 (Milk Of Magnesia Liq) 30 ml Q12H PRN PO 11/01/16 04:30 (Senokot) 17.2 mg Q12H PRN PO 11/01/16 04:30 (Dulcolax Supp) 10 mg DAILY PRN RECTAL 11/01/16 04:30 (Lactulose Liq) 30 ml DAILY PRN PO 11/01/16 04:30 (Aspirin Chew) 81 mg DAILY CHEW 11/01/16 09:00 11/01/16 08:58 (Coreg) 3.125 mg BID PO 11/01/16 09:00 11/01/16 08:59 (Lanoxin) 0.25 mg DAILY PO 11/01/16 09:00 11/01/16 08:59 (Aldactone) 25 mg DAILY PO 11/01/16 09:00 11/01/16 08:59 (Desyrel) 50 mg HS PO 11/01/16 21:00 Clonidine 0.1 mg 0.1 mg Q6H PRN PO 11/01/16 04:45 Ceftriaxone Sodium 1000 mg/ Sodium Chloride 100 ml @ 200 mls/hr Q24H IV 11/02/16 02:00 (Zithromax Inj/ NS 250 ml Inj) 250 ml @ 250 mls/hr Q24H IV 11/02/16 05:00 ([place] 5-325 Mg) 1 tab Q4H PRN PO 11/01/16 04:45 (Protonix Inj) 40 mg Q24H IV PUSH 11/01/16 09:00 11/01/16 08:58 (Lasix Inj) 40 mg BID@09,18 IV PUSH 11/01/16 18:00 Family History neg for heart disease Social History Negative for recent ETOH or smoking (Blanca Tesfaye) Physical Exam Vital Signs Vital Signs Date Time Temp Pulse Resp B/P Pulse Ox O2 Delivery O2 Flow Rate FiO2 11/01/16 11:38 97.8 61 18 115/74 96 11/01/16 08:59 65 11/01/16 08:16 97.8 62 16 94/69 94 11/01/16 01:49 80 22 114/78 99 Nasal Cannula 2 11/01/16 01:03 66 22 186/75 95 Nasal Cannula 2 10/31/16 23:15 22 92 Nasal Cannula 2 10/31/16 23:12 66 24 127/83 93 Room Air 10/31/16 22:58 22 Room Air 10/31/16 22:55 98.6 70 20 140/73 Physical Exam GENERAL: male in ER in mild distress SKIN: Warm and dry. HEAD: Atraumatic. Normocephalic. EYES: Pupils equal and round. No scleral icterus. No injection or drainage. ENT: No nasal bleeding or discharge. Mucous membranes pink and moist. NECK: Trachea midline. CARDIOVASCULAR: Regular rate and rhythm. ICD, BLE 2+ RESPIRATORY: RIGHT RALES, nasal cannula GASTROINTESTINAL: Abdomen soft, non-tender, nondistended. MUSCULOSKELETAL: Extremities without clubbing, cyanosis NEUROLOGICAL: Awake and alert. No obvious cranial nerve deficits. Motor grossly within normal limits. Five out of 5 muscle strength in the arms and legs. Normal speech. PSYCHIATRIC: Appropriate mood and affect; insight and judgment normal. Laboratory Laboratory Tests Test 10/31/16 11/01/16 23:28 01:04 White Blood Count 4.8 Red Blood Count 5.07 Hemoglobin 13.0 Hematocrit 42.3 Mean Corpuscular Volume 83.4 Mean Corpuscular Hemoglobin 25.7 Mean Corpuscular Hemoglobin 30.8 Concent Red Cell Distribution Width 21.6 Platelet Count 120 Mean Platelet Volume 10.6 Neutrophils (%) (Auto) 52.7 Lymphocytes (%) (Auto) 35.4 Monocytes (%) (Auto) 10.5 Eosinophils (%) (Auto) 0.8 Basophils (%) (Auto) 0.6 Neutrophils # (Auto) 2.5 Lymphocytes # (Auto) 1.7 Monocytes # (Auto) 0.5 Eosinophils # (Auto) 0.0 Basophils # (Auto) 0.0 CBC Comment DIFF FINAL Differential Comment Prothrombin Time 17.7 Prothromb Time International 1.6 Ratio Activated Partial 27.5 Thromboplast Time D-Dimer Quantitative (PE/DVT) 14.94 Sodium Level 136 Potassium Level 4.8 Chloride Level 99 Carbon Dioxide Level 28.1 Anion Gap 9 Blood Urea Nitrogen 34 Creatinine 1.88 Estimat Glomerular Filtration 45 Rate Random Glucose 126 Calcium Level 8.5 Magnesium Level 2.0 Total Bilirubin 2.7 Aspartate Amino Transf 61 (AST/SGOT) Alanine Aminotransferase 27 (ALT/SGPT) Alkaline Phosphatase 289 Total Creatine Kinase 172 Creatine Kinase MB LESS THAN 0.5 Troponin I 0.04 B-Type Natriuretic Peptide 815 Total Protein 8.9 Albumin 2.3 Lipase 124 Digoxin Level 0.6 Urine Color YELLOW Urine Turbidity CLEAR Urine pH 5.5 Urine Specific [place] 1.013 Urine Protein 30 Urine Glucose (UA) NEG Urine Ketones NEG Urine Occult Blood NEG Urine Nitrite NEG Urine Bilirubin SMALL Urine Urobilinogen 4.0 Urine Leukocyte Esterase NEG Urine RBC 1 Urine WBC 2 Urine Bacteria RARE Urine Hyaline Casts 38 Microscopic Urinalysis Comment CULT NOT INDICATED Date/Time Procedure Status Source Growth 11/01/16 02:32 Aerobic Blood Culture Received Blood Peripheral Pending 11/01/16 02:32 Anaerobic Blood Culture Received Blood Peripheral Pending (Blanca Tesfaye) Result Diagram: 10/31/16232710/31/[id number] Imaging Last [address] Angiography 11/01/16 0055 Signed Impressions: Service Date/Time: Tuesday, November 01, 2016 01:12 - CONCLUSION: 1. No evidence for pulmonary embolism. 2. Patchy infiltrates right middle lobe and right lower lobe. 3. Cardiomegaly. Sammy Ornelas MD Chest X-Ray 10/31/164 Signed Impressions: Service Date/Time: Monday, October 31, 2016 23:35 - CONCLUSION: 1. Right basilar consolidation could be related to parenchymal scarring versus less likely infiltrate as this was present on previous study. Sammy Ornelas MD (Blanca Tesfaye) Assessment and Plan Assessment and Plan ASSESSMENT SOB etiology seems to be a combination of pneumonia and systolic CHF exacerbation based on physical exam, imaging and labwork. Palpitations Ischemic cardiomyopathy EF 15%, AICD Elevated AST and Alk Phos PLAN: Continue antibiotics. Check procalcitonin Will have device interrogated Continue gentle diuresis with close monitoring of renal function. Patient seen and evaluated by Dr Tripathi who is covering for Dr Styles (Blanca Tesfaye) Assessment and Plan The exam, history, and the medical decision-making described in the above note were completed with the assistance of the mid-level provider. I reviewed and agree with the findings presented. I attest that I had a [id number] encounter with the patient on the same day, and personally performed and documented my assessment and findings in the medical record. Overall prognosis guarded (Tremayne Tripathi MD) Blanca Tesfaye Nov 01, 2016 14:01 Tremayne Tripathi MD Nov 01, 2016 15:03
[2016-11-01] MEDS: FUROSEMIDE 40 MG/4 ML VIAL IV PUSH SCH (17:33)
[2016-11-01] MEDS: traZODone HCL 50 MG TAB PO SCH (21:12)
[2016-11-02] VITALS (9 sets, daily range): BP systolic 101–119; BP diastolic 59–75; PULSE 62–74; RESP 14–18; TEMP 97.8–98.9; O2SAT 93–100
[2016-11-02] MEDS: cefTRIAXone INJ 1,000 MG in SODIUM CHLORIDE 0.9% INJ 100 ML IV SCH (02:20)
[2016-11-02] MEDS: AZITHROMYCIN INJ 500 MG in SODIUM CHLOR 0.9% 250 ML INJ 250 ML IV SCH (05:09)
[2016-11-02 07:49] LABS: BASOPHIL % 0.4 % (0.0-2.0); EOSINOPHIL % 0.5 % (0.0-4.0); HEMATOCRIT 41.8 % (39.0-51.0); HEMO FLAGS DIFF FINAL; LYMPHOCYTE # 1.4 TH/MM3 (1.0-4.8); MEAN CELL VOLUME 82.3 FL (80.0-100.0); MEAN CORPUSCULAR HGB CONC 31.6 % (32.0-36.0); MONO % 8.7 % (0.0-8.0); NEUT % 62.4 % (16.0-70.0); PLATELET COUNT 109 TH/MM3 (150-450); RED BLOOD COUNT 5.08 MIL/MM3 (4.50-5.90); RED CELL DISTRIBUTION WIDTH 20.8 % (11.6-17.2); WHITE BLOOD COUNT 4.9 TH/MM3 (4.0-11.0)
[2016-11-02 08:08] LABS: BICARBONATE 28.2 MEQ/L (21.0-32.0); POTASSIUM 3.9 MEQ/L (3.5-5.1)
--- NOTE | 2016-11-02 10:27 | PD.CARD.PN ---
Subjective Subjective Remarks He is feeling less SOB, still feels weak. Denies further palpitations. No CP. BLE edema same Objective Medications Current Medications Medications (Trade) Dose Ordered Sig/Levi Route Start Time Stop Time Status Last Admin (NS Flush) 2 ml UNSCH PRN IV FLUSH 11/01/16 04:30 (NS Flush) 2 ml BID IV FLUSH 11/01/16 09:00 11/01/16 21:12 (Tylenol) 650 mg Q4H PRN PO 11/01/16 04:30 (Zofran Inj) 4 mg Q6H PRN IVP 11/01/16 04:30 (Ambien) 5 mg HS PRN PO 11/01/16 04:30 (Narcan Inj) 0.4 mg UNSCH PRN IV 11/01/16 04:30 (Maria G-Colace) 1 tab BID PO 11/01/16 09:00 (Milk Of Magnesia Liq) 30 ml Q12H PRN PO 11/01/16 04:30 (Senokot) 17.2 mg Q12H PRN PO 11/01/16 04:30 (Dulcolax Supp) 10 mg DAILY PRN RECTAL 11/01/16 04:30 (Lactulose Liq) 30 ml DAILY PRN PO 11/01/16 04:30 (Aspirin Chew) 81 mg DAILY CHEW 11/01/16 09:00 11/01/16 08:58 (Coreg) 3.125 mg BID PO 11/01/16 09:00 11/01/16 21:12 (Lanoxin) 0.25 mg DAILY PO 11/01/16 09:00 11/01/16 08:59 (Aldactone) 25 mg DAILY PO 11/01/16 09:00 11/01/16 08:59 (Desyrel) 50 mg HS PO 11/01/16 21:00 11/01/16 21:12 Clonidine 0.1 mg 0.1 mg Q6H PRN PO 11/01/16 04:45 Ceftriaxone Sodium 1000 mg/ Sodium Chloride 100 ml @ 200 mls/hr Q24H IV 11/02/16 02:00 11/02/16 02:20 (Zithromax Inj/ NS 250 ml Inj) 250 ml @ 250 mls/hr Q24H IV 11/02/16 05:00 11/02/16 05:09 ([place] 5-325 Mg) 1 tab Q4H PRN PO 11/01/16 04:45 (Protonix Inj) 40 mg Q24H IV PUSH 11/01/16 09:00 11/01/16 08:58 (Lasix Inj) 40 mg BID@09,18 IV PUSH 11/01/16 18:00 11/01/16 17:33 Vital Signs / I&O Vital Signs Date Time Temp Pulse Resp B/P Pulse Ox O2 Delivery O2 Flow Rate FiO2 11/02/16 07:46 97.8 66 18 101/59 94 11/02/16 04:44 98.5 65 18 105/75 100 11/02/16 04:00 66 11/02/16 01:15 63 11/01/16 23:51 97.8 65 18 111/76 11/01/16 20:15 69 11/01/16 19:45 95.8 64 18 107/61 11/01/16 15:59 97.6 62 16 144/82 94 11/01/16 11:38 97.8 61 18 115/74 96 Physical Exam GENERAL: male, no distress SKIN: Warm and dry. HEAD: Normocephalic. EYES: No scleral icterus. No injection or drainage. NECK: Supple, trachea midline. 1-2 cm JVD CARDIOVASCULAR: Regular rate and rhythm with ectopic beats, left chest ICD RESPIRATORY: Right base rales GASTROINTESTINAL: Abdomen soft, non-tender, nondistended. MUSCULOSKELETAL: No cyanosis, BLE edema 2+ BACK: Nontender without obvious deformity. No CVA tenderness. Laboratory Laboratory Tests Test 11/01/16 11/02/16 16:10 06:26 Procalcitonin 0.43 ng/mL White Blood Count 4.9 TH/MM3 Red Blood Count 5.08 MIL/MM3 Hemoglobin 13.2 GM/DL Hematocrit 41.8 % Mean Corpuscular Volume 82.3 FL Mean Corpuscular Hemoglobin 26.0 PG Mean Corpuscular Hemoglobin 31.6 % Concent Red Cell Distribution Width 20.8 % Platelet Count 109 TH/MM3 Mean Platelet Volume 11.2 FL Neutrophils (%) (Auto) 62.4 % Lymphocytes (%) (Auto) 28.0 % Monocytes (%) (Auto) 8.7 % Eosinophils (%) (Auto) 0.5 % Basophils (%) (Auto) 0.4 % Neutrophils # (Auto) 3.0 TH/MM3 Lymphocytes # (Auto) 1.4 TH/MM3 Monocytes # (Auto) 0.4 TH/MM3 Eosinophils # (Auto) 0.0 TH/MM3 Basophils # (Auto) 0.0 TH/MM3 CBC Comment DIFF FINAL Differential Comment Sodium Level 137 MEQ/L Potassium Level 3.9 MEQ/L Chloride Level 98 MEQ/L Carbon Dioxide Level 28.2 MEQ/L Anion Gap 11 MEQ/L Blood Urea Nitrogen 36 MG/DL Creatinine 1.74 MG/DL Estimat Glomerular Filtration 49 ML/MIN Rate Random Glucose 108 MG/DL Calcium Level 9.0 MG/DL Imaging Last [address] Angiography 11/01/16 0055 Signed Impressions: Service Date/Time: Tuesday, November 01, 2016 01:12 - CONCLUSION: 1. No evidence for pulmonary embolism. 2. Patchy infiltrates right middle lobe and right lower lobe. 3. Cardiomegaly. Sammy Ornelas MD Chest X-Ray 10/31/16 8984 Signed Impressions: Service Date/Time: Monday, October 31, 2016 23:35 - CONCLUSION: 1. Right basilar consolidation could be related to parenchymal scarring versus less likely infiltrate as this was present on previous study. Sammy Ornelas MD Assessment and Plan Assessment and Plan ASSESSMENT SOB etiology seems to be a combination of pneumonia and systolic CHF exacerbation based on physical exam, imaging and labwork. Palpitations Ischemic cardiomyopathy EF 15%, AICD acute on chronic CKD, Cr 1.74, K+ 3.9 Elevated AST and Alk Phos, thrombocytopenia PLAN: Continue antibiotics for pneumonia Will have device interrogated Educated patient on the importance of fluid monitoring at home. Continue gentle diuresis with close monitoring of renal function. Patient seen and evaluated by Dr Tripathi who is covering for Blanca Ledbetter PA Nov 02, 2016 10:27
[2016-11-02] MEDS: ASPIRIN 81 MG CHEW TAB CHEW SCH (10:42)
[2016-11-02] MEDS: SPIRONOLACTONE 25 MG TAB PO SCH (10:42)
[2016-11-02] MEDS: DOCUSATE SODIUM 50 MG/SENNA 8.6 MG TAB PO SCH ×2 (10:42→21:00)
[2016-11-02] MEDS: FUROSEMIDE 40 MG/4 ML VIAL IV PUSH SCH ×2 (10:42→17:06)
[2016-11-02] MEDS: SODIUM CHLORIDE 0.9% FLUSH 10 ML FLUSH IV FLUSH SCH ×2 (10:43→23:18)
[2016-11-02] MEDS: DIGOXIN 0.25 MG TAB PO SCH (10:43)
[2016-11-02] MEDS: PANTOPRAZOLE SODIUM 40 MG VIAL IV PUSH SCH (10:43)
[2016-11-02] MEDS: CARVEDILOL 3.125 MG TAB PO SCH ×2 (10:43→23:11)
--- NOTE | 2016-11-02 14:33 | HHI.FPPN ---
Subjective Remarks c/o WEAKNESS C/O COUGH PT REPORTS HE IS NOT WALKING PT SAT UP W ASSIST D/W TELE REVIEWED CONSULT REPORTS REVIEWED Objective Vitals Vital Signs Date Time Temp Pulse Resp B/P Pulse Ox O2 Delivery O2 Flow Rate FiO2 11/02/16 11:44 97.9 62 16 101/69 93 11/02/16 07:46 97.8 66 18 101/59 94 11/02/16 04:44 98.5 65 18 105/75 100 11/02/16 04:00 66 11/02/16 01:15 63 11/01/16 23:51 97.8 65 18 111/76 11/01/16 20:15 69 11/01/16 19:45 95.8 64 18 107/61 11/01/16 15:59 97.6 62 16 144/82 94 Result Diagram: 11/02/1662511/02/16625 Objective Remarks GENERAL: SKIN: Warm and dry. HEAD: Atraumatic. Normocephalic. EYES: Pupils equal and round. No scleral icterus. No injection or drainage. ENT: No nasal bleeding or discharge. Mucous membranes pink and moist. NECK: Trachea midline. No JVD. CARDIOVASCULAR: Regular rate and rhythm. RESPIRATORY: No accessory muscle use. R Base crackles, patchy ronchi o/w at bases. Breath sounds equal bilaterally. GASTROINTESTINAL: Abdomen soft, non-tender, nondistended. Hepatic and splenic margins not palpable. MUSCULOSKELETAL: Extremities without clubbing, cyanosis, or edema. No obvious deformities. NEUROLOGICAL: Awake and alert. No obvious cranial nerve deficits. Motor grossly within normal limits. 3 out of 5 muscle strength in the arms and legs. Normal speech. PSYCHIATRIC: Appropriate mood and affect; insight and judgment normal. A/P Assessment and Plan ASSESSMENT 1. Community acquired pneumonia. 2. Systolic CHF. 3. Nonischemic cardiomyopathy. 4. Acute kidney injury. 5. Thrombocytopenia 6. Coagulopathy. 7. Elevated LFTs likely due to congestive hepatopathy. 8. Hypotension. PLAN 1. IV Rocephin daily. 2. IV azithromycin. 3. Lasix 40 IV b.i.d. 4. Aspirin 81 mg daily. 5. As needed clonidine. 6. Digoxin daily. 7. hold on the heparin due to thrombocytopenia and will mobilize the patient will have SCDs and TEDs for prophylaxis. 8. Blood cultures. 9. Telemetry. 10. Dr. Styles consult. 11. am CBC, CMP Tao Lopez MD Nov 02, 2016 14:33
[2016-11-02] MEDS: traZODone HCL 50 MG TAB PO SCH (23:11)
[2016-11-03] VITALS: BP 101/62; PULSE 64; RESP 16; TEMP 97.2; O2SAT 93
[2016-11-03] MEDS: cefTRIAXone INJ 1,000 MG in SODIUM CHLORIDE 0.9% INJ 100 ML IV SCH (03:28)
[2016-11-03 04:00] VITALS: BP 112/78; PULSE 61; RESP 18; TEMP 97.7; O2SAT 93
[2016-11-03] MEDS: AZITHROMYCIN INJ 500 MG in SODIUM CHLOR 0.9% 250 ML INJ 250 ML IV SCH (05:47)
[2016-11-03 08:07] VITALS: BP 138/66; PULSE 92; RESP 20; TEMP 97.2; O2SAT 84
[2016-11-03 08:12] LABS: AUTOMATED NEUTROPHIL # 3.2 TH/MM3 (1.8-7.7); BASOPHIL # 0.1 TH/MM3 (0-0.2); BASOPHIL % 1.1 % (0.0-2.0); EOSINOPHIL % 0.7 % (0.0-4.0); HEMATOCRIT 40.5 % (39.0-51.0); HEMO FLAGS DIFF FINAL; LYMPH % 25.2 % (9.0-44.0); LYMPHOCYTE # 1.3 TH/MM3 (1.0-4.8); MEAN CELL VOLUME 83.4 FL (80.0-100.0); MEAN CORPUSCULAR HEMOGLOBIN 25.4 PG (27.0-34.0); MEAN CORPUSCULAR HGB CONC 30.5 % (32.0-36.0); MONO % 10.2 % (0.0-8.0); NEUT % 62.8 % (16.0-70.0); PLATELET COUNT 100 TH/MM3 (150-450); RED BLOOD COUNT 4.86 MIL/MM3 (4.50-5.90); WHITE BLOOD COUNT 5.2 TH/MM3 (4.0-11.0)
[2016-11-03 08:37] LABS: BICARBONATE 28.7 MEQ/L (21.0-32.0); POTASSIUM 3.9 MEQ/L (3.5-5.1)
[2016-11-03] MEDS: ASPIRIN 81 MG CHEW TAB CHEW SCH (09:00)
[2016-11-03] MEDS: DIGOXIN 0.25 MG TAB PO SCH (09:00)
[2016-11-03] MEDS: DOCUSATE SODIUM 50 MG/SENNA 8.6 MG TAB PO SCH (09:00)
[2016-11-03] MEDS: SPIRONOLACTONE 25 MG TAB PO SCH (09:00)
[2016-11-03] MEDS: CARVEDILOL 3.125 MG TAB PO SCH (09:00)
[2016-11-03] MEDS: PANTOPRAZOLE SODIUM 40 MG VIAL IV PUSH SCH (09:01)
[2016-11-03] MEDS: SODIUM CHLORIDE 0.9% FLUSH 10 ML FLUSH IV FLUSH SCH (09:01)
[2016-11-03] MEDS: FUROSEMIDE 40 MG/4 ML VIAL IV PUSH SCH (09:01)
[2016-11-03 09:09] VITALS: PULSE 69
[2016-11-03] MEDS ORDERED: CEFU1TAB20 PO (09:32)
[2016-11-03] MEDS ORDERED: DOXY100C PO (09:32)
--- NOTE | 2016-11-03 09:33 | HHI.DCPOC ---
Discharge Care Plan Diagnosis: (1) Failure of outpatient treatment (2) Acute systolic CHF (congestive heart failure), NYHA class 3 (3) Chest pain, rule out acute myocardial infarction (4) Renal insufficiency (5) Acute renal failure (6) Hypertension (7) Nonischemic congestive cardiomyopathy (8) CKD (chronic kidney disease) stage 3, GFR 30-59 ml/min Goals to Promote Your Health * To prevent worsening of your condition and complications * To maintain your health at the optimal level Directions to Meet Your Goals Take your medications as prescribed Follow your dietary instruction Follow activity as directed Keep your appointments as scheduled Take your immunizations and boosters as scheduled If your symptoms worsen call your PCP, if no PCP go to Urgent Care Center or Emergency Room Smoking is Dangerous to Your Health. Avoid second hand smoke Call the 24-hour hour crisis hotline for domestic abuse at Tao Lopez MD Nov 03, 2016 09:33
--- NOTE | 2016-11-03 09:35 | HHI.DS ---
Discharge Summary Admission Date Nov 01, 2016 at 10:06 Discharge Date: Nov 03, 2016 Admitting Diagnosis Pneumonia (1) Failure of outpatient treatment (2) Acute systolic CHF (congestive heart failure), NYHA class 3 (3) Chest pain, rule out acute myocardial infarction (4) Nonischemic congestive cardiomyopathy (5) CKD (chronic kidney disease) stage 3, GFR 30-59 ml/min (6) Hypertension (7) Renal insufficiency (8) Acute renal failure CBC/BMP: 11/03/16 0748 11/03/16 0748 Significant Findings Laboratory Tests Test 10/31/16 11/01/16 11/02/16 11/03/16 23:28 01:04 06:26 07:48 Mean Corpuscular Hemoglobin 25.7 PG 26.0 PG 25.4 PG (27.0-34.0) (27.0-34.0) (27.0-34.0) Mean Corpuscular Hemoglobin 30.8 % 31.6 % 30.5 % Concent (32.0-36.0) (32.0-36.0) (32.0-36.0) Red Cell Distribution Width 21.6 % 20.8 % 21.0 % (11.6-17.2) (11.6-17.2) (11.6-17.2) Platelet Count 120 TH/MM3 109 TH/MM3 100 TH/MM3 (150-450) (150-450) (150-450) Monocytes (%) (Auto) 10.5 % 8.7 % (0.0-8.0) 10.2 % (0.0-8.0) (0.0-8.0) Prothrombin Time 17.7 SEC (9.8-11.6) D-Dimer Quantitative (PE/DVT) 14.94 MG/L FEU (0.00-0.50) Blood Urea Nitrogen 34 MG/DL (7-18) 36 MG/DL (7-18) 38 MG/DL (7-18) Creatinine 1.88 MG/DL 1.74 MG/DL 1.68 MG/DL (0.60-1.30) (0.60-1.30) (0.60-1.30) Estimat Glomerular Filtration 45 ML/MIN (>89) 49 ML/MIN (>89) 51 ML/MIN (>89) Rate Random Glucose 126 MG/DL 108 MG/DL (74-106) (74-106) Total Bilirubin 2.7 MG/DL (0.2-1.0) Aspartate Amino Transf 61 U/L (15-37) (AST/SGOT) Alkaline Phosphatase 289 U/L (45-117) Creatine Kinase MB LESS THAN 0.5 NG/ML (0.5-3.6) B-Type Natriuretic Peptide 815 PG/ML (0-100) Total Protein 8.9 GM/DL (6.4-8.2) Albumin 2.3 GM/DL (3.4-5.0) Digoxin Level 0.6 NG/ML (0.8-2.0) Urine Protein 30 mg/dL (NEG-TRACE) Urine Bilirubin SMALL (NEG) Urine Urobilinogen 4.0 MG/DL (LESS THAN 2.0) Urine Bacteria RARE /hpf (NONE) Mean Platelet Volume 11.2 FL (7.0-11.0) Hemoglobin 12.4 GM/DL (13.0-17.0) PE at Discharge GENERAL: SKIN: Warm and dry. HEAD: Atraumatic. Normocephalic. EYES: Pupils equal and round. No scleral icterus. No injection or drainage. ENT: No nasal bleeding or discharge. Mucous membranes pink and moist. NECK: Trachea midline. No JVD. CARDIOVASCULAR: Regular rate and rhythm. RESPIRATORY: No accessory muscle use. Clear to auscultation. Breath sounds equal bilaterally. GASTROINTESTINAL: Abdomen soft, non-tender, nondistended. Hepatic and splenic margins not palpable. MUSCULOSKELETAL: Extremities without clubbing, cyanosis, or edema. No obvious deformities. NEUROLOGICAL: Awake and alert. No obvious cranial nerve deficits. Motor grossly within normal limits. 4 out of 5 muscle strength in the arms and legs. Normal speech. PSYCHIATRIC: Appropriate mood and affect; insight and judgment normal. Discharge Disposition: Disch w/ Home Health Serv Discharge Instructions DIET: Follow Instructions for: Heart Healthy Diet Activities you can perform: Regular-No Restrictions Follow up Referrals: Cardiology - 1 Week with Chace Styles MD PCP Follow-up - 2-[address] VILLA New Medications: Cefuroxime (Cefuroxime) 500 Mg Tab 500 MG PO BID Infection Days 7 Ref 0 TAB Doxycycline Hyclate (Doxycycline Hyclate) 100 Mg Cap 100 MG PO BID Infection #20 Ref 0 CAP Continued Medications: Aspirin (Aspirin) 81 Mg Chew 81 MG CHEW DAILY Ref 0 TAB Carvedilol (Carvedilol) 3.125 Mg Tab 3.125 MG PO BID #60 Ref 0 TAB Digoxin (Digoxin) 0.25 Mg Tab 0.25 MG PO DAILY Regulate Heart Beat #30 Ref 0 TAB Furosemide (Lasix) 40 Mg Tab 40 MG PO BID chf #180 Ref 11 TAB Spironolactone (Spironolactone) 25 Mg Tab 25 MG PO DAILY #30 Ref 0 TAB Trazodone (Trazodone) 50 Mg Tab 50 MG PO HS Control Depression #30 Ref 0 TAB Tao Villa MD Nov 03, 2016 09:35
--- NOTE | 2016-11-03 09:37 | HHI.FF ---
Face to Face Verification Diagnosis: (1) CHF (congestive heart failure) (2) Acute renal failure (3) Renal insufficiency (4) Hypertension (5) CKD (chronic kidney disease) stage 3, GFR 30-59 ml/min (6) Nonischemic congestive cardiomyopathy (7) Chest pain, rule out acute myocardial infarction (8) Acute systolic CHF (congestive heart failure), NYHA class 3 (9) Failure of outpatient treatment Physical Therapy Order: Evaluate and Treat, Improve ambulation, Strength and gait training Home Health Nursing Order: Medical education Signs/symptoms of disease process CHF education Oxygen administration education Medication education-adverse effect Nursing assessment with vital signs Home Health Aide Order: To Assist In: Bathing and personal care, communications systems engineer and meal prep Showcase Maker Order: To Evaluate: Living conditions/environment, Support services Order: To Provide: Long range planning, Community services I have seen patient Pankaj Mann on 11/03/16. My clinical findings support the need for the requested home health care services because: Patient has SOB Deconditioned w/ increased weakness Med compliance is questionable Limited ability to care for self Need for psychosocial assistance Impaired cognition/judgement High risk of falls I certify that my clinical findings support that this patient is homebound because: Impaired cognitive ability/safety Unsteady gait/balance Unsafe to leave home unassisted Need for psychosocial assistance Unable to use public transportation Poor cardiac reserve Tao Lopez MD Nov 03, 2016 09:37
--- NOTE | 2016-11-03 09:55 | PD.CARD.PN ---
Subjective Subjective Remarks The patient "feels much better", less SOB, decreased cough and decreased BLE edema. The patient denies Sob with ambulation to the bathroom. Baseline is ability to ambulate 20 steps Objective Medications Current Medications Medications (Trade) Dose Ordered Sig/Levi Route Start Time Stop Time Status Last Admin (NS Flush) 2 ml UNSCH PRN IV FLUSH 11/01/16 04:30 (NS Flush) 2 ml BID IV FLUSH 11/01/16 09:00 11/03/16 09:01 (Tylenol) 650 mg Q4H PRN PO 11/01/16 04:30 (Zofran Inj) 4 mg Q6H PRN IVP 11/01/16 04:30 (Ambien) 5 mg HS PRN PO 11/01/16 04:30 (Narcan Inj) 0.4 mg UNSCH PRN IV 11/01/16 04:30 (Maria G-Colace) 1 tab BID PO 11/01/16 09:00 11/03/16 09:00 (Milk Of Magnesia Liq) 30 ml Q12H PRN PO 11/01/16 04:30 (Senokot) 17.2 mg Q12H PRN PO 11/01/16 04:30 (Dulcolax Supp) 10 mg DAILY PRN RECTAL 11/01/16 04:30 (Lactulose Liq) 30 ml DAILY PRN PO 11/01/16 04:30 (Aspirin Chew) 81 mg DAILY CHEW 11/01/16 09:00 11/03/16 09:00 (Coreg) 3.125 mg BID PO 11/01/16 09:00 11/03/16 09:00 (Lanoxin) 0.25 mg DAILY PO 11/01/16 09:00 11/03/16 09:00 (Aldactone) 25 mg DAILY PO 11/01/16 09:00 11/03/16 09:00 (Desyrel) 50 mg HS PO 11/01/16 21:00 11/02/16 23:11 Clonidine 0.1 mg 0.1 mg Q6H PRN PO 11/01/16 04:45 Ceftriaxone Sodium 1000 mg/ Sodium Chloride 100 ml @ 200 mls/hr Q24H IV 11/02/16 02:00 11/03/16 03:28 (Zithromax Inj/ NS 250 ml Inj) 250 ml @ 250 mls/hr Q24H IV 11/02/16 05:00 11/03/16 05:47 ([place] 5-325 Mg) 1 tab Q4H PRN PO 11/01/16 04:45 (Protonix Inj) 40 mg Q24H IV PUSH 11/01/16 09:00 11/03/16 09:01 (Lasix Inj) 40 mg BID@09,18 IV PUSH 11/01/16 18:00 11/03/16 09:01 Vital Signs / I&O Vital Signs Date Time Temp Pulse Resp B/P Pulse Ox O2 Delivery O2 Flow Rate FiO2 11/03/16 08:07 97.2 92 20 138/66 84 11/03/16 04:00 97.7 61 18 112/78 93 11/03/16 00:00 97.2 64 16 101/62 93 11/02/16 20:02 98.9 64 18 112/60 98 11/02/16 20:00 74 11/02/16 18:00 98.7 63 18 110/62 97 11/02/16 15:44 98.0 64 14 119/72 96 11/02/16 11:44 97.9 62 16 101/69 93 I/O 11/02/16 11/02/16 11/02/16 11/03/16 11/03/16 11/03/16 07:00 15:00 23:00 07:00 15:00 23:00 Intake Total 420 ml 415 ml Output Total 500 ml Balance -80 ml 415 ml Intake Oral 420 ml 240 ml IV Total 175 ml Output Urine Total 500 ml # Voids 1 # Bowel Movements 1 0 Physical Exam GENERAL: male, no distress SKIN: Warm and dry. HEAD: Normocephalic. EYES: No scleral icterus. No injection or drainage. NECK: Supple, trachea midline. no JVD CARDIOVASCULAR: Regular rate and rhythm with ectopic beats, left chest ICD RESPIRATORY: Lungs clear GASTROINTESTINAL: Abdomen soft, non-tender, nondistended. MUSCULOSKELETAL: No cyanosis, BLE edema 2+ BACK: Nontender without obvious deformity. No CVA tenderness. Laboratory Laboratory Tests Test 11/03/16 07:48 White Blood Count 5.2 TH/MM3 Red Blood Count 4.86 MIL/MM3 Hemoglobin 12.4 GM/DL Hematocrit 40.5 % Mean Corpuscular Volume 83.4 FL Mean Corpuscular Hemoglobin 25.4 PG Mean Corpuscular Hemoglobin 30.5 % Concent Red Cell Distribution Width 21.0 % Platelet Count 100 TH/MM3 Mean Platelet Volume 10.5 FL Neutrophils (%) (Auto) 62.8 % Lymphocytes (%) (Auto) 25.2 % Monocytes (%) (Auto) 10.2 % Eosinophils (%) (Auto) 0.7 % Basophils (%) (Auto) 1.1 % Neutrophils # (Auto) 3.2 TH/MM3 Lymphocytes # (Auto) 1.3 TH/MM3 Monocytes # (Auto) 0.5 TH/MM3 Eosinophils # (Auto) 0.0 TH/MM3 Basophils # (Auto) 0.1 TH/MM3 CBC Comment DIFF FINAL Differential Comment Sodium Level 137 MEQ/L Potassium Level 3.9 MEQ/L Chloride Level 98 MEQ/L Carbon Dioxide Level 28.7 MEQ/L Anion Gap 10 MEQ/L Blood Urea Nitrogen 38 MG/DL Creatinine 1.68 MG/DL Estimat Glomerular Filtration 51 ML/MIN Rate Random Glucose 101 MG/DL Calcium Level 8.8 MG/DL Imaging Last [address] Angiography 11/01/16 0055 Signed Impressions: Service Date/Time: Tuesday, November 01, 2016 01:12 - CONCLUSION: 1. No evidence for pulmonary embolism. 2. Patchy infiltrates right middle lobe and right lower lobe. 3. Cardiomegaly. Sammy Ornelas MD Chest X-Ray 10/31/16 6221 Signed Impressions: Service Date/Time: Monday, October 31, 2016 23:35 - CONCLUSION: 1. Right basilar consolidation could be related to parenchymal scarring versus less likely infiltrate as this was present on previous study. Sammy Ornelas MD Assessment and Plan Assessment and Plan ASSESSMENT SOB etiology seems to be a combination of pneumonia and acute on chronic systolic CHF exacerbation based on physical exam, imaging and labwork. Ischemic cardiomyopathy EF 15%, AICD Acute on chronic CKD, Cr 1.68, K+ 3.9 Elevated AST and Alk Phos, thrombocytopenia and increase INR. Hepatitis panel negative PLAN: Discussed with Dr. Lopez. Will discharge patient with close follow up. The patient has consult for heart transplant evaluation next week. He will follow up with Dr. Styles in the next 1-2 weeks. Will have device interrogated in the office on followup Assessment and plan discussed with Dr Tripathi who is covering for Blanca Ledbetter Nov 03, 2016 09:55
[2016-11-04] MEDS ORDERED: PANTOPRAZOLE SOD 40 MG DELAYED RELEASE TAB PO SCH (09:00)
== END 2016-11-03 12:43 | disposition home health service (06) | DRG 291 ==
LOC: NEPE 22:50 → NEDA 11-01 02:20 → NEPGCP 11-01 06:15 → OBSVTOIN 11-01 10:06 → N04B 11-02 16:45
PROVIDERS: ADMIT Family Medicine; ATTEND Family Medicine
DX: I13.0 Hypertensive heart and chronic kidney disease with heart failure and stage 1 through stage 4 chronic kidney disease, or unspecified chronic kidney disease (principal); I50.23 Acute on chronic systolic (congestive) heart failure; J18.9 Pneumonia, unspecified organism; I95.9 Hypotension, unspecified; D69.6 Thrombocytopenia, unspecified; D68.9 Coagulation defect, unspecified; N17.9 Acute kidney failure, unspecified; I42.0 Dilated cardiomyopathy; N18.3 Chronic kidney disease, stage 3 (moderate); K76.1 Chronic passive congestion of liver; Z82.49 Family history of ischemic heart disease and other diseases of the circulatory system; Z86.73 Personal history of transient ischemic attack (TIA), and cerebral infarction without residual deficits; Z95.810 Presence of automatic (implantable) cardiac defibrillator
CPT/HCPCS: 71010; 71275; 80048; 80053; 80074; 80162; 81001; 82550; 82552; 83690; 83735; 83880; 84145; 84484; 85025; 85379; 85610; 85730; 87040; 93005; 94664; C9113; J0456; J0696; J1940; J7050; Q9967

== ENCOUNTER → 2016-11-09 | Outpatient (CLI) | payer MEDICARE, OTHER ==
[~2016-11-09] MED LIST changes: +CEFU1TAB20 PO; +DOXY100C PO; -TRAM50TA PO; +TRAZ50TA12 PO; -ZOFR4TAB PO
[2016-11-09 15:38] LABS: BICARBONATE 27.3 MEQ/L (21.0-32.0)
[2016-11-09 15:44] LABS: POTASSIUM 4.6 MEQ/L (3.5-5.1)
== END ==
LOC: CLAB 14:36
PROVIDERS: ATTEND Internal Medicine Interventional Cardiology
DX: R60.9 Edema, unspecified (principal)
CPT/HCPCS: 36415; 80048

== ENCOUNTER → 2017-01-15 | Outpatient (CLI) | payer MEDICARE, OTHER ==
[2017-01-15 10:19] LABS: AUTOMATED NEUTROPHIL # 8.6 TH/MM3 (1.8-7.7); BASOPHIL % 0.3 % (0.0-2.0); EOSINOPHIL % 0.3 % (0.0-4.0); HEMATOCRIT 38.4 % (39.0-51.0); HEMO FLAGS DIFF FINAL; LYMPH % 6.2 % (9.0-44.0); LYMPHOCYTE # 0.6 TH/MM3 (1.0-4.8); MEAN CELL VOLUME 91.8 FL (80.0-100.0); MEAN CORPUSCULAR HEMOGLOBIN 29.4 PG (27.0-34.0); MONO % 4.8 % (0.0-8.0); NEUT % 88.4 % (16.0-70.0); PLATELET COUNT 171 TH/MM3 (150-450); RED BLOOD COUNT 4.19 MIL/MM3 (4.50-5.90); RED CELL DISTRIBUTION WIDTH 16.9 % (11.6-17.2); WHITE BLOOD COUNT 9.7 TH/MM3 (4.0-11.0)
[2017-01-15 10:39] LABS: ALT (GPT) 66 U/L (12-78); ANION GAP 7 MEQ/L (5-15); AST (GOT) 41 U/L (15-37); BICARBONATE 29.4 MEQ/L (21.0-32.0); BLOOD UREA NITROGEN 41 MG/DL (7-18); CHLORIDE 99 MEQ/L (98-107); GLOMERULAR FILTRATION RATE 43 ML/MIN (>89); GLUCOSE,FASTING 252 MG/DL (74-99); POTASSIUM 4.7 MEQ/L (3.5-5.1); SODIUM (NA) 135 MEQ/L (136-145)
[2017-01-15 10:41] LABS: ALKALINE PHOSPHATASE 356 U/L (45-117)
== END ==
LOC: CLAB 09:52
DX: Z94.1 Heart transplant status (principal)
CPT/HCPCS: 36415; 80053; 80197; 85025

== ENCOUNTER → 2017-10-15 | Outpatient (CLI) | payer MEDICARE, MEDICAID ==
[~2017-10-15] MED LIST changes: +ASPI-516 CHEW; -ASPI81CH CHEW
[2017-10-15 10:02] LABS: AUTOMATED NEUTROPHIL # 2.6 TH/MM3 (1.8-7.7); BASOPHIL % 0.9 % (0.0-2.0); EOSINOPHIL # 0.1 TH/MM3 (0-0.4); EOSINOPHIL % 1.8 % (0.0-4.0); HEMATOCRIT 37.9 % (39.0-51.0); HEMOGLOBIN 12.1 GM/DL (13.0-17.0); LYMPH % 17.5 % (9.0-44.0); LYMPHOCYTE # 0.7 TH/MM3 (1.0-4.8); MEAN CELL VOLUME 84.9 FL (80.0-100.0); MEAN CORPUSCULAR HEMOGLOBIN 27.1 PG (27.0-34.0); MEAN CORPUSCULAR HGB CONC 31.9 % (32.0-36.0); MEAN PLATELET VOLUME 8.3 FL (7.0-11.0); MONO % 15.8 % (0.0-8.0); MONOCYTE # 0.6 TH/MM3 (0-0.9); PLATELET COUNT 198 TH/MM3 (150-450); RED BLOOD COUNT 4.46 MIL/MM3 (4.50-5.90); RED CELL DISTRIBUTION WIDTH 15.5 % (11.6-17.2); WHITE BLOOD COUNT 4.1 TH/MM3 (4.0-11.0)
[2017-10-15 10:46] LABS: BICARBONATE 24.9 MEQ/L (21.0-32.0); CALCIUM 9.3 MG/DL (8.5-10.1); CREATININE 1.85 MG/DL (0.60-1.30)
[2017-10-15 11:17] LABS: BANDS 1 % (0-6); BASOPHILS 1 % (0-2); LYMPHOCYTES 15 % (9-44); MONOCYTES 15 % (0-8); MYELOCYTES 1 % (0-0); NEUTROPHIL # MANUAL DIFF 2.8 TH/MM3 (1.8-7.7); POLYS (SEG NEUTROPHILS) 67 % (16-70)
== END ==
LOC: CLAB 09:34
DX: Z94.1 Heart transplant status (principal)
CPT/HCPCS: 36415; 80048; 80197; 85007; 85027

== ENCOUNTER → 2017-10-18 | Outpatient (CLI) | payer MEDICARE, MEDICAID ==
[2017-10-18 09:18] LABS: AUTOMATED NEUTROPHIL # 2.8 TH/MM3 (1.8-7.7); BASOPHIL % 0.7 % (0.0-2.0); EOSINOPHIL % 0.7 % (0.0-4.0); HEMATOCRIT 39.1 % (39.0-51.0); HEMOGLOBIN 12.2 GM/DL (13.0-17.0); LYMPH % 16.6 % (9.0-44.0); LYMPHOCYTE # 0.7 TH/MM3 (1.0-4.8); MEAN CELL VOLUME 85.5 FL (80.0-100.0); MEAN CORPUSCULAR HEMOGLOBIN 26.8 PG (27.0-34.0); MEAN CORPUSCULAR HGB CONC 31.3 % (32.0-36.0); MEAN PLATELET VOLUME 8.2 FL (7.0-11.0); MONO % 13.7 % (0.0-8.0); MONOCYTE # 0.6 TH/MM3 (0-0.9); NEUT % 68.3 % (16.0-70.0); PLATELET COUNT 209 TH/MM3 (150-450); RED BLOOD COUNT 4.57 MIL/MM3 (4.50-5.90); RED CELL DISTRIBUTION WIDTH 15.6 % (11.6-17.2); WHITE BLOOD COUNT 4.1 TH/MM3 (4.0-11.0)
[2017-10-18 09:46] LABS: BICARBONATE 28.8 MEQ/L (21.0-32.0); CALCIUM 9.7 MG/DL (8.5-10.1); CREATININE 1.9 MG/DL (0.60-1.30)
[2017-10-18 10:50] LABS: LYMPHOCYTES 18 % (9-44); MONOCYTES 6 % (0-8); POLYS (SEG NEUTROPHILS) 73 % (16-70)
== END ==
LOC: CLAB 08:38
DX: Z94.1 Heart transplant status (principal)
CPT/HCPCS: 36415; 80048; 80197; 85007; 85027